=== PATIENT | female | born 1965 | race Caucasian/White ===

== ENCOUNTER → 2017-08-19 | Outpatient (CLI) | payer OTHER ==
[~2017-08-19] MED LIST: BUPR150T2; CITA20; CYCL10 PO; DOCU100 PO; HYDACE10B PO; HYDR1TAB94 PO; MAGN84; MULTI VITAMIN1 EACH PO; Norco 5-325 Ta1 EACH PO; OXYACE5T PO; Omeprazole20 M1; PANT20 PO; Percocet 5-3251 EACH PO; RABE20; RXCYCL10 PO; RXOXYACE PO; THIA100 PO; TOPI25 PO
[2017-08-19 16:56] LABS: BASOPHILS ABSOLUTE AUTO 0.07 K/mm3 (0.00-0.23); BASOPHILS PERCENT AUTO 1 % (0-2); EOSINOPHILS ABSOLUTE AUTO 0.17 K/mm3 (0.00-0.68); EOSINOPHILS PERCENT AUTO 3 % (0-6); Hematocrit 37.9 % (33.0-51.0); Hemoglobin 12.1 g/dL (11.5-16.0); IMMATURE GRAN ABSOLUTE AUTO 0.02 K/mm3 (0.00-0.10); IMMATURE GRAN PERCENT AUTO 0 % (0-1); LYMPHOCYTES ABSOLUTE AUTO 1.49 K/mm3 (0.84-5.20); LYMPHOCYTES PERCENT AUTO 28 % (21-46); MONOCYTES ABSOLUTE AUTO 0.34 K/mm3 (0.16-1.47); MONOCYTES PERCENT AUTO 6 % (4-13); Mean Corpuscular HGB 26.7 pg (26.0-34.0); Mean Corpuscular HGB Conc 31.9 g/dL (31.5-36.5); Mean Corpuscular Volume 84 fL (80-100); Mean Platelet Volume 10.8 fL (9.1-12.4); NEUTROPHILS ABSOLUTE AUTO 3.23 K/mm3 (1.96-9.15); NEUTROPHILS PERCENT AUTO 61 % (41-73); Platelet Count 264 K/mm3 (150-400); RDW Coefficient Variation 17.1 % (11.7-14.2); RDW Standard Deviation 51.3 fL (35.1-46.3); Red Blood Cell Count 4.53 M/mm3 (3.80-5.20); White Blood Cell Count 5.32 K/mm3 (4.00-11.30)
[2017-08-19 17:10] LABS: Alanine Aminotransfer (ALT/SGP 32 U/L (12-78); Alk Phos 136 U/L (40-126); Anion Gap 8 mmol/L (6-16); Aspartate Aminotrans (AST/SGOT 45 U/L (12-37); Bilirubin, Total 0.4 mg/dL (0.1-1.0); Blood Urea Nitrogen 8 mg/dL (8-24); CO2, Blood 30 mmol/L (21-32); Calcium, Blood 9.8 mg/dL (8.5-10.1); Chloride, Blood 100 mmol/L (98-108); Creatinine, Blood 0.73 mg/dL (0.40-1.00); Globulin, Blood 3.9 g/dL (2.2-4.0); Glomerular Filtration Rate >60 (60-); Glucose, Blood 111 mg/dL (70-99); Potassium, Blood 4.1 mmol/L (3.5-5.5); Sodium, Blood 138 mmol/L (136-145); Total Protein, Blood 7.9 g/dL (6.4-8.2)
[2017-08-19 17:12] LABS: Troponin I <0.017 ng/mL (0.000-0.040)
== END ==
LOC: LAB SHORT 16:49 → LAB EV 16:49
PROVIDERS: Family Medicine
DX: R06.02 Shortness of breath (principal)
CPT/HCPCS: 80048; 80053; 84484; 85025

== ENCOUNTER 2019-08-02 11:17 | Inpatient (IN) | payer OTHER ==
[~2019-08-02] VITALS: Ht 157.5 cm; Wt 97.5 kg
[2019-08-02 12:49] LABS: BASOPHILS ABSOLUTE AUTO 0.02 K/mm3 (0.00-0.23); BASOPHILS PERCENT AUTO 0 % (0-2); EOSINOPHILS ABSOLUTE AUTO 0.03 K/mm3 (0.00-0.68); EOSINOPHILS PERCENT AUTO 1 % (0-6); Hemoglobin 13.4 g/dL (11.5-16.0); IMMATURE GRAN ABSOLUTE AUTO 0.04 K/mm3 (0.00-0.10); IMMATURE GRAN PERCENT AUTO 1 % (0-1); LYMPHOCYTES ABSOLUTE AUTO 0.93 K/mm3 (0.84-5.20); LYMPHOCYTES PERCENT AUTO 15 % (21-46); MONOCYTES PERCENT AUTO 10 % (4-13); Mean Corpuscular HGB 30.5 pg (26.0-34.0); Mean Corpuscular HGB Conc 31.9 g/dL (31.5-36.5); Mean Corpuscular Volume 96 fL (80-100); Mean Platelet Volume 12.5 fL (9.1-12.4); NEUTROPHILS ABSOLUTE AUTO 4.54 K/mm3 (1.96-9.15); NEUTROPHILS PERCENT AUTO 74 % (41-73); NRBC ABSOLUTE 0.02 K/mm3 (0.00-0.02); NRBC Auto 0.3 /100 WBC (0.0-0.2); Platelet Count 180 K/mm3 (150-400); RDW Coefficient Variation 21.4 % (11.7-14.2); RDW Standard Deviation 74.3 fL (35.1-46.3); White Blood Cell Count 6.16 K/mm3 (4.00-11.30)
[2019-08-02 13:09] LABS: Alanine Aminotransfer (ALT/SGP 122 U/L (12-78); Albumin, Blood 3.1 g/dL (3.4-5.0); Albumin/Globulin Ratio 0.7 (0.8-1.8); Alk Phos 331 U/L (50-136); Anion Gap 7 mmol/L (6-16); Aspartate Aminotrans (AST/SGOT 249 U/L (12-37); Bilirubin, Total 8.1 mg/dL (0.1-1.0); Blood Urea Nitrogen 3 mg/dL (8-24); Bun/Creatinine Ratio 6.3 (12.0-20.0); CO2, Blood 28 mmol/L (21-32); Calcium, Blood 9.2 mg/dL (8.5-10.1); Chloride, Blood 96 mmol/L (98-108); Creatinine, Blood 0.48 mg/dL (0.40-1.00); Globulin, Blood 4.6 g/dL (2.2-4.0); Glomerular Filtration Rate >60 (60-); Glucose, Blood 94 mg/dL (70-99); Potassium, Blood 5.2 mmol/L (3.5-5.5); Sodium, Blood 131 mmol/L (136-145); Total Protein, Blood 7.7 g/dL (6.4-8.2)
--- NOTE | 2019-08-02 20:28 | NUR ---
54 YR OLD FEMALE ADMITTED TO FLOOR FROM THE ED WITH PANCREATITIS - ETOH. CALL LIGHT IN REACH.
[2019-08-03 05:09] LABS: BASOPHILS ABSOLUTE AUTO 0.06 K/mm3 (0.00-0.23); BASOPHILS PERCENT AUTO 1 % (0-2); EOSINOPHILS PERCENT AUTO 1 % (0-6); Hematocrit 39.5 % (33.0-51.0); Hemoglobin 12.3 g/dL (11.5-16.0); IMMATURE GRAN ABSOLUTE AUTO 0.04 K/mm3 (0.00-0.10); IMMATURE GRAN PERCENT AUTO 1 % (0-1); LYMPHOCYTES ABSOLUTE AUTO 1.13 K/mm3 (0.84-5.20); LYMPHOCYTES PERCENT AUTO 15 % (21-46); MONOCYTES ABSOLUTE AUTO 1.08 K/mm3 (0.16-1.47); MONOCYTES PERCENT AUTO 15 % (4-13); Mean Corpuscular HGB 30.8 pg (26.0-34.0); Mean Corpuscular HGB Conc 31.1 g/dL (31.5-36.5); Mean Platelet Volume 11.6 fL (9.1-12.4); NEUTROPHILS ABSOLUTE AUTO 4.91 K/mm3 (1.96-9.15); NEUTROPHILS PERCENT AUTO 67 % (41-73); NRBC ABSOLUTE 0.04 K/mm3 (0.00-0.02); NRBC Auto 0.5 /100 WBC (0.0-0.2); Platelet Count 156 K/mm3 (150-400); RDW Coefficient Variation 21.1 % (11.7-14.2); RDW Standard Deviation 76.1 fL (35.1-46.3); Red Blood Cell Count 3.99 M/mm3 (3.80-5.20); White Blood Cell Count 7.32 K/mm3 (4.00-11.30)
[2019-08-03 05:15] LABS: Mean Corpuscular Volume 99 fL (80-100)
[2019-08-03 06:02] LABS: Alanine Aminotransfer (ALT/SGP 100 U/L (12-78); Albumin, Blood 2.9 g/dL (3.4-5.0); Albumin/Globulin Ratio 0.8 (0.8-1.8); Alk Phos 287 U/L (50-136); Anion Gap 9 mmol/L (6-16); Aspartate Aminotrans (AST/SGOT 190 U/L (12-37); Bilirubin, Total 8.7 mg/dL (0.1-1.0); Blood Urea Nitrogen 4 mg/dL (8-24); Bun/Creatinine Ratio 3.7 (12.0-20.0); CO2, Blood 27 mmol/L (21-32); Calcium, Blood 8.6 mg/dL (8.5-10.1); Chloride, Blood 97 mmol/L (98-108); Creatinine, Blood 1.07 mg/dL (0.40-1.00); Globulin, Blood 3.7 g/dL (2.2-4.0); Glomerular Filtration Rate 57 (60-); Glucose, Blood 84 mg/dL (70-99); Sodium, Blood 133 mmol/L (136-145); Total Protein, Blood 6.6 g/dL (6.4-8.2); Triglycerides 258 mg/dL (30-160)
[2019-08-03 06:07] LABS: Potassium, Blood 3.1 mmol/L (3.5-5.5)
--- NOTE | 2019-08-03 16:25 | NUR ---
Initial spiritual care note: Marina was welcoming of conversation and prayer. She admits to being alcoholic and spoke at length about her relapse back into drinking. She is familiar with the AA 12-step program and plans to become active in the program post-discharge. She has a list of all AA meetings in [facility] as well as a list of contacts. Marina was appreciaitve of gentle disability counselor and prayer. She is hopeful for the future. I will remain available.
--- NOTE | 2019-08-03 20:25 | NUR ---
SHIFT SUMMARY: PT CALM AND COOPERATIVE THIS SHIFT. PAIN BETTER CONTROLLED AFTER INCREASE IN DILAUDID DOSE. PLACED ON "UNOFFICIAL" CLEARS PRE DR. DAMON AND IS TOLERATING APPLE JUICE WITHOUT N/V AND NO REPORTED INCREASE IN PAIN. GETTING UP TO BR WITH SBA, CALLS APPROPRIATELY. SLIGHT JAUNDICE NOTED. WAS SEEN BY SERENITY BEE KEEPER, PLAN MAY BE OUTPT TREATMENT.
--- NOTE | 2019-08-04 03:12 | NUR ---
SHIFT SUMMARY HAS BEEN RESTING QUIETLY WITH FEW INTERRUPTIONS. IVF OF NS CONTINUES AT 125 ML PER HR. ANALGESIC ADMINISTERED FOR ABD PAIN. TOLERATING CLEAR LIQUIDS. CALL LIGHT IN REACH
[2019-08-04 05:11] LABS: BASOPHILS ABSOLUTE AUTO 0.06 K/mm3 (0.00-0.23); BASOPHILS PERCENT AUTO 1 % (0-2); EOSINOPHILS ABSOLUTE AUTO 0.09 K/mm3 (0.00-0.68); EOSINOPHILS PERCENT AUTO 1 % (0-6); Hematocrit 39.3 % (33.0-51.0); Hemoglobin 11.8 g/dL (11.5-16.0); IMMATURE GRAN ABSOLUTE AUTO 0.07 K/mm3 (0.00-0.10); IMMATURE GRAN PERCENT AUTO 1 % (0-1); LYMPHOCYTES ABSOLUTE AUTO 1.16 K/mm3 (0.84-5.20); LYMPHOCYTES PERCENT AUTO 13 % (21-46); MONOCYTES ABSOLUTE AUTO 1.39 K/mm3 (0.16-1.47); MONOCYTES PERCENT AUTO 16 % (4-13); Mean Corpuscular HGB 30.8 pg (26.0-34.0); Mean Platelet Volume 11.8 fL (9.1-12.4); NEUTROPHILS ABSOLUTE AUTO 5.93 K/mm3 (1.96-9.15); NEUTROPHILS PERCENT AUTO 68 % (41-73); NRBC ABSOLUTE 0.05 K/mm3 (0.00-0.02); NRBC Auto 0.6 /100 WBC (0.0-0.2); Platelet Count 161 K/mm3 (150-400); RDW Coefficient Variation 21.6 % (11.7-14.2); RDW Standard Deviation 82.4 fL (35.1-46.3); Red Blood Cell Count 3.83 M/mm3 (3.80-5.20)
[2019-08-04 05:26] LABS: Mean Corpuscular Volume 103 fL (80-100)
[2019-08-04 05:36] LABS: Albumin, Blood 2.8 g/dL (3.4-5.0); Albumin/Globulin Ratio 0.8 (0.8-1.8); Bilirubin, Total 11.5 mg/dL (0.1-1.0); Bun/Creatinine Ratio 3.5 (12.0-20.0); Calcium, Blood 8.9 mg/dL (8.5-10.1); Creatinine, Blood 2.3 mg/dL (0.40-1.00); Globulin, Blood 3.7 g/dL (2.2-4.0); Potassium, Blood 4.5 mmol/L (3.5-5.5); Total Protein, Blood 6.5 g/dL (6.4-8.2)
[2019-08-04 11:03] LABS: Source, Urine Clean Catch
[2019-08-04 11:05] LABS: International Normalized Ratio 1.14; Prothrombin Time Results 12.1 Sec (9.7-11.5)
[2019-08-04 11:07] LABS: Uric Acid, Blood 5.9 mg/dL (2.6-6.0)
[2019-08-04 11:17] LABS: Albumin, Blood 2.8 g/dL (3.4-5.0); Albumin/Globulin Ratio 0.8 (0.8-1.8); Bilirubin, Total 11.7 mg/dL (0.1-1.0); Calcium, Blood 8.7 mg/dL (8.5-10.1); Creatinine, Blood 1.99 mg/dL (0.40-1.00); Globulin, Blood 3.6 g/dL (2.2-4.0); Potassium, Blood 4.1 mmol/L (3.5-5.5); Thyroid Stimulating Hormone 3.26 uIU/mL (0.360-4.800); Total Protein, Blood 6.4 g/dL (6.4-8.2)
[2019-08-04 12:26] LABS: Appearance, Urine Turbid (Clear); Blood, Urine 5+ (Neg); Color, Urine Brown (P-Yellow); Glucose Qualitative, Urine Neg (Neg); Ketones, Urine 1+ (Neg); Leukocyte Esterase, Urine 1+ (Neg); Nitrite, Urine Neg (Neg); Protein, Urine 3+ (Neg); Urobilinogen, Urine 3+ (Normal)
[2019-08-04 12:41] LABS: Bilirubin, Urine 3+ (Neg)
[2019-08-04 12:44] LABS: Amorphous Mod (0-Heavy); Bacteria Mod /hpf; Mucus Light (0-Heavy); Squamous Epithelial Cells Mod /hpf (Few)
[2019-08-04 12:45] LABS: Granular Casts 50-100 /lpf (0)
--- NOTE | 2019-08-04 19:33 | NUR ---
SHIFT SUMMARY: NO ACUTE EVENTS THIS SHIFT. C/O ABDOMEN, BILAT HIP, AND BACK PAIN; MEDICATED PER EMAR WITH ADEQUATE RELIEF. GETTING UP TO BR WITH 1 PERSON ASSIST, TREMULOUS, STATED SHE FEELS WEAK; MAY BENEFIT FROM PT EVAL PRIOR TO D/C. TOLERATING FULL LIQ DIET, NO N/V OR REPORTED INCREASE IN PAIN. URINE IS VERY DARK YELLOW, SPECIMEN SENT FOR CULTURE. PLAN IS OUTPT ALCOHOL TREATMENT.
--- NOTE | 2019-08-05 05:26 | NUR ---
SHIFT SUMMARY: VSS. PULSE 101. AFEB. 02 99% ON RA. RESPS REG, NON-LABORED. CIWA SCORE 7. MED FOR LOWER ABD, HIP, BACK PAIN X2. PT REQUESTING PAIN MED Q 3 HRS. TREMULOUS EXT. DID NOT OBSERVE T/F TONIGHT. IV FLUIDS CONTINUOUSLY ORDERED. ABD SOFT, TENDER IN RUQ AND RLQ W/PALPATION. NO N/V. KIRILL CLEAR LIQUIDS WELL. NO ACUTE CHANGES OVERNIGHT. WILL CONT TO MONITOR.
[2019-08-05 07:01] LABS: Alanine Aminotransfer (ALT/SGP 80 U/L (12-78); Albumin, Blood 2.4 g/dL (3.4-5.0); Albumin/Globulin Ratio 0.7 (0.8-1.8); Alk Phos 264 U/L (50-136); Anion Gap 8 mmol/L (6-16); Aspartate Aminotrans (AST/SGOT 160 U/L (12-37); Bilirubin, Total 10.9 mg/dL (0.1-1.0); Blood Urea Nitrogen 8 mg/dL (8-24); CO2, Blood 22 mmol/L (21-32); Calcium, Blood 8.6 mg/dL (8.5-10.1); Chloride, Blood 101 mmol/L (98-108); Creatinine, Blood 0.89 mg/dL (0.40-1.00); Globulin, Blood 3.4 g/dL (2.2-4.0); Glomerular Filtration Rate >60 (60-); Glucose, Blood 74 mg/dL (70-99); Potassium, Blood 3.7 mmol/L (3.5-5.5); Sodium, Blood 131 mmol/L (136-145); Total Protein, Blood 5.8 g/dL (6.4-8.2)
--- NOTE | 2019-08-05 17:46 | NUR ---
SHIFT SUMMARY PATIENT MEDICATED SEVERAL TIMES FOR PAIN. DENIES NAUSEA AND SHORTNESS OF BREATH. PATIENT WORKED WITH PT TODAY, UP SBA, WALKED IN HALLWAY BRIEFLY. PATIENT NAPPING OFF AND ON DURING SHIFT. CALL LIGHT IN REACH.
--- NOTE | 2019-08-06 04:54 | NUR ---
FALL. PT CALLED STAFF TO HER ROOM AT 0405 AND REPORTS SHE GOT UP HURRIEDLY TO GO TO THE BATHROOM BECAUSE SHE HAD TO GO "BAD" AND DIDN'T WANT TO WAIT FOR ASSIST. SHE LOST HER BALANCE UPON STANDING AND FELL BACKWARDS LANDING ON HER BUTT AND HITTING HER HEAD AGAINST THE WALL. IV CAME OUT IN THE PROCESS. PT THEN GOT UP AND WENT TO THE BATHROOM AND RETURNED TO BED WHERE SHE THEN SIMS TO REPORT THE INCIDENT. NEURO CHECKS NEGATIVE. NO S/S OF INJURY. PT STATES SHE FEELS SHOOK UP BUT OTHERWISE OK. WILL CONT TO MONITOR. REMINDED PT TO CALL FOR ASSIST AND TURNED BED ALARM ON.
--- NOTE | 2019-08-06 05:33 | NUR ---
SHIFT SUMMARY: VSS. AFEB. AAOX4. ABLE TO COMMUNICATE NEEDS. PT HAS NO RESIDUAL EVIDENT AT THIS TIME FROM EARLIER FALL. DENIES SHANE. NEURO CHECKS WNL. MEDICATED FOR PAIN CONSISTENT W/PREVIOUS REPORTS OF PAIN. PT ALTERNATING IV DILAUDID W/PO NORCO. HAS SLEPT INTERMITTENTLY. NO ACUTE CHANGES. WILL CONT TO MONITOR.
[2019-08-06 06:35] LABS: Alanine Aminotransfer (ALT/SGP 71 U/L (12-78); Albumin, Blood 2.2 g/dL (3.4-5.0); Albumin/Globulin Ratio 0.7 (0.8-1.8); Alk Phos 249 U/L (50-136); Anion Gap 8 mmol/L (6-16); Aspartate Aminotrans (AST/SGOT 133 U/L (12-37); Bilirubin, Total 10.4 mg/dL (0.1-1.0); Blood Urea Nitrogen 5 mg/dL (8-24); Bun/Creatinine Ratio 9.4 (12.0-20.0); CO2, Blood 23 mmol/L (21-32); Calcium, Blood 8.2 mg/dL (8.5-10.1); Chloride, Blood 105 mmol/L (98-108); Creatinine, Blood 0.53 mg/dL (0.40-1.00); Globulin, Blood 3.1 g/dL (2.2-4.0); Glomerular Filtration Rate >60 (60-); Glucose, Blood 77 mg/dL (70-99); Potassium, Blood 3.4 mmol/L (3.5-5.5); Sodium, Blood 136 mmol/L (136-145); Total Protein, Blood 5.3 g/dL (6.4-8.2)
[2019-08-06] MEDS ORDERED: ACET325 PO (11:16)
[2019-08-06] MEDS ORDERED: DOCU100 PO (11:17)
[2019-08-06] MEDS ORDERED: SENOKOT PO (11:17)
[2019-08-06] MEDS ORDERED: HYDR1TAB94 (11:18)
--- NOTE | 2019-08-06 11:36 | NUR ---
DISCHARGE DISCHARGE MEDICATIONS AND INSTRUCTIONS EXPLAINED TO PATIENT. PATIENT STATED UNDERSTANDING. IMPORTANCE OF ALCOHOL ABSTINENCE DISCUSSED WITH PATIENT. FOLLOW UP WITH NEW PCP SCHEDULED. IV REMOVED WITHOUT DIFFICULTY. BELONGINGS WITH PATIENT. PATIENT TRANSFERED TO PRIVATE VEHICLE VIA WHEELCHAIR.
--- NOTE | 2019-08-09 05:29 | NUR ---
I looked into pt chart as a charge nurse to fill out post fall hudle information for Arlyn Cutler.
[2019-08-10] MEDS ORDERED: OMEP20ER PO (14:45)
[2019-08-13] MEDS ORDERED: PROBIOTIC1 EA13 PO (16:57)
[2019-08-13] MEDS ORDERED: ABAT250V (16:58)
[2019-08-13] MEDS ORDERED: CEPH500 PO (16:58)
== END 2019-08-06 11:32 | disposition home or self-care (01) | DRG 432 ==
LOC: ER 11:17 → MEDS 17:16
PROVIDERS: Emergency Medicine; ADMIT Internal Medicine
DX: K70.10 Alcoholic hepatitis without ascites (principal); K85.20 Alcohol induced acute pancreatitis without necrosis or infection; N17.9 Acute kidney failure, unspecified; E87.1 Hypo-osmolality and hyponatremia; F10.20 Alcohol dependence, uncomplicated; G89.29 Other chronic pain; M54.9 Dorsalgia, unspecified; K59.00 Constipation, unspecified; Z98.84 Bariatric surgery status; F32.9 Major depressive disorder, single episode, unspecified; K21.9 Gastro-esophageal reflux disease without esophagitis; E78.89 Other lipoprotein metabolism disorders
CPT/HCPCS: 36415; 74177; 80053; 81001; 83690; 84443; 84478; 84550; 85025; 85610; 87086; 96361-59; 96374-59; 96375-59; 97116; 97161; 99285-25; A9270; A9270-GY; C9113; J1170; J1650; J2405; J3411; J3475; J3480; J7030; J7042; J7120; Q0163; Q9967

== ENCOUNTER 2019-08-20 17:01 | Emergency (ER) | payer OTHER ==
[~2019-08-20] VITALS: Ht 157.5 cm; Wt 99.8 kg
[~2019-08-20 17:01] MED LIST changes: +ABAT250V; +ACET325 PO; +CEPH500 PO; +HYDR1TAB94; +OMEP20ER PO; +PROBIOTIC1 EA13 PO; +SENOKOT PO
[2019-08-20 17:50] LABS: BASOPHILS ABSOLUTE AUTO 0.08 K/mm3 (0.00-0.23); BASOPHILS PERCENT AUTO 1 % (0-2); EOSINOPHILS PERCENT AUTO 1 % (0-6); Hematocrit 34.9 % (33.0-51.0); Hemoglobin 11.1 g/dL (11.5-16.0); IMMATURE GRAN ABSOLUTE AUTO 0.06 K/mm3 (0.00-0.10); IMMATURE GRAN PERCENT AUTO 1 % (0-1); LYMPHOCYTES ABSOLUTE AUTO 1.32 K/mm3 (0.84-5.20); LYMPHOCYTES PERCENT AUTO 11 % (21-46); MONOCYTES ABSOLUTE AUTO 1.11 K/mm3 (0.16-1.47); MONOCYTES PERCENT AUTO 10 % (4-13); Mean Corpuscular HGB 31.4 pg (26.0-34.0); Mean Corpuscular HGB Conc 31.8 g/dL (31.5-36.5); Mean Corpuscular Volume 99 fL (80-100); Mean Platelet Volume 11.8 fL (9.1-12.4); NEUTROPHILS ABSOLUTE AUTO 8.92 K/mm3 (1.96-9.15); NEUTROPHILS PERCENT AUTO 77 % (41-73); Platelet Count 234 K/mm3 (150-400); RDW Coefficient Variation 21.2 % (11.7-14.2); RDW Standard Deviation 76.9 fL (35.1-46.3); Red Blood Cell Count 3.53 M/mm3 (3.80-5.20); White Blood Cell Count 11.59 K/mm3 (4.00-11.30)
[2019-08-20 18:12] LABS: Alanine Aminotransfer (ALT/SGP 64 U/L (12-78); Albumin, Blood 1.4 g/dL (3.4-5.0); Albumin/Globulin Ratio 0.4 (0.8-1.8); Alk Phos 254 U/L (50-136); Anion Gap 7 mmol/L (6-16); Aspartate Aminotrans (AST/SGOT 191 U/L (12-37); Bilirubin, Direct 12.4 mg/dL (0.0-0.3); Bilirubin, Indirect 2.8 mg/dL (0.1-0.7); Bilirubin, Total 15.2 mg/dL (0.1-1.0); Blood Urea Nitrogen 4 mg/dL (8-24); Bun/Creatinine Ratio 7.8 (12.0-20.0); CO2, Blood 22 mmol/L (21-32); Calcium, Blood 8.1 mg/dL (8.5-10.1); Chloride, Blood 101 mmol/L (98-108); Creatinine, Blood 0.51 mg/dL (0.40-1.00); Globulin, Blood 3.9 g/dL (2.2-4.0); Glomerular Filtration Rate >60 (60-); Glucose, Blood 89 mg/dL (70-99); Potassium, Blood 4.2 mmol/L (3.5-5.5); Sodium, Blood 130 mmol/L (136-145); Total Protein, Blood 5.3 g/dL (6.4-8.2); Troponin I <0.015 ng/mL (0.000-0.040)
[2019-08-20] MEDS ORDERED: B-1100 M1 PO (19:43)
[2019-08-20] MEDS ORDERED: ONDA4ODT MM (19:43)
[2019-08-20] MEDS ORDERED: Klonopin0.5 MG PO (19:44)
[2019-08-20 19:45] LABS: Source, Urine Clean Catch
[2019-08-20 19:53] LABS: Blood, Urine 2+ (Neg); Glucose Qualitative, Urine Neg (Neg); Ketones, Urine Neg (Neg); Leukocyte Esterase, Urine Neg (Neg); Nitrite, Urine Neg (Neg); Protein, Urine Neg (Neg); Urobilinogen, Urine 2+ (Normal); pH, Urine 6.5 (5.0-8.0)
[2019-08-20 20:08] LABS: Appearance, Urine Hazy (Clear); Bilirubin, Urine 3+ (Neg); Color, Urine Orange (P-Yellow); Red Blood Cells, Urine Not Seen /hpf (0-2); White Blood Cells, Urine Not Seen /hpf (0-5)
[2019-08-20 20:09] LABS: Bacteria Rare /hpf; Squamous Epithelial Cells Mod /hpf (Few); Transitional Epithelial Cells Mod /hpf (0-Rare)
== END 2019-08-20 20:20 | disposition home or self-care (01) ==
LOC: ER 17:01
PROVIDERS: Physician Assistant
DX: K70.9 Alcoholic liver disease, unspecified (principal); F32.9 Major depressive disorder, single episode, unspecified; K21.9 Gastro-esophageal reflux disease without esophagitis; Z79.899 Other long term (current) drug therapy; Z79.2 Long term (current) use of antibiotics
CPT/HCPCS: 36415; 71046; 80048; 80076; 81001; 83690; 83880; 84484; 85025; 93005; 93010; 99284-25

== ENCOUNTER 2019-09-09 17:33 | Inpatient (IN) | payer OTHER ==
[~2019-09-09] VITALS: Ht 157.5 cm; Wt 115.6 kg
[~2019-09-09 17:33] MED LIST changes: +B-1100 M1 PO; +Klonopin0.5 MG PO; +ONDA4ODT MM
[2019-09-09] MEDS ORDERED: FURO40 PO (17:54)
[2019-09-09 18:17] LABS: BASOPHILS ABSOLUTE AUTO 0.06 K/mm3 (0.00-0.23); BASOPHILS PERCENT AUTO 0 % (0-2); EOSINOPHILS ABSOLUTE AUTO 0.07 K/mm3 (0.00-0.68); EOSINOPHILS PERCENT AUTO 0 % (0-6); Hematocrit 39.8 % (33.0-51.0); Hemoglobin 13.4 g/dL (11.5-16.0); IMMATURE GRAN ABSOLUTE AUTO 0.24 K/mm3 (0.00-0.10); IMMATURE GRAN PERCENT AUTO 1 % (0-1); LYMPHOCYTES ABSOLUTE AUTO 2.07 K/mm3 (0.84-5.20); LYMPHOCYTES PERCENT AUTO 9 % (21-46); MONOCYTES PERCENT AUTO 8 % (4-13); Mean Corpuscular HGB 31.2 pg (26.0-34.0); Mean Corpuscular HGB Conc 33.7 g/dL (31.5-36.5); Mean Corpuscular Volume 93 fL (80-100); Mean Platelet Volume 11.7 fL (9.1-12.4); NEUTROPHILS ABSOLUTE AUTO 19.22 K/mm3 (1.96-9.15); NEUTROPHILS PERCENT AUTO 82 % (41-73); NRBC ABSOLUTE 0.02 K/mm3 (0.00-0.02); NRBC Auto 0.1 /100 WBC (0.0-0.2); Platelet Count 320 K/mm3 (150-400); RDW Coefficient Variation 19.6 % (11.7-14.2); RDW Standard Deviation 66.4 fL (35.1-46.3); Red Blood Cell Count 4.29 M/mm3 (3.80-5.20); White Blood Cell Count 23.46 K/mm3 (4.00-11.30)
[2019-09-09 18:39] LABS: Alanine Aminotransfer (ALT/SGP 98 U/L (12-78); Albumin, Blood 1.2 g/dL (3.4-5.0); Albumin/Globulin Ratio 0.3 (0.8-1.8); Alk Phos 289 U/L (50-136); Aspartate Aminotrans (AST/SGOT 195 U/L (12-37); Bilirubin, Direct 11.1 mg/dL (0.0-0.3); Bilirubin, Indirect 2.5 mg/dL (0.1-0.7); Bilirubin, Total 13.6 mg/dL (0.1-1.0); Globulin, Blood 4.2 g/dL (2.2-4.0); Total Protein, Blood 5.4 g/dL (6.4-8.2)
[2019-09-09 22:01] LABS: Source, Urine Clean Catch
[2019-09-09 22:08] LABS: Appearance, Urine Hazy (Clear); Bilirubin, Urine 3+ (Neg); Blood, Urine 2+ (Neg); Color, Urine Amber (P-Yellow); Glucose Qualitative, Urine Neg (Neg); Ketones, Urine 1+ (Neg); Leukocyte Esterase, Urine 1+ (Neg); Nitrite, Urine Pos (Neg); Protein, Urine 2+ (Neg); Urobilinogen, Urine 4+ (Normal)
[2019-09-09 22:16] LABS: Amorphous Mod (0-Heavy); Bacteria Mod /hpf; Granular Casts 0-2 /lpf (0); Mucus Light (0-Heavy); Red Blood Cells, Urine 0-2 /hpf (0-2); Squamous Epithelial Cells Mod /hpf (Few)
[2019-09-09] MEDS ORDERED: Citalopram HBr40 MG PO (22:47)
[2019-09-09] MEDS ORDERED: ROXICODONE5 MG PO (22:57)
[2019-09-09] MEDS ORDERED: SUCR1 PO (22:58)
[2019-09-09] MEDS ORDERED: OMEP20ER PO (22:58)
[2019-09-10 00:18] LABS: Anion Gap 12 mmol/L (6-16); Blood Urea Nitrogen 12 mg/dL (8-24); Bun/Creatinine Ratio 20.1 (12.0-20.0); CO2, Blood 25 mmol/L (21-32); Calcium, Blood 7.8 mg/dL (8.5-10.1); Chloride, Blood 92 mmol/L (98-108); Glomerular Filtration Rate >60 (60-); Glucose, Blood 96 mg/dL (70-99); Sodium, Blood 129 mmol/L (136-145)
[2019-09-10 00:21] LABS: Potassium, Blood 2.4 mmol/L (3.5-5.5)
[2019-09-10 01:52] LABS: International Normalized Ratio 1.6; Prothrombin Time Results 16.7 Sec (9.7-11.5)
[2019-09-10 02:01] LABS: Magnesium, Blood 2.1 mg/dL (1.6-2.4); Phosphorus, Blood 2.6 mg/dL (2.5-4.9); Thyroid Stimulating Hormone 1.71 uIU/mL (0.360-4.800)
[2019-09-10 04:54] LABS: Source, Urine Catheter
[2019-09-10 04:57] LABS: Blood, Urine 2+ (Neg); Glucose Qualitative, Urine Neg (Neg); Ketones, Urine 1+ (Neg); Leukocyte Esterase, Urine 1+ (Neg); Nitrite, Urine Pos (Neg); Protein, Urine 2+ (Neg); Urobilinogen, Urine 3+ (Normal)
[2019-09-10 05:00] LABS: Appearance, Urine Hazy (Clear); Bilirubin, Urine 3+ (Neg); Color, Urine Amber (P-Yellow)
[2019-09-10 05:04] LABS: White Blood Cells, Urine 0-2 /hpf (0-5)
[2019-09-10 05:05] LABS: Amorphous Heavy (0-Heavy); Bacteria Mod /hpf; Granular Casts 25-50 /lpf (0); Red Blood Cells, Urine 0-2 /hpf (0-2); Squamous Epithelial Cells Rare /hpf (Few)
[2019-09-10 09:02] LABS: BASOPHILS ABSOLUTE AUTO 0.07 K/mm3 (0.00-0.23); BASOPHILS PERCENT AUTO 0 % (0-2); EOSINOPHILS ABSOLUTE AUTO 0.16 K/mm3 (0.00-0.68); EOSINOPHILS PERCENT AUTO 1 % (0-6); Hematocrit 35.6 % (33.0-51.0); IMMATURE GRAN ABSOLUTE AUTO 0.26 K/mm3 (0.00-0.10); IMMATURE GRAN PERCENT AUTO 1 % (0-1); LYMPHOCYTES ABSOLUTE AUTO 2.05 K/mm3 (0.84-5.20); LYMPHOCYTES PERCENT AUTO 8 % (21-46); MONOCYTES ABSOLUTE AUTO 2.24 K/mm3 (0.16-1.47); MONOCYTES PERCENT AUTO 9 % (4-13); Mean Corpuscular HGB 31.5 pg (26.0-34.0); Mean Corpuscular HGB Conc 33.7 g/dL (31.5-36.5); Mean Corpuscular Volume 93 fL (80-100); NEUTROPHILS ABSOLUTE AUTO 21.58 K/mm3 (1.96-9.15); NEUTROPHILS PERCENT AUTO 82 % (41-73); Platelet Count 322 K/mm3 (150-400); RDW Coefficient Variation 19.5 % (11.7-14.2); RDW Standard Deviation 66.8 fL (35.1-46.3); Red Blood Cell Count 3.81 M/mm3 (3.80-5.20); White Blood Cell Count 26.36 K/mm3 (4.00-11.30)
[2019-09-10 09:19] LABS: Alanine Aminotransfer (ALT/SGP 82 U/L (12-78); Albumin, Blood 1.6 g/dL (3.4-5.0); Albumin/Globulin Ratio 0.5 (0.8-1.8); Alk Phos 245 U/L (50-136); Anion Gap 6 mmol/L (6-16); Aspartate Aminotrans (AST/SGOT 171 U/L (12-37); Bilirubin, Total 13.3 mg/dL (0.1-1.0); Blood Urea Nitrogen 10 mg/dL (8-24); CO2, Blood 29 mmol/L (21-32); Calcium, Blood 7.7 mg/dL (8.5-10.1); Chloride, Blood 98 mmol/L (98-108); Globulin, Blood 3.4 g/dL (2.2-4.0); Glomerular Filtration Rate >60 (60-); Glucose, Blood 108 mg/dL (70-99); Potassium, Blood 3.1 mmol/L (3.5-5.5); Sodium, Blood 133 mmol/L (136-145)
[2019-09-10 16:47] LABS: Phosphorus, Blood 3.1 mg/dL (2.5-4.9); Potassium, Blood 3.9 mmol/L (3.5-5.5)
[2019-09-11 04:31] LABS: BASOPHILS ABSOLUTE AUTO 0.05 K/mm3 (0.00-0.23); BASOPHILS PERCENT AUTO 0 % (0-2); EOSINOPHILS PERCENT AUTO 0 % (0-6); Hematocrit 33.7 % (33.0-51.0); Hemoglobin 11.2 g/dL (11.5-16.0); IMMATURE GRAN ABSOLUTE AUTO 0.25 K/mm3 (0.00-0.10); IMMATURE GRAN PERCENT AUTO 1 % (0-1); LYMPHOCYTES ABSOLUTE AUTO 2.23 K/mm3 (0.84-5.20); LYMPHOCYTES PERCENT AUTO 9 % (21-46); MONOCYTES ABSOLUTE AUTO 1.16 K/mm3 (0.16-1.47); MONOCYTES PERCENT AUTO 5 % (4-13); Mean Corpuscular HGB 31.5 pg (26.0-34.0); Mean Corpuscular HGB Conc 33.2 g/dL (31.5-36.5); Mean Corpuscular Volume 95 fL (80-100); Mean Platelet Volume 11.2 fL (9.1-12.4); NEUTROPHILS ABSOLUTE AUTO 20.94 K/mm3 (1.96-9.15); NEUTROPHILS PERCENT AUTO 85 % (41-73); Platelet Count 312 K/mm3 (150-400); RDW Standard Deviation 65.9 fL (35.1-46.3); Red Blood Cell Count 3.55 M/mm3 (3.80-5.20); White Blood Cell Count 24.63 K/mm3 (4.00-11.30)
[2019-09-11 04:55] LABS: Alanine Aminotransfer (ALT/SGP 84 U/L (12-78); Albumin, Blood 1.3 g/dL (3.4-5.0); Albumin/Globulin Ratio 0.4 (0.8-1.8); Alk Phos 233 U/L (50-136); Anion Gap 5 mmol/L (6-16); Aspartate Aminotrans (AST/SGOT 157 U/L (12-37); Bilirubin, Total 11.1 mg/dL (0.1-1.0); Blood Urea Nitrogen 8 mg/dL (8-24); Bun/Creatinine Ratio 23.9 (12.0-20.0); CO2, Blood 28 mmol/L (21-32); Calcium, Blood 7.8 mg/dL (8.5-10.1); Chloride, Blood 99 mmol/L (98-108); Creatinine, Blood 0.34 mg/dL (0.40-1.00); Globulin, Blood 3.5 g/dL (2.2-4.0); Glomerular Filtration Rate >60 (60-); Glucose, Blood 137 mg/dL (70-99); International Normalized Ratio 1.79; Magnesium, Blood 2.3 mg/dL (1.6-2.4); Phosphorus, Blood 1.9 mg/dL (2.5-4.9); Potassium, Blood 3.6 mmol/L (3.5-5.5); Prothrombin Time Results 18.5 Sec (9.7-11.5); Sodium, Blood 132 mmol/L (136-145); Total Protein, Blood 4.8 g/dL (6.4-8.2)
[2019-09-11 11:28] LABS: Source, Urine Catheter
[2019-09-11 11:58] LABS: Appearance, Urine Clear (Clear); Blood, Urine 1+ (Neg); Color, Urine Amber (P-Yellow); Glucose Qualitative, Urine Neg (Neg); Ketones, Urine Neg (Neg); Leukocyte Esterase, Urine 1+ (Neg); Nitrite, Urine Neg (Neg); Protein, Urine 1+ (Neg); Urobilinogen, Urine 2+ (Normal)
[2019-09-11 12:30] LABS: Bilirubin, Urine 3+ (Neg)
[2019-09-11 12:33] LABS: Red Blood Cells, Urine 0-2 /hpf (0-2); Squamous Epithelial Cells Few /hpf (Few)
[2019-09-11 12:34] LABS: Bacteria Rare /hpf; Mucus Light (0-Heavy)
[2019-09-11 12:40] LABS: Free Thyroxine 1.02 ng/dL (0.70-1.60)
[2019-09-11 12:42] LABS: Thyroid Stimulating Hormone 2.46 uIU/mL (0.360-4.800)
[2019-09-11 15:23] LABS: Phosphorus, Blood 2.5 mg/dL (2.5-4.9)
[2019-09-12 04:12] LABS: BASOPHILS ABSOLUTE AUTO 0.04 K/mm3 (0.00-0.23); BASOPHILS PERCENT AUTO 0 % (0-2); EOSINOPHILS ABSOLUTE AUTO 0.03 K/mm3 (0.00-0.68); EOSINOPHILS PERCENT AUTO 0 % (0-6); Hematocrit 34.4 % (33.0-51.0); Hemoglobin 11.4 g/dL (11.5-16.0); IMMATURE GRAN ABSOLUTE AUTO 0.32 K/mm3 (0.00-0.10); IMMATURE GRAN PERCENT AUTO 1 % (0-1); LYMPHOCYTES ABSOLUTE AUTO 2.18 K/mm3 (0.84-5.20); LYMPHOCYTES PERCENT AUTO 8 % (21-46); MONOCYTES ABSOLUTE AUTO 1.44 K/mm3 (0.16-1.47); MONOCYTES PERCENT AUTO 6 % (4-13); Mean Corpuscular HGB 31.5 pg (26.0-34.0); Mean Corpuscular HGB Conc 33.1 g/dL (31.5-36.5); Mean Corpuscular Volume 95 fL (80-100); Mean Platelet Volume 11.2 fL (9.1-12.4); NEUTROPHILS PERCENT AUTO 85 % (41-73); Platelet Count 302 K/mm3 (150-400); RDW Coefficient Variation 19.2 % (11.7-14.2); RDW Standard Deviation 66.5 fL (35.1-46.3); Red Blood Cell Count 3.62 M/mm3 (3.80-5.20); White Blood Cell Count 26.41 K/mm3 (4.00-11.30)
[2019-09-12 04:26] LABS: International Normalized Ratio 1.56; Prothrombin Time Results 16.3 Sec (9.7-11.5)
[2019-09-12 04:40] LABS: Alanine Aminotransfer (ALT/SGP 89 U/L (12-78); Albumin, Blood 1.3 g/dL (3.4-5.0); Anion Gap 5 mmol/L (6-16); Aspartate Aminotrans (AST/SGOT 152 U/L (12-37); Blood Urea Nitrogen 7 mg/dL (8-24); Bun/Creatinine Ratio 19.4 (12.0-20.0); CO2, Blood 28 mmol/L (21-32); Calcium, Blood 8.1 mg/dL (8.5-10.1); Chloride, Blood 100 mmol/L (98-108); Creatinine, Blood 0.36 mg/dL (0.40-1.00); Glomerular Filtration Rate >60 (60-); Glucose, Blood 106 mg/dL (70-99); Magnesium, Blood 2.1 mg/dL (1.6-2.4); Phosphorus, Blood 2.2 mg/dL (2.5-4.9); Potassium, Blood 3.8 mmol/L (3.5-5.5); Sodium, Blood 133 mmol/L (136-145)
[2019-09-12 04:43] LABS: Albumin/Globulin Ratio 0.4 (0.8-1.8); Alk Phos 232 U/L (50-136); Bilirubin, Total 8.9 mg/dL (0.1-1.0); Globulin, Blood 3.4 g/dL (2.2-4.0); Total Protein, Blood 4.7 g/dL (6.4-8.2)
[2019-09-12 07:11] LABS: COMPLEMENT C3, SERUM 89 mg/dL (82-167); COMPLEMENT C4, SERUM 18 mg/dL (14-44)
[2019-09-12 08:10] LABS: HBSAG SCREEN Negative (Negative); HEP A AB, IGM Negative (Negative); HEP B CORE AB, IGM Negative (Negative); HEP B CORE AB, TOT Negative (Negative); HEP C VIRUS AB <0.1 (0.0-0.9)
[2019-09-13 03:55] LABS: BASOPHILS ABSOLUTE AUTO 0.01 K/mm3 (0.00-0.23); BASOPHILS PERCENT AUTO 0 % (0-2); EOSINOPHILS ABSOLUTE AUTO 0.02 K/mm3 (0.00-0.68); EOSINOPHILS PERCENT AUTO 0 % (0-6); Hematocrit 32.6 % (33.0-51.0); Hemoglobin 10.9 g/dL (11.5-16.0); IMMATURE GRAN ABSOLUTE AUTO 0.14 K/mm3 (0.00-0.10); IMMATURE GRAN PERCENT AUTO 1 % (0-1); LYMPHOCYTES ABSOLUTE AUTO 1.32 K/mm3 (0.84-5.20); LYMPHOCYTES PERCENT AUTO 8 % (21-46); MONOCYTES ABSOLUTE AUTO 0.88 K/mm3 (0.16-1.47); MONOCYTES PERCENT AUTO 5 % (4-13); Mean Corpuscular HGB 32.1 pg (26.0-34.0); Mean Corpuscular HGB Conc 33.4 g/dL (31.5-36.5); Mean Corpuscular Volume 96 fL (80-100); Mean Platelet Volume 11.1 fL (9.1-12.4); NEUTROPHILS ABSOLUTE AUTO 14.34 K/mm3 (1.96-9.15); NEUTROPHILS PERCENT AUTO 86 % (41-73); Platelet Count 205 K/mm3 (150-400); RDW Coefficient Variation 19.3 % (11.7-14.2); White Blood Cell Count 16.71 K/mm3 (4.00-11.30)
[2019-09-13 04:18] LABS: Alanine Aminotransfer (ALT/SGP 93 U/L (12-78); Albumin, Blood 1.2 g/dL (3.4-5.0); Albumin/Globulin Ratio 0.4 (0.8-1.8); Alk Phos 219 U/L (50-136); Anion Gap 2 mmol/L (6-16); Aspartate Aminotrans (AST/SGOT 149 U/L (12-37); Bilirubin, Total 7.8 mg/dL (0.1-1.0); Blood Urea Nitrogen 8 mg/dL (8-24); CO2, Blood 30 mmol/L (21-32); Calcium, Blood 7.9 mg/dL (8.5-10.1); Chloride, Blood 100 mmol/L (98-108); Creatinine, Blood 0.38 mg/dL (0.40-1.00); Globulin, Blood 3.3 g/dL (2.2-4.0); Glomerular Filtration Rate >60 (60-); Glucose, Blood 87 mg/dL (70-99); Magnesium, Blood 2.3 mg/dL (1.6-2.4); Phosphorus, Blood 2.8 mg/dL (2.5-4.9); Sodium, Blood 132 mmol/L (136-145); Total Protein, Blood 4.5 g/dL (6.4-8.2)
[2019-09-13 09:51] LABS: ANA Pattern Homogenous; Antinuclear Antibody Screen Positive (Negative)
[2019-09-13 15:08] LABS: ANTI-DSDNA ANTIBODIES <1 IU/mL (0-9); RNP ANTIBODIES 0.9 AI (0.0-0.9); SJOGREN'S ANTI-SS-A <0.2 AI (0.0-0.9); SJOGREN'S ANTI-SS-B <0.2 AI (0.0-0.9); SMITH ANTIBODIES <0.2 AI (0.0-0.9)
[2019-09-14 12:54] LABS: Hematocrit 38.9 % (33.0-51.0); Hemoglobin 12.8 g/dL (11.5-16.0)
[2019-09-15 04:47] LABS: BASOPHILS ABSOLUTE AUTO 0.04 K/mm3 (0.00-0.23); BASOPHILS PERCENT AUTO 0 % (0-2); EOSINOPHILS ABSOLUTE AUTO 0.06 K/mm3 (0.00-0.68); EOSINOPHILS PERCENT AUTO 0 % (0-6); Hematocrit 37.4 % (33.0-51.0); Hemoglobin 12.2 g/dL (11.5-16.0); IMMATURE GRAN ABSOLUTE AUTO 0.33 K/mm3 (0.00-0.10); IMMATURE GRAN PERCENT AUTO 1 % (0-1); LYMPHOCYTES ABSOLUTE AUTO 2.07 K/mm3 (0.84-5.20); LYMPHOCYTES PERCENT AUTO 9 % (21-46); MONOCYTES ABSOLUTE AUTO 1.07 K/mm3 (0.16-1.47); MONOCYTES PERCENT AUTO 5 % (4-13); Mean Corpuscular HGB 31.5 pg (26.0-34.0); Mean Corpuscular HGB Conc 32.6 g/dL (31.5-36.5); Mean Corpuscular Volume 97 fL (80-100); Mean Platelet Volume 11.4 fL (9.1-12.4); NEUTROPHILS ABSOLUTE AUTO 19.34 K/mm3 (1.96-9.15); NEUTROPHILS PERCENT AUTO 84 % (41-73); Platelet Count 222 K/mm3 (150-400); RDW Coefficient Variation 19.9 % (11.7-14.2); RDW Standard Deviation 70.4 fL (35.1-46.3); Red Blood Cell Count 3.87 M/mm3 (3.80-5.20); White Blood Cell Count 22.91 K/mm3 (4.00-11.30)
[2019-09-15 05:14] LABS: Alanine Aminotransfer (ALT/SGP 111 U/L (12-78); Albumin, Blood 1.4 g/dL (3.4-5.0); Albumin/Globulin Ratio 0.4 (0.8-1.8); Alk Phos 231 U/L (50-136); Anion Gap 4 mmol/L (6-16); Aspartate Aminotrans (AST/SGOT 165 U/L (12-37); Bilirubin, Total 8.1 mg/dL (0.1-1.0); Blood Urea Nitrogen 12 mg/dL (8-24); Bun/Creatinine Ratio 21.8 (12.0-20.0); CO2, Blood 30 mmol/L (21-32); Calcium, Blood 8.2 mg/dL (8.5-10.1); Chloride, Blood 103 mmol/L (98-108); Creatinine, Blood 0.55 mg/dL (0.40-1.00); Globulin, Blood 3.4 g/dL (2.2-4.0); Glomerular Filtration Rate >60 (60-); Glucose, Blood 91 mg/dL (70-99); Potassium, Blood 4.4 mmol/L (3.5-5.5); Sodium, Blood 137 mmol/L (136-145); Total Protein, Blood 4.8 g/dL (6.4-8.2)
[2019-09-16 03:53] LABS: BASOPHILS ABSOLUTE AUTO 0.04 K/mm3 (0.00-0.23); BASOPHILS PERCENT AUTO 0 % (0-2); EOSINOPHILS ABSOLUTE AUTO 0.03 K/mm3 (0.00-0.68); EOSINOPHILS PERCENT AUTO 0 % (0-6); Hematocrit 32.1 % (33.0-51.0); Hemoglobin 10.5 g/dL (11.5-16.0); IMMATURE GRAN PERCENT AUTO 1 % (0-1); LYMPHOCYTES PERCENT AUTO 9 % (21-46); MONOCYTES ABSOLUTE AUTO 0.96 K/mm3 (0.16-1.47); MONOCYTES PERCENT AUTO 5 % (4-13); Mean Corpuscular HGB 31.3 pg (26.0-34.0); Mean Corpuscular HGB Conc 32.7 g/dL (31.5-36.5); Mean Corpuscular Volume 96 fL (80-100); Mean Platelet Volume 11.6 fL (9.1-12.4); NEUTROPHILS PERCENT AUTO 85 % (41-73); Platelet Count 183 K/mm3 (150-400); RDW Coefficient Variation 19.8 % (11.7-14.2); RDW Standard Deviation 69.4 fL (35.1-46.3); Red Blood Cell Count 3.35 M/mm3 (3.80-5.20); White Blood Cell Count 19.33 K/mm3 (4.00-11.30)
[2019-09-16 04:18] LABS: Alanine Aminotransfer (ALT/SGP 89 U/L (12-78); Albumin, Blood 1.6 g/dL (3.4-5.0); Albumin/Globulin Ratio 0.6 (0.8-1.8); Alk Phos 194 U/L (50-136); Anion Gap 4 mmol/L (6-16); Aspartate Aminotrans (AST/SGOT 124 U/L (12-37); Bilirubin, Total 6.7 mg/dL (0.1-1.0); Blood Urea Nitrogen 10 mg/dL (8-24); Bun/Creatinine Ratio 19.1 (12.0-20.0); CO2, Blood 30 mmol/L (21-32); Calcium, Blood 7.6 mg/dL (8.5-10.1); Chloride, Blood 104 mmol/L (98-108); Creatinine, Blood 0.52 mg/dL (0.40-1.00); Globulin, Blood 2.9 g/dL (2.2-4.0); Glomerular Filtration Rate >60 (60-); Glucose, Blood 101 mg/dL (70-99); Potassium, Blood 3.8 mmol/L (3.5-5.5); Sodium, Blood 138 mmol/L (136-145); Total Protein, Blood 4.5 g/dL (6.4-8.2)
[2019-09-16] MEDS ORDERED: SPIR25 PO (14:25)
[2019-09-16] MEDS ORDERED: AMOCLA875 PO (14:25)
== END 2019-09-16 17:42 | DRG 871 ==
LOC: ER 17:33 → PCU 23:39 → ICUE 23:39 → ICUW 23:39 → EDBEDREQ 23:52 → EDBEDREQTM 23:52 → EDBEDREQSVC 23:52 → ICUE 23:55 → PCU 09-13 11:56 → MEDS 09-16 10:20 → ENPENDDIS 09-16 13:24 → MEDS 09-16 17:42
PROVIDERS: Emergency Medicine; Internal Medicine; Internal Medicine Critical Care Medicine; Internal Medicine Gastroenterology; Internal Medicine Pulmonary Disease; Nurse Practitioner Acute Care; Physician Assistant; ADMIT Family Medicine
PROC: 05HM33Z Insertion of Infusion Device into Right Internal Jugular Vein, Percutaneous Approach (ICD-10-PCS; principal; 2019-09-10)
PROC: 3E053XZ Introduction of Vasopressor into Peripheral Artery, Percutaneous Approach (ICD-10-PCS; 2019-09-10)
DX: A41.9 Sepsis, unspecified organism (principal); K85.90 Acute pancreatitis without necrosis or infection, unspecified; R65.21 Severe sepsis with septic shock; J69.0 Pneumonitis due to inhalation of food and vomit; N39.0 Urinary tract infection, site not specified; Z20.828 Contact with and (suspected) exposure to other viral communicable diseases; E83.39 Other disorders of phosphorus metabolism; E83.51 Hypocalcemia; K21.9 Gastro-esophageal reflux disease without esophagitis; E87.6 Hypokalemia; N95.0 Postmenopausal bleeding; G89.29 Other chronic pain; F32.9 Major depressive disorder, single episode, unspecified; K52.9 Noninfective gastroenteritis and colitis, unspecified; E80.6 Other disorders of bilirubin metabolism; K70.30 Alcoholic cirrhosis of liver without ascites; Z98.84 Bariatric surgery status; E56.1 Deficiency of vitamin K; K70.11 Alcoholic hepatitis with ascites; K70.40 Alcoholic hepatic failure without coma
CPT/HCPCS: 36415; 71045; 74176; 76830; 76856; 80048; 80053; 80074; 80076; 81001; 82140; 82330; 82390; 83605; 83690; 83735; 83880; 84100; 84132; 84300; 84439; 84443; 85014; 85018; 85025; 85610; 85730; 86038; 86039; 86160; 86225; 86235; 86317; 86704; 86708; 86803; 87040; 87077; 87086; 87186; 87340; 87496; 87798; 93005; 93010; 93306; 93976; 96361; 96374; 97110; 97112; 97116; 97163; 97530; 99285-25; A9270; C1751; C9113; J0610; J0696; J1170; J1650; J1940; J2405; J2543; J2920; J3010; J3430; J3480; J7030; J7050; J7060; J7120; P9045; P9046; P9612; U0002

== ENCOUNTER 2019-10-10 08:59 | Inpatient (IN) | payer OTHER ==
[~2019-10-10] VITALS: Ht 157.5 cm; Wt 128.2 kg
[~2019-10-10 08:59] MED LIST changes: +AMOCLA875 PO; +Citalopram HBr40 MG PO; +FURO40 PO; +ONDA4 PO; -ONDA4ODT MM; +ROXICODONE5 MG PO; +SPIR25 PO
[2019-10-10 10:22] LABS: Alanine Aminotransfer (ALT/SGP 67 U/L (12-78); Albumin, Blood 1.2 g/dL (3.4-5.0); Albumin/Globulin Ratio 0.3 (0.8-1.8); Alk Phos 308 U/L (50-136); Anion Gap 8 mmol/L (6-16); Aspartate Aminotrans (AST/SGOT 139 U/L (12-37); Blood Urea Nitrogen 15 mg/dL (8-24); Bun/Creatinine Ratio 22.2 (12.0-20.0); CO2, Blood 23 mmol/L (21-32); Calcium, Blood 7.6 mg/dL (8.5-10.1); Chloride, Blood 95 mmol/L (98-108); Creatinine, Blood 0.68 mg/dL (0.40-1.00); Globulin, Blood 3.6 g/dL (2.2-4.0); Glomerular Filtration Rate >60 (60-); Glucose, Blood 79 mg/dL (70-99); Potassium, Blood 3.9 mmol/L (3.5-5.5); Sodium, Blood 126 mmol/L (136-145); Total Protein, Blood 4.8 g/dL (6.4-8.2); Troponin I <0.015 ng/mL (0.000-0.040)
[2019-10-10 10:53] LABS: International Normalized Ratio 1.52; Prothrombin Time Results 15.9 Sec (9.7-11.5)
[2019-10-10 12:56] LABS: BASOPHILS ABSOLUTE AUTO 0.09 K/mm3 (0.00-0.23); BASOPHILS PERCENT AUTO 1 % (0-2); EOSINOPHILS ABSOLUTE AUTO 0.19 K/mm3 (0.00-0.68); EOSINOPHILS PERCENT AUTO 1 % (0-6); Hemoglobin 11.1 g/dL (11.5-16.0); IMMATURE GRAN ABSOLUTE AUTO 0.11 K/mm3 (0.00-0.10); IMMATURE GRAN PERCENT AUTO 1 % (0-1); LYMPHOCYTES ABSOLUTE AUTO 3.32 K/mm3 (0.84-5.20); LYMPHOCYTES PERCENT AUTO 19 % (21-46); MONOCYTES ABSOLUTE AUTO 1.23 K/mm3 (0.16-1.47); MONOCYTES PERCENT AUTO 7 % (4-13); Mean Corpuscular HGB Conc 34.7 g/dL (31.5-36.5); Mean Corpuscular Volume 92 fL (80-100); Mean Platelet Volume 10.5 fL (9.1-12.4); NEUTROPHILS ABSOLUTE AUTO 12.88 K/mm3 (1.96-9.15); NEUTROPHILS PERCENT AUTO 72 % (41-73); NRBC ABSOLUTE 0.23 K/mm3 (0.00-0.02); NRBC Auto 1.3 /100 WBC (0.0-0.2); Platelet Count 210 K/mm3 (150-400); RDW Coefficient Variation 17.9 % (11.7-14.2); Red Blood Cell Count 3.47 M/mm3 (3.80-5.20); White Blood Cell Count 17.82 K/mm3 (4.00-11.30)
[2019-10-10] MEDS ORDERED: SUCR1 PO (13:29)
[2019-10-10] MEDS ORDERED: OXYC5 PO (16:33)
--- NOTE | 2019-10-10 18:47 | NUR ---
SHIFT SUMMARY ED ADMIT THIS AFTERNOON. PATIENT SETTLED INTO ROOM. PATIENT VERY EDEMATOUS AND JAUNDICED. PATIENT UP ONE ASSIST W/GAIT BELT AND FWW TO BSC. PATIENT PLEASANT AND ORIENTED BUT SLEEPY AND WEAK. CALL LIGHT IN REACH.
[2019-10-10 20:09] LABS: Source, Urine Voided
[2019-10-10 20:11] LABS: Bilirubin, Urine Neg (Neg); Blood, Urine 1+ (Neg); Glucose Qualitative, Urine Neg (Neg); Ketones, Urine Neg (Neg); Leukocyte Esterase, Urine 2+ (Neg); Nitrite, Urine Neg (Neg); Protein, Urine Neg (Neg); Urobilinogen, Urine NORM (Normal)
[2019-10-10 20:12] LABS: Appearance, Urine Clear (Clear); Color, Urine Yellow (P-Yellow)
[2019-10-10 20:24] LABS: Bacteria Mod /hpf; Red Blood Cells, Urine 0-2 /hpf (0-2); Squamous Epithelial Cells Few /hpf (Few)
[2019-10-10 20:44] LABS: Anion Gap 9 mmol/L (6-16); Blood Urea Nitrogen 14 mg/dL (8-24); CO2, Blood 23 mmol/L (21-32); Calcium, Blood 7.5 mg/dL (8.5-10.1); Chloride, Blood 96 mmol/L (98-108); Glomerular Filtration Rate >60 (60-); Glucose, Blood 75 mg/dL (70-99); Potassium, Blood 3.6 mmol/L (3.5-5.5); Sodium, Blood 128 mmol/L (136-145)
[2019-10-11 05:19] LABS: BASOPHILS ABSOLUTE AUTO 0.07 K/mm3 (0.00-0.23); BASOPHILS PERCENT AUTO 0 % (0-2); EOSINOPHILS ABSOLUTE AUTO 0.37 K/mm3 (0.00-0.68); EOSINOPHILS PERCENT AUTO 2 % (0-6); Hemoglobin 11.6 g/dL (11.5-16.0); IMMATURE GRAN ABSOLUTE AUTO 0.13 K/mm3 (0.00-0.10); IMMATURE GRAN PERCENT AUTO 1 % (0-1); LYMPHOCYTES ABSOLUTE AUTO 5.63 K/mm3 (0.84-5.20); LYMPHOCYTES PERCENT AUTO 31 % (21-46); MONOCYTES ABSOLUTE AUTO 1.11 K/mm3 (0.16-1.47); MONOCYTES PERCENT AUTO 6 % (4-13); Mean Corpuscular HGB 31.4 pg (26.0-34.0); Mean Corpuscular HGB Conc 33.1 g/dL (31.5-36.5); Mean Corpuscular Volume 95 fL (80-100); Mean Platelet Volume 10.7 fL (9.1-12.4); NEUTROPHILS ABSOLUTE AUTO 10.94 K/mm3 (1.96-9.15); NEUTROPHILS PERCENT AUTO 60 % (41-73); NRBC ABSOLUTE 0.02 K/mm3 (0.00-0.02); NRBC Auto 0.1 /100 WBC (0.0-0.2); Platelet Count 196 K/mm3 (150-400); RDW Coefficient Variation 17.7 % (11.7-14.2); RDW Standard Deviation 61.6 fL (35.1-46.3); Red Blood Cell Count 3.69 M/mm3 (3.80-5.20); White Blood Cell Count 18.25 K/mm3 (4.00-11.30)
[2019-10-11 05:46] LABS: Alanine Aminotransfer (ALT/SGP 67 U/L (12-78); Albumin, Blood 1.2 g/dL (3.4-5.0); Albumin/Globulin Ratio 0.3 (0.8-1.8); Alk Phos 305 U/L (50-136); Anion Gap 9 mmol/L (6-16); Aspartate Aminotrans (AST/SGOT 143 U/L (12-37); Bilirubin, Total 5.3 mg/dL (0.1-1.0); Blood Urea Nitrogen 14 mg/dL (8-24); Bun/Creatinine Ratio 19.6 (12.0-20.0); CO2, Blood 23 mmol/L (21-32); Calcium, Blood 7.6 mg/dL (8.5-10.1); Chloride, Blood 96 mmol/L (98-108); Creatinine, Blood 0.71 mg/dL (0.40-1.00); Globulin, Blood 3.9 g/dL (2.2-4.0); Glomerular Filtration Rate >60 (60-); Glucose, Blood 69 mg/dL (70-99); Potassium, Blood 3.4 mmol/L (3.5-5.5); Sodium, Blood 128 mmol/L (136-145); Total Protein, Blood 5.1 g/dL (6.4-8.2)
--- NOTE | 2019-10-11 07:26 | NUR ---
ASSUMED CARE OF PT- REPORT COMPLETED OUTSIDE THE ROOM AT THE REQUEST OF THE PT FAMILY. PER REPORT THE PT IS ON COMFORT CARE, HER SON IS AT THE BEDSIDE AND WILL CALL IF THE PT NEEDS ANYTHING. PT IS AWAKE INTERMITENTLY AND IS ABLE TO TELL STAFF SHE IS READY TO "GO." PER REPORT THE PT SON IS GOOD AT LETTING THE STAFF KNOW IF SHE NEEDS ANYTHING TO KEEP HER COMFORTABLE. PT LAST MEDICATED FOR PAIN AT 0600 AND LAST REPOSITIONED AT 0630 (PER REPORT FROM NIGHT MARIELLA CORDOBA).
--- NOTE | 2019-10-11 07:31 | NUR ---
ASSUMED CARE OF PT- BEDSIDE REPORT COMPLETED WITH NIGHT RN BERYL. PER REPORT PT ADMITTED FOR LIVER FAILURE. PT IS VERY EDEMATOUS AND IS SUPRISED AT HOW WEEK SHE FEELS. SHERRIE ELEVATED 5.0 ON ADMIT THIS AM LABS 5.3. PT HAS AN ELEVATED WBC COUNT THAT ALSO WENT UP WITH HER MORNING LABS. UA SENT TO THE LAB REVEALS A MODERATE AMOUNT OF BACTERIA AWAITING CULTURE RESULTS. UNSURE OF THE ACCURACY OF THE PT BP READINGS D/T EDEMA. PT SLEEPING AT THE TIME OF BEDSIDE REPORT CALL LIGHT IN REACH PT CALLS APPROPRIATELY.
--- NOTE | 2019-10-11 09:51 | NUR ---
CALLED DR VERDE- PT SBP 96 ON MORNING VITALS RECHECK REVEALS SBP 103, OK PER DR TO GIVE BOTHE MEDS
[2019-10-11 12:49] LABS: Anion Gap 11 mmol/L (6-16); Blood Urea Nitrogen 14 mg/dL (8-24); Bun/Creatinine Ratio 20.1 (12.0-20.0); CO2, Blood 23 mmol/L (21-32); Calcium, Blood 7.9 mg/dL (8.5-10.1); Chloride, Blood 95 mmol/L (98-108); Glomerular Filtration Rate >60 (60-); Glucose, Blood 81 mg/dL (70-99); Potassium, Blood 3.3 mmol/L (3.5-5.5); Sodium, Blood 129 mmol/L (136-145)
[2019-10-11 17:43] LABS: Anion Gap 9 mmol/L (6-16); Blood Urea Nitrogen 14 mg/dL (8-24); Bun/Creatinine Ratio 17.6 (12.0-20.0); CO2, Blood 23 mmol/L (21-32); Calcium, Blood 7.8 mg/dL (8.5-10.1); Chloride, Blood 97 mmol/L (98-108); Glomerular Filtration Rate >60 (60-); Glucose, Blood 87 mg/dL (70-99); Potassium, Blood 3.6 mmol/L (3.5-5.5); Sodium, Blood 129 mmol/L (136-145)
--- NOTE | 2019-10-11 18:00 | NUR ---
PT IS ASYMPTOMATIC BUT HYPOTENSIVE ATTEMPTS TO TAKE BP WITH THE BP MACHINE REVEAL SBP IN THE 60'S AND 70'S MANUAL SBP IS 84. PT DENIES FEELING DIZZY LONG SHE IS LAYING FLAT. CALLED DR LAGUNA- REQUESTED PARAMETERS FOR SPIRONOLACTONE AND IV LASIX. PER DR LAGUNA PT SHOULD RECIEVE IV LASIX FOR SBP ABOVE 90. ORDER RECIEVED TO HOLD SPIRONOLACTONE TONIGHT. ENQUIRED ABOUT ALBUMIN FOR THE PT HER LEVEL IS 1.2 WHICH IS LOW, HOWEVER LONG THE PT IS ASYMPTOMATIC, DR WOULD LIKE TO REFRAIN FROM USING IT AT THIS TIME. IF THE PT BECOMES SYMPTOMATIC THEN WE CAN REVISIT THE USE OF ALBUMIN. PT IS ALERT AND ORIENTED, SHE DENIES BEING "LOOPY OR DIZZY" WHILE LAYING FLAT.
--- NOTE | 2019-10-11 18:38 | NUR ---
SHIFT SUMMARY- PT ALERT AND ORIENTED. PT DID AMBULATE TO THE BATHROOM WITH STAFF ONCE TODAY BUT SHE BECAME VERY DIZZY AND PALE. ONCE SHE WAS BACK IN BED HER COLOR RETURNED AND SHE STATED SHE FELT BETTER. PT HAS HAD NO C/O PAIN T/O THE DAY. ONLY MANUAL BP'S SHOULD BE DONE FOR ACCURACY D/T PT EDEMA, WILL PASS ON TO NIGHT RN IN REPORT. SPOKE TO DR TO GET PARAMETERS FOR LASIX THIS EVENING SEE PREVIOUS NOTES FOR DETAILS. PT LAYING IN BED CALL LIGHT IN REACH NO S&S OF DISTRESS NOTED. PT HAS A LIMIT ON FREE WATER SHE HAS HAD VERY MINIMAL INPUT OF PO FLUID.
[2019-10-11 23:22] LABS: Anion Gap 6 mmol/L (6-16); Blood Urea Nitrogen 14 mg/dL (8-24); Bun/Creatinine Ratio 17.1 (12.0-20.0); CO2, Blood 27 mmol/L (21-32); Calcium, Blood 7.7 mg/dL (8.5-10.1); Chloride, Blood 96 mmol/L (98-108); Creatinine, Blood 0.82 mg/dL (0.40-1.00); Glomerular Filtration Rate >60 (60-); Glucose, Blood 101 mg/dL (70-99); Potassium, Blood 3.6 mmol/L (3.5-5.5); Sodium, Blood 129 mmol/L (136-145)
[2019-10-12 05:48] LABS: Anion Gap 7 mmol/L (6-16); Blood Urea Nitrogen 14 mg/dL (8-24); Bun/Creatinine Ratio 15.7 (12.0-20.0); CO2, Blood 27 mmol/L (21-32); Calcium, Blood 7.7 mg/dL (8.5-10.1); Chloride, Blood 97 mmol/L (98-108); Creatinine, Blood 0.89 mg/dL (0.40-1.00); Glomerular Filtration Rate >60 (60-); Glucose, Blood 86 mg/dL (70-99); Potassium, Blood 3.5 mmol/L (3.5-5.5); Sodium, Blood 131 mmol/L (136-145)
--- NOTE | 2019-10-12 06:26 | NUR ---
SHIFT SUMMARY PT HAS HAD NO ACUTE CHANGES THIS SHIFT, BP'S REMAIN LOW, ASYMPTOMATIC, 500ML FLUID BOLUS ADMIN THIS SHIFT, REPEAT BP REPORTED TO MD, PT HAS BEEN COMPLIANT W/FREE WATER RESTRICTION, SLEPT T/O THE NIGHT, SLEEPING AT THIS TIME, CALL LIGHT IN REACH, BED ALARM ACTIVE, WILL CONT TO MONITOR UNTIL REPORT GIVEN TO DAY RN.
--- NOTE | 2019-10-12 14:45 | NUR ---
INITIAL [facility] VISIT - Case conferenced with special duty nurse, nurse, PT prior to visit and Dom, MONSERRAT after my visit. EMR reviewed. I introduced myself to pt and her sister at the bedside. They are waiting to speak with drs further about dc planning to home concerns and have already spoken with CM. They thought I might me a state worker to help them apply for medicaid as recommended to fund caregivers. I restated my purpose here and had her sister pull out the papers CM had given her with the APD number highlighted. I reinforced that they should call APD today and request a screener & start of services application today. I gently explored the possibilty of completing an AD and pt confirms that she is not always able to think clearly, feels "fuzzy" and overwhelmed frequently. Her drs were waiting to come back in as requested so I excused myself and will return as planned with pt and sister at 3:30 today to finish conversation on advanced care planning, code status and surrogacy. Report to outside room, RN and CM after my visit.
--- NOTE | 2019-10-12 16:25 | NUR ---
Second [facility] Care visit with pt and sister, Lilly, after they had had the opportunity to meet with Marina's Drs again. We discussed in depth, advanced care planning, advocacy, medical decision making, code status options, identifying a proxy/surrogate decision maker, completing an advanced directive, POLST and a power of patent attorney so her sister can advocate and complete applications for her with APD, social security, disability benefits, etc. Pt and Lilly appreciative of all the info staff have provided today. They feel like they need to review, process and discuss further. They have copies of AD/POLST, Durable POA and booklet "Hard Choices for [place] People". They are revisiting pt's wishes in regard to code status. Pt is clear that she does not want CPR/intubation if she no longer has current brain function or she is bed bound. She believes she started an AD but none found on file in EMR/chart. When I arrived Staff Research Scientist was finishing visit. Staff Research Scientist to revisit tomorrow and assist with completion of documents if pt/sister ready and if they are not I will check in with them on . Pt had reported pain, RUQ and R to mid abd pain, 8/10. RN called Dr for analgesic RX and obtained VO for pain medication. Pt reports she will experience nausea with eating. Educated on preventative reporting of start of pain and nausea before she experiences 8/10 symptoms. Pt is scheduled for an abdominal ultrasound this evening. Plan for Palliative care to follow with CM and oil distributor tender for support and assist with advanced care planning and s/s management.
--- NOTE | 2019-10-12 17:46 | NUR ---
Initial spiritual care note: Marina was open to companionship and conversation. Her sister was present at bedside, having just arrived from [facility]. Sister left room to allow Marina and I to speak. Marina expressed frustration with lack of progress. She is convinced if she "could just stand up on my own, I would be ok." She does not appear to understand her disease process/prognosis. She tells me she is "tired all the time" and can no manage on her own at home. She lives with her BF "but that might be changing." It appeared to do her good to be heard and understood. She did not speak to me about her drinking. This visit was about building rapport, and I will continue to see Marina as case-load permits. Family appears to be a good support.
--- NOTE | 2019-10-12 18:22 | NUR ---
SHIFT SUMMARY. A&OX4, ONE ASSIT TO BATHROOM. PT IS PLEASANT AND COOPERATIVE WITH CARE. PT RECIEVED SHOWER TODAY WITH ASSITANCE OF DISABILITY AIDE. PT PARTICIPATED WITH PT/OT. PT DENIED SOB. PT REPORTED MID ABD PAIN THIS AFTERNOON, OBTAINED ORDER FOR OXYCODONE, PT REPORTED GOOD RELIEF. PT REPORTED THAT PAIN MEDICATIONS OFTEN CAUSES NUASEA, PRN PO ZOFRAN GIVEN WITH OXYCODONE. NO NAUSEA REPORTED. PALLIATIVE, SPIRITUAL, CM, AND MD'S IN TO VISIT PT AND DAUGHTER THROUGHOUT THE SHIFT FOR ADVANCED CARE PLANNING AND SUPPORT. PT TO HAVE ABD US THIS EVENING PRIOR TO EATING DINNER. NO OTHER CHANGES OR CONCERNS.
--- NOTE | 2019-10-12 21:48 | NUR ---
ASSUMED CARE. AOX3. VERY JAUDICE ALL OVER. REPORTS PAIN IN LEFT SIDE OF ABDOMIN. STATES PAIN IS 2/10. NO NAUSEA AT THIS TIME. BLE +3-4 EDEMA UP TO THIGHS. ENCOURAGED HER TO GET UP AND MOVE AROUND MORE EVEN IN BED. SHE STATES SHE NEEDS HELP, EVEN ASKED TO HELP MOVE HER LEGS. ENCOURAGED HER TO TRY TO DO MORE FOR HERSELF. DISCUSSED WEAKNESS AND BEING IN BED. LUNG SOUNDS DIMINISHED. SINUS HR. REDNESS IN GROIN AND BUTTOCKS. MEDS GIVEN. NO NEEDS NOTED AT THIS TIME. WILL CONTINUE TO MONITOR. CALL LIGHT IN REACH.
[2019-10-13 05:37] LABS: Alanine Aminotransfer (ALT/SGP 65 U/L (12-78); Albumin, Blood 1.3 g/dL (3.4-5.0); Albumin/Globulin Ratio 0.4 (0.8-1.8); Alk Phos 302 U/L (50-136); Anion Gap 7 mmol/L (6-16); Aspartate Aminotrans (AST/SGOT 131 U/L (12-37); Bilirubin, Total 5.1 mg/dL (0.1-1.0); Blood Urea Nitrogen 14 mg/dL (8-24); Bun/Creatinine Ratio 16.2 (12.0-20.0); CO2, Blood 26 mmol/L (21-32); Calcium, Blood 7.6 mg/dL (8.5-10.1); Chloride, Blood 97 mmol/L (98-108); Creatinine, Blood 0.86 mg/dL (0.40-1.00); Globulin, Blood 3.4 g/dL (2.2-4.0); Glomerular Filtration Rate >60 (60-); Glucose, Blood 86 mg/dL (70-99); Potassium, Blood 3.3 mmol/L (3.5-5.5); Sodium, Blood 130 mmol/L (136-145); Total Protein, Blood 4.7 g/dL (6.4-8.2)
--- NOTE | 2019-10-13 06:19 | NUR ---
SHIFT SUMMARY: JERALD BP IS HYPOTENSIVE RUNNING IN THE 90'S. REST WNL. PAIN AVERAGED 2/10 THIS SHIFT, UPPER LEFT ABDOMIN. NO NAUSEA. ABDOMIN TENDER AT TIMES. JAUDICE. +3 PITTING EDEMA BLE. YEAST RASH AND DISCHARGE NOTED. NEEDS ORDER FOR DIFLUCAN AND NYSTATIN POWDER. WILL ASK DAY SHIFT. VERY WEAK WITH DECREASED MOBILITY. ENCOURAGED TO PROVIDE SELF CARE. FLAT EFFECT WITH SLIGHT FAILURE TO THRIVE. LABS THIS AM: NA 130; K+ 3.3; [id number] 5.1; AST 131, ALBUMIN 1.3. INTAKE 620 WITH ONLY 200 OUTPUT. SLEPT WELL MOST OF SHIFT, CALL LIGHT REMAINED IN REACH AND USED APPROPRIATLY.
[2019-10-13] MEDS ORDERED: TORSE20 PO (12:25)
[2019-10-13] MEDS ORDERED: MIDO5 PO (12:25)
[2019-10-13] MEDS ORDERED: NYSTOP15 GM TOP (12:26)
--- NOTE | 2019-10-13 15:13 | NUR ---
PT TRANSFER REPORT CALLED TO [facility], DR. LAGUNA REPORTED THAT THE PTS BP WAS NOTED AND THAT DUE TO HER LIVER CIRROSIS IT MAY REMAIN LOW, THE PT WAS STARTED ON MIDODRINE TO HELP ELEVATE HER BP. PTS FAMILY IS AT THE BEDSIDE AT THIS TIME, THE PT WILL TRANSFER VIA WHEELCHAIR AT 1600,
--- NOTE | 2019-10-13 17:35 | NUR ---
PT TRANSFERED VIA WHEELCHAIR TO [facility] AT 1610, PT WAS A/OX3 APPEARED TO BE BREATHING EASILY AT THE TIME OF DC, PT WAS WEEK ON HER FEET DURING TRANSFER TO WHEELCHAIR, PTS PRESCRIPTION HELD BY THE PHARMACY WERE GIVEN TO THE TRANSPORT ESCORT TO GIVE TO THE RN
== END 2019-10-13 16:10 | DRG 433 ==
LOC: ER 08:59 → MEDS 09:00
PROVIDERS: Emergency Medicine; Family Medicine; ADMIT Hospitalist
DX: K70.10 Alcoholic hepatitis without ascites (principal); E87.1 Hypo-osmolality and hyponatremia; K21.9 Gastro-esophageal reflux disease without esophagitis; F41.8 Other specified anxiety disorders; G89.29 Other chronic pain; E88.09 Other disorders of plasma-protein metabolism, not elsewhere classified; I95.2 Hypotension due to drugs; T50.1X5A Adverse effect of loop [high-ceiling] diuretics, initial encounter; Y92.230 Patient room in hospital as the place of occurrence of the external cause; K76.0 Fatty (change of) liver, not elsewhere classified; K72.90 Hepatic failure, unspecified without coma
CPT/HCPCS: 36415; 71045; 76700; 80048; 80053; 81001; 82140; 83605; 83690; 83880; 84484; 85025; 85610; 85730; 86850; 86900; 86901; 87086; 93005; 93010; 94762; 96360; 96361; 97110; 97116; 97162; 97166; 97535; 99285-25; J1650; J1940; J7030; U0002

== ENCOUNTER 2019-11-01 15:51 | Inpatient (IN) | payer OTHER ==
[~2019-11-01] VITALS: Ht 170.2 cm; Wt 97.5 kg
[~2019-11-01 15:51] MED LIST changes: +MIDO5 PO; +NYSTOP15 GM TOP; +OXYC5 PO; +SUCR1 PO; +TORSE20 PO
[2019-11-01 17:08] LABS: BASOPHILS ABSOLUTE AUTO 0.08 K/mm3 (0.00-0.23); BASOPHILS PERCENT AUTO 0 % (0-2); EOSINOPHILS ABSOLUTE AUTO 0.13 K/mm3 (0.00-0.68); EOSINOPHILS PERCENT AUTO 0 % (0-6); Hematocrit 30.5 % (33.0-51.0); Hemoglobin 10.7 g/dL (11.5-16.0); IMMATURE GRAN ABSOLUTE AUTO 0.48 K/mm3 (0.00-0.10); IMMATURE GRAN PERCENT AUTO 2 % (0-1); LYMPHOCYTES ABSOLUTE AUTO 4.81 K/mm3 (0.84-5.20); LYMPHOCYTES PERCENT AUTO 16 % (21-46); MONOCYTES ABSOLUTE AUTO 1.74 K/mm3 (0.16-1.47); MONOCYTES PERCENT AUTO 6 % (4-13); Mean Corpuscular HGB 31.4 pg (26.0-34.0); Mean Corpuscular HGB Conc 35.1 g/dL (31.5-36.5); Mean Corpuscular Volume 89 fL (80-100); Mean Platelet Volume 11.1 fL (9.1-12.4); NEUTROPHILS ABSOLUTE AUTO 23.04 K/mm3 (1.96-9.15); NEUTROPHILS PERCENT AUTO 76 % (41-73); NRBC ABSOLUTE 0.13 K/mm3 (0.00-0.02); NRBC Auto 0.4 /100 WBC (0.0-0.2); Platelet Count 107 K/mm3 (150-400); RDW Coefficient Variation 17.8 % (11.7-14.2); RDW Standard Deviation 57.1 fL (35.1-46.3); Red Blood Cell Count 3.41 M/mm3 (3.80-5.20); White Blood Cell Count 30.28 K/mm3 (4.00-11.30)
[2019-11-01 18:18] LABS: Free Thyroxine 1.36 ng/dL (0.70-1.60); Magnesium, Blood 2.4 mg/dL (1.6-2.4)
[2019-11-01 18:24] LABS: Thyroid Stimulating Hormone 1.31 uIU/mL (0.360-4.800)
[2019-11-01] MEDS ORDERED: MIRALAX17 GM PO (18:27)
[2019-11-01] MEDS ORDERED: LACT10SY PO (18:28)
[2019-11-01 18:54] LABS: Alanine Aminotransfer (ALT/SGP 63 U/L (12-78); Albumin, Blood 1.3 g/dL (3.4-5.0); Albumin/Globulin Ratio 0.3 (0.8-1.8); Alk Phos 293 U/L (50-136); Anion Gap 12 mmol/L (6-16); Aspartate Aminotrans (AST/SGOT 127 U/L (12-37); Blood Urea Nitrogen 30 mg/dL (8-24); Bun/Creatinine Ratio 19.5 (12.0-20.0); CO2, Blood 22 mmol/L (21-32); Calcium, Blood 8.7 mg/dL (8.5-10.1); Chloride, Blood 98 mmol/L (98-108); Creatinine, Blood 1.54 mg/dL (0.40-1.00); Globulin, Blood 3.9 g/dL (2.2-4.0); Glomerular Filtration Rate 37 (60-); Glucose, Blood 97 mg/dL (70-99); Potassium, Blood 3.6 mmol/L (3.5-5.5); Sodium, Blood 132 mmol/L (136-145); Total Protein, Blood 5.2 g/dL (6.4-8.2); Troponin I <0.015 ng/mL (0.000-0.040)
[2019-11-01 19:49] LABS: Source, Urine Catheter
[2019-11-01 19:51] LABS: Blood, Urine 5+ (Neg); Glucose Qualitative, Urine Neg (Neg); Ketones, Urine 2+ (Neg); Leukocyte Esterase, Urine 3+ (Neg); Nitrite, Urine Neg (Neg); Protein, Urine 2+ (Neg); Specific Gravity, Urine 1.025 (1.003-1.022); Urobilinogen, Urine 3+ (Normal)
[2019-11-01 19:57] LABS: Bilirubin, Urine 3+ (Neg)
[2019-11-01 19:58] LABS: Appearance, Urine Cloudy (Clear); Color, Urine Yellow (P-Yellow); Red Blood Cells, Urine TNTC /hpf (0-2); White Blood Cells, Urine TNTC /hpf (0-5)
[2019-11-01 19:59] LABS: Bacteria Many /hpf; Squamous Epithelial Cells Few /hpf (Few)
[2019-11-01 20:00] LABS: Yeast/Fungi Urine Mod /hpf
[2019-11-01] MEDS ORDERED: B-1100 M1 PO (20:25)
[2019-11-01] MEDS ORDERED: FUROSEMIDE40 MG PO (20:25)
--- NOTE | 2019-11-01 22:35 | NUR ---
RECEIVED ED ADMIT VIA GUERNEY AT 2235. AWAKE / LETHARGIC . ORIENTED TO SELF AND SLOW TO ANSWER IN A WHISPER. VERY PALE JAUNDICE. TACHEPNEA AND PANTING GRUNTING BREATHS OF 24-28. ST AT 108 . VERY DIFFICULT TO RECEIVE A SAT READ W/ VERY LOW BP. EAR PROBE HELPS AND VERY COOL MOTTLED EXTREMITIES. UNABLE TO GET MAP > THAN 60 . RA AND SAT 93%. LUNGS VERY DISTANT/DIMINISHED BUT NO CRACKLES AUSCULTATED. SEVERE ANASARCA. PINK/WEAVER LIQUID RELEASED RECTALLY. LAZAR WINE COLORED URINE,.VERY SCANT AMT. PLACED CALL TO DR DAMON AT 2310 AND INSTRUCTED TO CALL DR GRIFFIN. BOLUS OF NS TO FINISH OUT LITER / 800ML. DR GRIFFIN TO ROOM AT 2320 AND VERBAL TO TX TO ICU . REPORT GIVEN TO ERIC WOLFF IN ICU 6. PLACED CALL TO CONTACT PERSONS FROM [facility]. SPOKE WITH DENNY/ MOM..HOA/S.O. AND NAMCY/SISTER. REVIEWED UPDATE AND DECLINING CONDITION. AND LISTED FULL CODE, AND MD W/ PT AT THIS TIME.
--- NOTE | 2019-11-01 23:30 | NUR ---
PT ARRIVED TO ICU 6 VIA BED, TX c SLIDER SHEET. PLACED ON ICU MONITORING. DR. GRIFFIN TO RM 6, CENTRAL LINE PLACEMENT DUE TO SEVERE HYPOTENSION. NS BOLUS INFUSING. PT ANSWERING SIMPLE QUESTIONS, CONTINUES c GRUNTING RESPIRATIONS. SEE ADMIT ASSESSMENT.
[2019-11-02 00:30] LABS: International Normalized Ratio 2.07; Prothrombin Time Results 21.3 Sec (9.7-11.5)
--- NOTE | 2019-11-02 03:13 | NUR ---
PT ALERT, ANSWERING SIMPLE QUESTIONS. ATTEMPTING TO ASSIST c REPOSITIONING IN BED. GENERALIZED 4+ EDEMA. INCONTINENT OF LIQUID BROWN STOOL. BUTTOCKS AND EMANI AREA RED AND BLEEDING, SEE PHOTO IN CHART. HYPOTENSION CONTINUES, LEVOPHED GTT VIA CENTRAL LINE @ 10MCG c GOAL OF MAP >60. 2LPM O2 VIA NC DUE TO GRUNTING RESPIRATIONS AND DIFFICULTY OBTAINING ACCURATE BIOX.
[2019-11-02 03:44] LABS: BASOPHILS ABSOLUTE AUTO 0.06 K/mm3 (0.00-0.23); BASOPHILS PERCENT AUTO 0 % (0-2); Hematocrit 25.4 % (33.0-51.0); Hemoglobin 8.9 g/dL (11.5-16.0); LYMPHOCYTES ABSOLUTE AUTO 2.73 K/mm3 (0.84-5.20); LYMPHOCYTES PERCENT AUTO 10 % (21-46); MONOCYTES PERCENT AUTO 7 % (4-13); Mean Corpuscular HGB 31.2 pg (26.0-34.0); Mean Corpuscular Volume 89 fL (80-100); Mean Platelet Volume 11.6 fL (9.1-12.4); NRBC ABSOLUTE 0.06 K/mm3 (0.00-0.02); NRBC Auto 0.2 /100 WBC (0.0-0.2); Platelet Count 156 K/mm3 (150-400); RDW Coefficient Variation 17.8 % (11.7-14.2); RDW Standard Deviation 57.1 fL (35.1-46.3); Red Blood Cell Count 2.85 M/mm3 (3.80-5.20); White Blood Cell Count 27.59 K/mm3 (4.00-11.30)
[2019-11-02 03:45] LABS: EOSINOPHILS ABSOLUTE AUTO 0.02 K/mm3 (0.00-0.68); EOSINOPHILS PERCENT AUTO 0 % (0-6); IMMATURE GRAN ABSOLUTE AUTO 0.49 K/mm3 (0.00-0.10); IMMATURE GRAN PERCENT AUTO 2 % (0-1); NEUTROPHILS ABSOLUTE AUTO 22.29 K/mm3 (1.96-9.15); NEUTROPHILS PERCENT AUTO 81 % (41-73)
[2019-11-02] MEDS ORDERED: ROXICODONE5 MG PO (03:46)
[2019-11-02] MEDS ORDERED: SIME80CH PO (03:48)
[2019-11-02] MEDS ORDERED: ONDA4 PO (03:49)
[2019-11-02 04:01] LABS: Albumin, Blood 1.9 g/dL (3.4-5.0); Albumin/Globulin Ratio 0.6 (0.8-1.8); Bilirubin, Total 4.9 mg/dL (0.1-1.0); Bun/Creatinine Ratio 18.9 (12.0-20.0); Calcium, Blood 8.4 mg/dL (8.5-10.1); Creatinine, Blood 1.59 mg/dL (0.40-1.00); Globulin, Blood 3.2 g/dL (2.2-4.0); Potassium, Blood 3.3 mmol/L (3.5-5.5); Total Protein, Blood 5.1 g/dL (6.4-8.2)
[2019-11-02 04:11] LABS: BASOPHILS PERCENT MAN 0 % (0-2); EOSINOPHILS PERCENT MAN 0 % (0-6); LYMPHOCYTES ABSOLUTE MAN 3.31 K/mm3 (0.84-5.20); LYMPHOCYTES PERCENT MAN 12 % (21-46); MONOCYTES ABSOLUTE MAN 0.27 K/mm3 (0.16-1.47); MONOCYTES PERCENT MAN 1 % (4-13); SEG NEUTROPHILS PERCENT MAN 87 % (41-73); TOTAL CELLS COUNTED 100
--- NOTE | 2019-11-02 07:33 | NUR ---
SHIFT SUMMARY PT REMAINS ALERT BUT INTERMITTENTLY CONFUSED. HAD MULTIPLE LOOSE STOOLS THROUGHOUT THE MORNING, ASSISTED DAY RN'S c RECTAL TUBE PLACEMENT. LEVOPHED TITRATED UP TO 25MCG WITH MINIMAL EFFECT ON THE HYPOTENSION. DR. GRIFFIN NOTIFIED: VASOPRESSIN, FLUID BOLUS, AND NS INFUSION ORDERED. PT RESPONDED WELL TO THE NEW ORDERS. REPORT GIVEN TO FREDO.
[2019-11-02 10:29] LABS: International Normalized Ratio 2.32; Prothrombin Time Results 23.7 Sec (9.7-11.5)
--- NOTE | 2019-11-02 10:54 | NUR ---
CARE ASSUMED 0700 PT ALERT AND ABLE TO RESPOND TO SIMPLE QUESTIONS. PALE AND EDEAMTOUS ALL OVER , WITH PITTING 4+ EDEMA IN LOWER EXTREMS. LEVOPHED AT 25 MCG/MIN, VASOPRESSIN 0.04 UNITS/MIN, AND MAINTAINS FLUID 125 ML/HR ALL INFUSING IN CENTRAL LINE. MAP >60, 2 L NC WITH SPO2 92-94%, SINUS TACH 110'S, AND RR 30-50'S. LEFT AC [address] MARTIN IN TO SEE PT AND WOULD LIKE TO HAVE PARACENTESIS DONE TODAY. DR. VALADEZ ALSO IN TO SEE PT AND WOULD LIKE MAINTAINENCE FLUIDS STOPPED AND WOULD LIKE TO HAVE PARACENTESIS SOON POSSIBLE. SPOKE TO ULTRASOUND TEAM AND THEY REQUIRE INR < 2 BEFORE STARTING PARACENTESIS AT 1400. RECTAL TUBE PLACED AT 0745. BUTTOCK AND EMANI AREA RED AND BLEEDING NOTED IN RECTAL AREA DURING TUBE PLACEMENT. INCONTINENT OF LIQUID BROWN STOOL. PT TOLERATED WELL. LULU AND I SPOKE TO PTS MOTHER AND TO GIVE AN UPDATE ON PT STATUS. ALL QUESTIONS ANSWERED.
--- NOTE | 2019-11-02 12:15 | NUR ---
DR VALADEZ AT BEDSIDE. AWARE OF INR 2.3. BILATERAL GREAT TOES AND DISTAL FOOT PURPLISH COLOR, CAP REFILL LESS THAN 3 SECONDS. LEVOPHED DECREASED TO 23 MCG/MIN
--- NOTE | 2019-11-02 13:45 | NUR ---
UPDATE PTS BILATERAL LOWER DIGITS HAVE BLUISH/PURPLE DISCOLORATION. LEVOPHED DECREASED TO 19, MAP >60. PT COMPLAINS OF ABD PAIN (10/10) AND UNABLE TO STATE IF IT IS CHRONIC OR ACUTE. DR. VALADEZ CONTACTED AND NEW ORDER FOR FENTANYL RECEIVED. WAITING FOR PARACENTESIS UNTIL INR < 2, PROVIDER AWARE. PTS MOTHER IN ROOM, ALL QUESTIONS ANSWERED.
--- NOTE | 2019-11-02 14:30 | NUR ---
DR. VALADEZ HERE-UPDATED. DECREASING LEVOPHED . PT C/O ABDOMINAL PAIN-RX WITH FENTANYL. PLANS FOR K REPLACEMENT.
--- NOTE | 2019-11-02 14:47 | NUR ---
Marina was slow to respond, and had difficulty saying more than two or three words without losing track of what she was saying. I provided asurance of care and attention. We prayed together for healing. She appeared to be sleeping when I left. I will remain available.
--- NOTE | 2019-11-02 18:57 | NUR ---
PT CURRENTLY ON LEVOPHED @ 19 MCG'S AND VASOPRESSIN 0.04 UNITS/MIN, MAPS > 60 THROUGHOUT SHIFT. LAZAR CATH AND RECTAL TUBE IN PLACE. DR. VALADEZ IN TO SEE PT AND REVIEWED LASIX DOSE ALONG WITH CONTINUING HEPARIN DOSE TONIGHT. UPDATED WITH URINE OUT, NO MAINTAIN FLUID. PT IS MORE AWAKE AND ABLE TO ANSWER FEW QUESTIONS WITH 1-2 WORD ANSWERS.
--- NOTE | 2019-11-02 21:13 | NUR ---
PATIENT AWAKE SLOWLY ANSWERING QUESTIONS APPROPRIATELY YET CONTINUES TO HAVE OCCASIONAL CONFUSED CONVERSATION. VERY WEAK ATTEMPTING TO ASSIST WITH REPOSITIONING. JAUNDICE SKIN AND SCLERA, GENERALIZED 4+ PITTING EDEMA CONTINUES. HYPOTENSION WITH VASOPRESSIN AND LEVOPHED INFUSING VIA RIGHT IJ CENTRAL LINE. RECTAL TUBE IN PLACE DUE TO BEING INCONT OF LIQUID BROWN STOOL, RECEIVING LACTULOSE DUE TO LIVER FAILURE. LAZAR DRAINING RAJNI/ORANGE URINE. PRIAREA RED WITH SOME BLEEDING WITH EMANI CARE, APPEARS LESS RED THAN EARLIER THIS MORNING. HOA PATIENTS S/O GIVEN UP DATE, FAMILY FROM OUT OF TOWN WILL BE COMING IN TO [place] ON FRIDAY.
[2019-11-03 04:08] LABS: Hematocrit 26.1 % (33.0-51.0); Hemoglobin 9.1 g/dL (11.5-16.0); Mean Corpuscular HGB 31.3 pg (26.0-34.0); Mean Corpuscular HGB Conc 34.9 g/dL (31.5-36.5); Mean Corpuscular Volume 90 fL (80-100); Mean Platelet Volume 11.3 fL (9.1-12.4); NRBC ABSOLUTE 0.14 K/mm3 (0.00-0.02); NRBC Auto 0.4 /100 WBC (0.0-0.2); Platelet Count 151 K/mm3 (150-400); RDW Coefficient Variation 17.9 % (11.7-14.2); RDW Standard Deviation 57.6 fL (35.1-46.3); Red Blood Cell Count 2.91 M/mm3 (3.80-5.20); White Blood Cell Count 39.02 K/mm3 (4.00-11.30)
[2019-11-03 04:23] LABS: International Normalized Ratio 2.47; Prothrombin Time Results 25.1 Sec (9.7-11.5)
[2019-11-03 04:28] LABS: Albumin, Blood 1.7 g/dL (3.4-5.0); Albumin/Globulin Ratio 0.5 (0.8-1.8); Bilirubin, Total 5.3 mg/dL (0.1-1.0); Calcium, Blood 8.2 mg/dL (8.5-10.1); Creatinine, Blood 1.4 mg/dL (0.40-1.00); Globulin, Blood 3.5 g/dL (2.2-4.0); Potassium, Blood 3.1 mmol/L (3.5-5.5); Total Protein, Blood 5.2 g/dL (6.4-8.2)
[2019-11-03 05:14] LABS: Magnesium, Blood 2.2 mg/dL (1.6-2.4); Phosphorus, Blood 3.4 mg/dL (2.5-4.9)
--- NOTE | 2019-11-03 06:30 | NUR ---
SUMMARY PATIENT AWAKE TO SLIGHT STIMULI, SLOW TO ANSWER QUESTIONS, ANSWERING APPROPRIATELY, YET NEEDING FREQUENT REMINDERS T/O NIGHT TO NOT PULL AT LINES AND TO KEEP NC IN PLACE. ATTEMPTS TO ASSIST WITH REPOSITION GENERALIZED WEAKNESS WITH GENERALIZED 4+ EDEMA MAKING IT DIFFICULT FOR HER. MEDICATED ONCE FOR C/O BACK PAIN. FLEXI-SEAL RECTAL TUBE IN PLACE DRAINING LIQUID BROWN STOOL. LEVOPHED AND VASOPRESSIN INFUSING FOR HYPOTENSION. PERIAREA CONTINUES TO BE RED AND RAW.
--- NOTE | 2019-11-03 07:45 | NUR ---
PT AWAKE, ANSWERING QUESTIONS APPROPRIATELY, SLOW TO SPEECH BUT NOT SLURRED. O2 N/C @ 4 LPM, PT SOB ON EXERTION, LUNGS CLEAR DIMINISHED TO BASES. PT. ABLE TO TAKE SMALL SIPS OF WATER, NO SWALOWING DIFFICULTY, CENTRAL LINE INTACT INFUSING LEVOPHED, VASOPRESSIN, POTASSIUM. PT STATES PAIN TO ABD, STATES SHE FEELS BETTER UPON REPOSITIONING. 4+ ANASARCA NOTED. ALL EXTREMETIES ELEVATED ON PILLOWS.
--- NOTE | 2019-11-03 09:35 | NUR ---
SPOKE WITH PT'S MOTHER ABOUT STATUS. PT. SPOKE WITH HER ON THE PHONE.
--- NOTE | 2019-11-03 10:30 | NUR ---
SPOKE WITH PT'S ANITA CAMARA. UPDATED ON STATUS. PT. SPOKE WITH HIM ON THE PHONE.
--- NOTE | 2019-11-03 12:20 | NUR ---
PT REFUSING TURNING AND HAVING PILLOW FOR REPOSITION. EXPLAINED TO PT IMPORTANCE OF REPOSITIONING TO PREVENT FURTHER INJURY. PT. STATES UNDERSTANDING REQUIRING FREQUENT REMOINDERS.
--- NOTE | 2019-11-03 17:42 | NUR ---
PT ALERT TODAY, SPEAKING LESS SLOWED, HAS SOME VISUAL AND AUDITORY HALLUCINATIONS, SAYS SHE SEE HER FAMIILY IN THE ROOM. LUNG SOUNDS REMAIN CLEAR AND DIMINISHED IN BASES. PT TAKING SMALL SIPS OF WATER, NO SWALLOWING DIFFICULTY NOTED. CENTRAL LINE INFUSING WELL, NO S/S OF INFECTION. U/S GUIDED PARACENTESIS CANCELLED TODAY. LAZAR DRAINING CLEAR YELLOW URINE. PT. EDEMETOUS WITH ANASARCA. FLEXISEAL DRAINING BROWN LIQUID STOOL. AT REPOSITIONING, PT FREQUENTLY REQUESTS TO LAY ON HER BACK. EDUCATION AND MULTIPLE REMINDERS TO PT FOR NEED FOR REPOSITIONING SIDE TO SIDE.
--- NOTE | 2019-11-03 21:26 | NUR ---
CARE ASSUMED CARE AND REPORT ASSUMED FROM TAYLOR WOLFF. PT CONFUSED AND HALLUCINATING, ASKING FOR THINGS THAT ARE NOT IN THE ROOM. PT IS SLOW TO RESPOND VERBALLY. VERY WEAK IN ALL EXTREMITIES AND LIMITED ROM DUE TO WEAKNESS. BILAT LEGS ARE LARGELY EDEMATOUS WITH 4+ PITTING EDEMA. PEDAL PULSES DOPPLERED. NSR, HR 90S. LEVOPHED GTT INFUSING AT 15 MCG, VASOPRESSIN INFUSING AT 0.04. LUNG SOUNDS CLEAR TO DIMINISHED, SPO2 96% ON 4L NC. TOLERATING FEW SIPS OF WATER. CALL LIGHT WITHIN REACH. SKIN AND SCLERA IS JAUNDICED. RECTAL TUBE AND LAZAR CATHETER SECURED AND PATENT. WILL CONTINUE TO MONITOR.
--- NOTE | 2019-11-03 23:37 | NUR ---
REASSESSMENT PT ATTEMPTING TO SLEEP. REQUESTING TO LAY FLAT, BUT ENCOURAGING PT TO TRY AND TOLERATE THE SIDE TURNS WITH PILLOWS. REMAINS IN NSR, HR 80S. LEVOPHED GTT INFUSING AT 12 MCG, VASO PRESSIN CONTINUES TO INFUSE. ANBX INFUSING. PT TOLERATED TAKING PO LACTULOSE. FOLLOWING COMMANDS APPROPRIATELY. REMAINS ON 4L NC. WILL CONTINUE TO MONITOR.
[2019-11-04 03:26] LABS: Hematocrit 26.3 % (33.0-51.0); Hemoglobin 9.2 g/dL (11.5-16.0); Mean Corpuscular HGB 31.1 pg (26.0-34.0); Mean Corpuscular Volume 89 fL (80-100); Mean Platelet Volume 11.4 fL (9.1-12.4); NRBC Auto 0.3 /100 WBC (0.0-0.2); Platelet Count 114 K/mm3 (150-400); RDW Standard Deviation 57.5 fL (35.1-46.3); Red Blood Cell Count 2.96 M/mm3 (3.80-5.20); White Blood Cell Count 33.86 K/mm3 (4.00-11.30)
--- NOTE | 2019-11-04 03:35 | NUR ---
REASSESSMENT PT AWAKE AND ALERT IN BED. HAVING VISUAL HALLUCINATIONS AT THIS TIME. ENCOURAGING PT TO TURN IN BED. PT REFUSES TO PARTICIPATE IN CARE AND TURNS. REMAINS IN NSR, HR 80S. SP02 95% ON 4L NC. LEVOPHED GTT INFUSING AT 10 MCG AND VASOPRESSIN INFUSING AT 0.04. FLEXISEAL AND LAZAR CATH REMAIN INTACT AND PATENT. WILL CONTINUE TO MONITOR.
[2019-11-04 03:38] LABS: International Normalized Ratio 2.3; Prothrombin Time Results 23.5 Sec (9.7-11.5)
[2019-11-04 03:43] LABS: Albumin, Blood 1.6 g/dL (3.4-5.0); Albumin/Globulin Ratio 0.5 (0.8-1.8); Bilirubin, Total 5.1 mg/dL (0.1-1.0); Bun/Creatinine Ratio 21.1 (12.0-20.0); Calcium, Blood 8.2 mg/dL (8.5-10.1); Creatinine, Blood 1.28 mg/dL (0.40-1.00); Globulin, Blood 3.1 g/dL (2.2-4.0); Potassium, Blood 2.6 mmol/L (3.5-5.5); Total Protein, Blood 4.7 g/dL (6.4-8.2)
--- NOTE | 2019-11-04 05:46 | NUR ---
SHIFT SUMMARY PT REMAINED IN BED ENTIRE SHIFT. ENCOURAGED PT TO TURN AND ASSIST WITH TURNING AND MOVEMENT OF EXTREMITIES. PT REFUSED TO TURN FROM SIDE TO SIDE AT TIMES AND DID NOT PARTICIPATE WITH EFFORTS TO USE EXTREMITIES. TOELRATED FEW SIPS OF WATER THROUGHOUT NIGHT. LEVOPHED GTT DOWN TO 10 MCG AND VASOPRESSIN REMAINS INFUSING. SPO2 REMAINS 96% ON 4L NC. K+ 2.6 THIS AM; REPLACING WITH 40 MEQ; CURRENTLY INFUSING. RECTAL TUBE OUTPUT WAS 1000 ML. LAZAR OUTPUT WAS 1500 ML. PT SLEEPING AT THIS TIME. WILL GIVE BEDSIDE, HANDOFF REPORT TO DAY RN.
--- NOTE | 2019-11-04 07:45 | NUR ---
PT AWAKE, REMAINS CONFUSED, ALERT TO PLACE BUT HALLUCINATING AND REMOVING N/C AND BLOOD PRESSURE CUFF WELL ATTEMPTING TO REMOVE HEART MONITOR. EDUCATED PT ON NEED FOR MONITORING. PT ALSO RESISTANT TO REPOSITIONING AND PILLOW.
--- NOTE | 2019-11-04 08:15 | NUR ---
PT REFUSING CT ABD, STATES SHE "DOESN'T WANT A CAT" ON HER. EXPLAINED TO PT TEST IS FOR A RADIOLOGY SCAN OF HER ABDOMEN. CALLED PT SO KYLE WRIGHT SPOKE WITH PT, SHE NOW CONSENTS TO HAVE SCAN.
[2019-11-04 08:38] LABS: Vancomycin, Trough 35.2 ug/mL (5.0-10.0)
--- NOTE | 2019-11-04 09:24 | NUR ---
PT TO RADIAOLOGY FOR CT ABD
--- NOTE | 2019-11-04 09:55 | NUR ---
PT. BACK FROM CT.
[2019-11-04 10:12] LABS: Vancomycin, Trough 32.8 ug/mL (5.0-10.0)
--- NOTE | 2019-11-04 13:26 | NUR ---
PT UP TO RECLINER, TOLERATING WELL, DENIES PAIN AT THIS TIME. WILL CONTINUE TO MONITOR.
--- NOTE | 2019-11-04 14:40 | NUR ---
PT K+ @ 3.0, NOTIFIED DR. VALADEZ, RECEIVED ORDER FOR POTASSIUM 80MEQ LIQUID PO NOW AND 40MEQ LIQUID PO@ 2000
--- NOTE | 2019-11-04 15:15 | NUR ---
PT BACK TO BED FROM CHAIR, POSITIONERD TO LEFT SIDE, MAINTAINING POSITION. PT STATES SHE FEELS TIRED. WILL CONTINUE TO MONITOR.
--- NOTE | 2019-11-04 16:39 | NUR ---
PT CT ABD COMPLETED TODAY, SAT UP IN RECLINER TODAY AND TOLERATED WELL. C/O SOME BACK PAIN AND WAS MEDICATED WITH FENTANYL WITH GOOS RESULT. POTASSIUM 3.0 AT 1400 DRAW, ORAL LIQUID POTASSIUM REPLACMENT WITH 80 MEQ. PT TO GET MORE ORAL POTASSIUM AT 1999. VASOPRESSIN OFF. LEPHOPHED AT 9 MCG. MAITAINING MAP. PT. OUTPUT GOOD. LIQUID STOOL FROM FLEXI SEAL. NO DISTRESS AT THIS TIME.
--- NOTE | 2019-11-04 19:00 | NUR ---
ASSUMED CARE NOTE: ASSUMED CARE OF PT AT 1900, RECEVIED REPORT FROM AMANDA WOLFF. PT IS ALERT AND ORIENTEDX2, ABLE TO FOLLOW COMMANDS. UNABLE TO STATE TIME OR RECALL RECENT EVENTS. PT IS HALLUCINATING STATING " THERE IS A WOMEN IN MY ROOM, SHE IS TRYING TO TAKE ME HOME" PT IS ON 4L OF 02 VIA NC, WITH SPO2 ABOVE 95% PT IS IN NSR WITH HR IN THE 90'S. SOFT BP NOTED PT ON 12MCG/MIN OF LEVOPHED. LAZAR IS PATENT DRAINING RAJNI COLORED URINE. RECTAL TUBE IN PLACE, DRAINING BROWN LIQUID. PT IS EDEMATOUS T/O. WILL CONTINUE TO MONITOR PT T/O SHIFT.
[2019-11-05 03:50] LABS: Hematocrit 27.9 % (33.0-51.0); Hemoglobin 9.7 g/dL (11.5-16.0); Mean Corpuscular HGB 31.1 pg (26.0-34.0); Mean Corpuscular HGB Conc 34.8 g/dL (31.5-36.5); Mean Corpuscular Volume 89 fL (80-100); Mean Platelet Volume 12.2 fL (9.1-12.4); NRBC ABSOLUTE 0.11 K/mm3 (0.00-0.02); NRBC Auto 0.3 /100 WBC (0.0-0.2); Platelet Count 112 K/mm3 (150-400); RDW Coefficient Variation 18.5 % (11.7-14.2); RDW Standard Deviation 58.7 fL (35.1-46.3); Red Blood Cell Count 3.12 M/mm3 (3.80-5.20); White Blood Cell Count 35.53 K/mm3 (4.00-11.30)
[2019-11-05 04:02] LABS: International Normalized Ratio 2.22; Prothrombin Time Results 22.7 Sec (9.7-11.5)
[2019-11-05 04:05] LABS: Anion Gap 9 mmol/L (6-16); Blood Urea Nitrogen 27 mg/dL (8-24); CO2, Blood 22 mmol/L (21-32); Calcium, Blood 8.1 mg/dL (8.5-10.1); Chloride, Blood 104 mmol/L (98-108); Creatinine, Blood 1.23 mg/dL (0.40-1.00); Glomerular Filtration Rate 48 (60-); Glucose, Blood 122 mg/dL (70-99); Magnesium, Blood 2.1 mg/dL (1.6-2.4); Potassium, Blood 3.2 mmol/L (3.5-5.5); Sodium, Blood 135 mmol/L (136-145); Vancomycin, Random 26.6 ug/mL
--- NOTE | 2019-11-05 06:12 | NUR ---
SHIFT SUMMARY: SEE PREVIOUS NOTES. NO SIGNIFICANT CHANGES T/O SHIFT. PT CONTINUES TO BE ALERT AND ORIENTED TO SELF AND ABLE TO FOLLOW DIRECTIONS. PT CONTINUES TO HAVE AUDITORY AND VISUAL HALLUCINATIONS. PT ON 4L OF 02 VIA NC, WITH SPO2 AT 92% PT TAKES OFF NC FREQUENTLY, CAUSING SPO2 TO DROP INTO THE MID 80'S. PT IN NSR WITH HR IN THE 70'S. LEVOPHED RUNNING AT 14MCG/MIN, AND VASOPRESSIN AT 0.04UNITS/MIN. PT HAS DENIED ANY PAIN T/O SHIFT. RECTAL TUBE IS DRAINING TO GRAVITY 1000ML BROWN LIQUID OUTPUT. LAZAR IS PATENT DRAINING RAJNI COLORED URINE, 400ML OUTPUT FOR SHIFT. PT RECEVING K+ REPLACEMENT THIS AM. WILL CONTINUE TO MONITOR PT UNTIL REPORT IS GIVEN TO ONCOMING SHIFT.
--- NOTE | 2019-11-05 18:02 | NUR ---
SHIFT SUMMARY PT IS ALERT, ORIENTED TO SELF, FOLLOWS COMMANDS, PT CONTINUES TO HAVE BOTH AUDITORY AND VISUAL HALLUCINATIONS. VASOPRESSORS REMAIN RUNNING AND WAS ONLY ABLE TO DECREASE LEVOPHED TO 12, NO CHANGE TO VASOPRESSIN. SEE EMAR FOR FULL DOCUMENTATION. MAPS HAVE REMAINS >65 PER GOAL. MONITOR HAS SHOWN PT TO BE IN SINUS RYTHMN. RECTAL TUBE REMAINS IN PLACE FOR LIQUID BROWN STOOL FROM LACTULOSE. PER DR MARTIN, ORDERS RECEIVED FOR C-DIFF TESTING. PT PLACED IN ISOLATION PER PROTOCOL AND PT HAD A POSITIVE RESULT. DR MARTIN AND DHRUV WERE NOTIFIED OF RESULTS. PT'S SISTER CAME TODAY AND DR BARTLETT EXPLAINED TO HER HOW CRITICAL THE PT'S STATUS IS. ADDITIONAL FAMILY WERE ALLOWED TO VISIT TODAY TO VISUALIZE HOW SICK PT IS AND VISIT. MARIO IN PALLITIVE CARE WAS ALSO UPDATED ON DISCUSSIONS WITH FAMILY TODAY.
--- NOTE | 2019-11-05 19:15 | NUR ---
ASSUMED CARE NOTE: ASSUMED CARE OF PT AT 1900, RECEVIED REPORT FROM DAGO Dixon RN. PT IS ALERT AND ORIENTEDX2, CONFUSED AT TIMES. SLOW TO RESPOND, TALKS TO SELF. PT ON RA WITH SPO2 ABOVE 90% PT IN NSR WITH HR IN THE 90'S. PT ON LEVOPHED RUNNING AT 12MCG/MIN, VASOPRESSIN AT 0.04UNITS/MIN. ABDOMEN TENDER, RECTAL TUBE DRAINING TO GRAVITY, BROWN LIQUID STOOL. LAZAR PATNET DRAINING TO GRAVITY. WILL CONTINUE TO MONITOR PT T/O SHIFT.
[2019-11-06 03:49] LABS: BASOPHILS PERCENT AUTO 0 % (0-2); EOSINOPHILS ABSOLUTE AUTO 0.23 K/mm3 (0.00-0.68); EOSINOPHILS PERCENT AUTO 1 % (0-6); Hemoglobin 9.9 g/dL (11.5-16.0); IMMATURE GRAN ABSOLUTE AUTO 1.48 K/mm3 (0.00-0.10); IMMATURE GRAN PERCENT AUTO 5 % (0-1); LYMPHOCYTES ABSOLUTE AUTO 4.36 K/mm3 (0.84-5.20); LYMPHOCYTES PERCENT AUTO 14 % (21-46); MONOCYTES ABSOLUTE AUTO 1.98 K/mm3 (0.16-1.47); MONOCYTES PERCENT AUTO 7 % (4-13); Mean Corpuscular HGB 30.8 pg (26.0-34.0); Mean Corpuscular HGB Conc 34.1 g/dL (31.5-36.5); Mean Corpuscular Volume 90 fL (80-100); Mean Platelet Volume 12.2 fL (9.1-12.4); NEUTROPHILS ABSOLUTE AUTO 22.48 K/mm3 (1.96-9.15); NEUTROPHILS PERCENT AUTO 73 % (41-73); NRBC ABSOLUTE 0.12 K/mm3 (0.00-0.02); NRBC Auto 0.4 /100 WBC (0.0-0.2); Platelet Count 99 K/mm3 (150-400); RDW Coefficient Variation 18.5 % (11.7-14.2); RDW Standard Deviation 59.6 fL (35.1-46.3); Red Blood Cell Count 3.21 M/mm3 (3.80-5.20); White Blood Cell Count 30.63 K/mm3 (4.00-11.30)
[2019-11-06 04:02] LABS: International Normalized Ratio 2.27; Prothrombin Time Results 23.2 Sec (9.7-11.5)
[2019-11-06 04:07] LABS: Alanine Aminotransfer (ALT/SGP 66 U/L (12-78); Albumin, Blood 1.6 g/dL (3.4-5.0); Albumin/Globulin Ratio 0.5 (0.8-1.8); Alk Phos 300 U/L (50-136); Anion Gap 11 mmol/L (6-16); Aspartate Aminotrans (AST/SGOT 99 U/L (12-37); Bilirubin, Total 5.4 mg/dL (0.1-1.0); Blood Urea Nitrogen 28 mg/dL (8-24); Bun/Creatinine Ratio 19.6 (12.0-20.0); CO2, Blood 21 mmol/L (21-32); CPK Creatine Kinase 18 U/L (26-193); Calcium, Blood 8.2 mg/dL (8.5-10.1); Chloride, Blood 104 mmol/L (98-108); Creatinine, Blood 1.43 mg/dL (0.40-1.00); Globulin, Blood 3.4 g/dL (2.2-4.0); Glomerular Filtration Rate 41 (60-); Glucose, Blood 123 mg/dL (70-99); Magnesium, Blood 2.1 mg/dL (1.6-2.4); Phosphorus, Blood 2.6 mg/dL (2.5-4.9); Potassium, Blood 2.8 mmol/L (3.5-5.5); Sodium, Blood 136 mmol/L (136-145); Vancomycin, Random 22.8 ug/mL
[2019-11-06 04:13] LABS: BAND PERCENT MAN 1 % (0-8); BASOPHILS PERCENT MAN 0 % (0-2); EOSINOPHILS PERCENT MAN 1 % (0-6); LYMPHOCYTES ABSOLUTE MAN 1.53 K/mm3 (0.84-5.20); LYMPHOCYTES PERCENT MAN 5 % (21-46); MONOCYTES ABSOLUTE MAN 1.53 K/mm3 (0.16-1.47); MONOCYTES PERCENT MAN 5 % (4-13); NEUTROPHILS ABSOLUTE MAN 27.26 K/mm3 (1.96-9.15); SEG NEUTROPHILS PERCENT MAN 88 % (41-73); TOTAL CELLS COUNTED 100
--- NOTE | 2019-11-06 04:50 | NUR ---
CALLED FOR LOW K+ LEVEL, WAITING FOR CALL BACK.
--- NOTE | 2019-11-06 05:43 | NUR ---
SHIFT SUMMARY: NO SIGNIFICANT CHANGES THIS SHIFT. PT CONTINUES TO BE ALERT, ORIENTEDX2, CONFUSED. PT WAS ON 4L OF 02 VIA NC, IS NOW ON RA WITH SPO2 ABOVE 90% NO RESPRIATORY DISTRESS NOTED. PT HAS BEEN IN NSR WITH HR IN THE 90'S. RADHA STABLE WITH PRESSORS, LEVOPHED CURRENTLY AT 11MCG/MIN AND VASOPRESSIN AT 0.04UNITS/MIN. RECTAL TUBE HAD 700ML OF BROWN LIQUID STOOL. RECTAL TUBE WAS LEAKING, WAS REAJUSTED AND DRAINING WELL NOW. LAZAR PATNET DRAINING RAJNI COLORED URINE, 400ML OUTPUT THIS SHIFT. PT HAS BEEN REPOSITIONED Q2HR. WILL CONTINUE TO MONITOR PT UNTIL REPORT IS GIVEN TO ONCOMING SHIFT.
--- NOTE | 2019-11-06 11:40 | NUR ---
AM NOTE... ASSUMED CARE OF PT APROX 0700, PT IS A&Ox4 WITH MOMENTS OF FORGETFULNESS, PT IS ABLE TO TELL ME THE YEAR, SHE THOUGHT THE MONTH WAS NOVEMBER, SHE WAS ABLE TO STATE THE PRESIDENT, WHERE SHE WAS AT AND HER BIRTHDAY. PT'S VS STARTED OUT STABLE ON 8MCG/MIN AND VASOPRESSIN AT 0.04U/MIN. AT APROX 0830 THE PT'S BP STARTED TO DECREASE, LEVOPHED WAS TITRATED UP TO KEEP MAP >60. PROVIDER WAS MADE AWARE. PT WAS PLACED ON 2L NC FOR O2 SATS IN THE MID 80'S WITH A GOOD PLETH. L/S CLEAR T/O DIM IN THE BASES. BT PRESENT AND HYPERACTIVE, ABD HAD MOD DISTENTION, FIRM AND VERY TENDER TO PALP. PT HAS GENERALIZED 4+ PITTING EDEMA/ANASCARA. LAZAR IS PATENT AND DRAINING DARK YELLOW CLEAR URINE. RECTAL TUBE IN PLACE DRAINING DARK BROWN LIQUID STOOL. CALL LIGHT IN REACH WILL CONTINUE TO MONITOR.
[2019-11-06 12:18] LABS: Hematocrit 30.2 % (33.0-51.0); Hemoglobin 10.3 g/dL (11.5-16.0)
[2019-11-06 16:40] LABS: Magnesium, Blood 1.8 mg/dL (1.6-2.4); Potassium, Blood 3.4 mmol/L (3.5-5.5)
--- NOTE | 2019-11-06 19:15 | NUR ---
SHIFT SUMMARY... PT CONTINUES TO BE ON LEVOPHED AT 30MCG/MIN PT'S BP HAS BEEN VERY UNSTABLE WITH BP'S IN THE 40'S/20'S TO 110'S/80'S. MANUAL BP DONE AT 1830 WAS 110/70 RECHECK ON THE MACHINE WAS 108/80. PROVIDER AWARE. VASOPRESSIN CONTINUES AT 0.04U/MIN. PT'S LAZAR PATENT AND INTACT HOWEVER THE LAZAR BAG DEVELOPED A HOLE IN THE SEAM AND LEAKED MOST OF THE URINE ONTO THE BED. THE BAG WAS CHANGED AT APROX 1430. RECTAL TUBE IS PATENT AND DRAINING BROWNISH/RED LIQUID STOOLS, THE BAG WAS MARKED WITH TODAY'S OUTPUT AND CHARTED. PT HAS OPEN AREAS TO HER RIGHT INNER THIGHS, PICTURES IN THE CHART. PT HAS BEEN SOAKING CHUCKS PADS UNDERNEATH HER WITH A LIGHT YELLOW FLUID, THIS DOES NOT LOOK LIKE HER DARK YELLOW URINE AND DOES NOT SMELL LIKE URINE, IT LOOKS LIKE THE PT'S EDEMA HAS BEEN WHEEPING IN THIS AREA. DOBHOFF TUBE PLACED AND VERIFIED VIA XRAY PRIOR TO USE. CALL LIGHT IN REACH WILL CONTINUE TO MONITOR UNTIL REPORT IS GIVEN TO ONCOMING RN.
--- NOTE | 2019-11-06 19:30 | NUR ---
ASSUMED CARE REPORT AND BEDSIDE ROUNDING WITH LE RN AT 1855. ASSUMED PT CARE AT THIS TIME. PT RESPONSIVE TO VERBAL STIMULI. AXOX3 WHEN AWAKE. PT ABLE TO PROVIDE SMALL RESPONSES TO QUESTIONS. PT PALE AND JAUNICED APPEARING. SKIN TIGHT AND EDEMATOUS WITH WEEPING TO LEGS. PULSE STRONG TO BOTH RADIAL, DOPPLER TO BLE. HR SR TO ST ON MONITOR. BP STABLE AT THIS TIME. PT HYPOTENSIVE ALOT DURING DAY SHIFT PER RN. PT HAS QUAD LUMEN TO RIGHT IJ, SITE WNL, DRESSING C/D/I. PT HAS LEVOPHED INFUSING AT 30MCG/KG/MIN, VASOPRESSIN INFUSING AT 0.4UNITS/MIN, MULT ELECTROLYTES INFUSING, ZOSYN INFUSING AT 12.5ML/HR. PT HAS TEMP LAZAR DRAINING RAJNI URINE. PT HAS RECTAL TUBE WITH SOME MUCOUSY BROWN STOOL TO TUBING. PT ON 3L O2 PER NC, SATS >92%, LUNG SOUNDS CLEAR TO UPPER LUNG ARORA, DIMINSHED TO BASES. PT TACHYPNEAIC. DOBHOFF TO LEFT NARE, CLAMPED AT THIS TIME, CONFIRMED FOR USE DURING DAY SHIFT. CALL LIGHT IN REACH. SEE FULL SHIFT ASSESSMENT.
[2019-11-07 04:18] LABS: BASOPHILS ABSOLUTE AUTO 0.07 K/mm3 (0.00-0.23); BASOPHILS PERCENT AUTO 0 % (0-2); EOSINOPHILS ABSOLUTE AUTO 0.25 K/mm3 (0.00-0.68); EOSINOPHILS PERCENT AUTO 1 % (0-6); Hematocrit 28.6 % (33.0-51.0); Hemoglobin 9.8 g/dL (11.5-16.0); IMMATURE GRAN ABSOLUTE AUTO 1.47 K/mm3 (0.00-0.10); IMMATURE GRAN PERCENT AUTO 5 % (0-1); LYMPHOCYTES ABSOLUTE AUTO 6.12 K/mm3 (0.84-5.20); LYMPHOCYTES PERCENT AUTO 19 % (21-46); MONOCYTES ABSOLUTE AUTO 2.69 K/mm3 (0.16-1.47); MONOCYTES PERCENT AUTO 8 % (4-13); Mean Corpuscular HGB 30.9 pg (26.0-34.0); Mean Corpuscular HGB Conc 34.3 g/dL (31.5-36.5); Mean Corpuscular Volume 90 fL (80-100); Mean Platelet Volume 12.5 fL (9.1-12.4); NEUTROPHILS ABSOLUTE AUTO 21.37 K/mm3 (1.96-9.15); NEUTROPHILS PERCENT AUTO 67 % (41-73); NRBC Auto 0.6 /100 WBC (0.0-0.2); Platelet Count 92 K/mm3 (150-400); RDW Coefficient Variation 18.6 % (11.7-14.2); RDW Standard Deviation 59.9 fL (35.1-46.3); Red Blood Cell Count 3.17 M/mm3 (3.80-5.20); White Blood Cell Count 31.97 K/mm3 (4.00-11.30)
[2019-11-07 04:50] LABS: Alanine Aminotransfer (ALT/SGP 63 U/L (12-78); Albumin, Blood 1.5 g/dL (3.4-5.0); Albumin/Globulin Ratio 0.4 (0.8-1.8); Alk Phos 305 U/L (50-136); Anion Gap 8 mmol/L (6-16); Aspartate Aminotrans (AST/SGOT 104 U/L (12-37); Bilirubin, Total 5.6 mg/dL (0.1-1.0); Blood Urea Nitrogen 29 mg/dL (8-24); Bun/Creatinine Ratio 17.6 (12.0-20.0); CO2, Blood 22 mmol/L (21-32); Calcium, Blood 8.3 mg/dL (8.5-10.1); Chloride, Blood 106 mmol/L (98-108); Creatinine, Blood 1.65 mg/dL (0.40-1.00); Globulin, Blood 3.6 g/dL (2.2-4.0); Glomerular Filtration Rate 34 (60-); Glucose, Blood 129 mg/dL (70-99); Magnesium, Blood 2.2 mg/dL (1.6-2.4); Phosphorus, Blood 2.7 mg/dL (2.5-4.9); Potassium, Blood 3.3 mmol/L (3.5-5.5); Sodium, Blood 136 mmol/L (136-145); Total Protein, Blood 5.1 g/dL (6.4-8.2); Vancomycin, Random 20.7 ug/mL
--- NOTE | 2019-11-07 06:03 | NUR ---
SHIFT SUMMARY PT HAD GOOD SHIFT. LESS RESPONSIVE COMPARED TO BEGINING OF SHIFT. ABLE TO ASSIST WITH CARE AND ANSWER QUESTIONS. PT REMAINS ON 3L PER NC, SATS >92%, LUNG SOUNDS REMAIN CLEAR TO UPPER ARORA, DIMINISHED TO LOWER ARORA. RESP RATE LESS TACHYPNEAIC (18-24). PT SR ON THE MONITOR, RATE 88. BP STABLE, ABLE TO TITRATE LEVOPHED TO 22MCG/MIN. VASO CONTINUES AT 0.04UNITS/MIN, NS AT 10/ML. 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 PT HAS TEMP LAZAR IN PLACE, SMALL AMOUNT OF RAJNI URINE NOTED, PT AFEBRILE. SKIN CONTINUES TO BE SWOLLEN AND WEEPY. LINENS CHANGED A FEW TIMES DUE TO DRAINAGE. RECTAL TUBE IN PLACE, DRAINING LIQUID BROWN STOOL. PULSES TO LOWER EXT OBTAINED VIA DOPPLER, PULSES TO BILATERAL WRISTS STRONG. PT MAKES FEEBLE ATTEMPTS TO MOVE EXTREMITIES. PT DENIES PAIN. CALL LIGHT REMAINS IN REACH. WILL REPORT TO ONCOMING SHIFT.
--- NOTE | 2019-11-07 11:05 | NUR ---
AM NOTE... ASSUMED CARE OF PT APROX 0700, PT IS A&Ox4 ABLE TO STATE THE YEAR, THE PRESIDENT, HER NAME AND SHE IS IN [facility]. PT IS DROWSY, WAKES EASILY BUT FALLS BACK ASLEEP EASILY. PT'S BP IS CURRENTLY STABLE W/MAPS>60 ON LEVOPHED 22MCG/MIN AND VASOPRESSIN AT 0.04 U/MIN. PT IS IN NSR IN THE 70'S-90'S. PT HAS 4+ GENERALIZED EDEMA AND 2+ TO HER BUE, PT'S HIPS/THIGHS/BUTTOCKS HAVE BEEN WHEEPING CLEAR YELLOW FLUID. L/S CLEAR AND DIM T/O ON 3L NC WITH O2 SATS >90%. LAZAR IS PATENT AND DRAINING DARK YELLOW URINE TO GRAVITY. RECTAL TUBE IN PLACE AND PATENT DRAINING LIQUID BROWN STOOL TO GRAVITY. BT PRESENT AND HYPOACTIVE, ABD IS SEVERELY DISTENDED, MORE SO THAN YESTERDAY, FRIM AND TENDER TO PALP. PT'S BOYFRIEND AT THE BEDSIDE, UPDATED ON CONDITION AND PLAN OF CARE. CALL LIGHT IN REACH WILL CONTINUE TO MONITOR.
[2019-11-07 14:24] LABS: Automated BF RBC Count 0.006 M/mm3 (0-0); Automated BF WBC Count 0.274 K/mm3 (0-999); Body Fluid WBC Count 274 /mm3 (0-999); RBC Count, Body Fluid 6000 /mm3 (0-0)
[2019-11-07 14:44] LABS: Albumin, Body Fluid 0.2 g/dL; Glucose, Body Fluid 131 mg/dL; Lactate Dehydrogenase, Body Fl 133 U/L; Protein, Body Fluid 0.8 g/dL
--- NOTE | 2019-11-07 15:01 | NUR ---
PT UPDATE... PT HAD PARACENTESIS WITH 3L REMOVED, PT'S VS HAVE BEEN STABLE ON THE LEVOPHED AT 22MCG/MIN AND VASOPRESSIN AT 0.04U/MIN WITH MAPS >60. PT'S RECTAL TUBE HAD LEAKED, SOME BLOOD WITH SMALL BLOOD CLOTS WAS NOTED ON THE CHUCKS. IT WAS ALSO NOTED THAT NOW THE PT'S ARMS AND LOWER LEGS ARE NOW WHEEPING CLEAR YELLOW FLUID. PROVIDER AWARE. WILL MONITOR THE PT'S H&H. WILL CONTINUE TO MONITOR.
[2019-11-07 15:14] LABS: Color, Body Fluid Amber (None-Yellow); Total Cell Count, Body Fluid 100
[2019-11-07 15:15] LABS: Appearance, Body Fluid Hazy (Clear)
--- NOTE | 2019-11-07 18:08 | NUR ---
SHIFT SUMMARY... T/O THE SHIFT THE PT'S LEVOPHED HAS BEEN TITRATED FROM 22MCG/MIN TO 14MCG/MIN WITH MAPS>60. PT'S LAZAR CONTINUES TO BE PATENT AND DRAINING DARK YELLOW URINE TO GRAVITY. PT'S RECTAL TUBE IS ALSO PATENT AND DRAINING BROWNISH RED LIQUID STOOL, THE TUBE WAS IRRIGATED WITH 50MLS OF WATER THIS SHFIT D/T LEAKING. PT CONTINUES TO WHEEP CLEAR YELLOW FLUID FROM ALL OVER. THE PARACENTHESIS SITE IS LEAKING WELL, A PINK CLOVER MEPILEX WAS PLACED OVER THE SITE AND WITHIN 2 HOURS WAS SATURATED. PT WAS STARTED ON TUBE FEED WITH GOAL RATE OF 60MLS/HR PT IS CURRENTLY AT 35MLS/HR AND IS TOLERATING THIS WELL. CALL LIGHT IN REACH WILL CONTINUE TO MONITOR UNTIL REPORT IS GIVEN TO ONCOMING RN.
--- NOTE | 2019-11-07 19:30 | NUR ---
ASSUMED PT CARE REPORT AND BEDSIDE ROUNDING WITH LE WOLFF AT 1900, ASSUMED PT CARE. PT DROWSY, RESPONDS TO VERBAL STIMULI AND ABLE TO ANSWER BASIC QUESTIONS. PT HAS CL TO RIGHT IJ, SITE WITH SCANT BLOOD NOTED, DRESSING C/D/I. PT HAS VASOPRESSIN INFUSING AT 0.04UNITS/MIN, LEVOPHED INFUSING AT 12MCG/MIN, NS INFUSING AT 10ML/HR. PT SKIN JAUNDICED/PALE/MOIST, REQUIRES MULT DRESSING CHANGES AND LINEN CHANGES DUE TO MOISTURE. TEMP PROBE LAZAR DRAINING YELLOW URINE, PT AFEBRILE. PT SR ON THE MONITOR, RATE 60S-70S. BPS STABLE TODAY. PT SATS >92% ON ROOM AIR. ABD DISTENDED BUT MORE SOFT. BS PRESENT. RECTAL TUBE DRAINING BROWNISH RED TINGED STOOL. DOBHOFF TO LEFT NARE WITH VITAL HIGH PROTEIN INSTILLING AT 35ML/HR (GOAL 60ML/HR). CALL LIGHT IN REACH, PT INTERMITTENTLY WATCHING TV. SEE FULL SHIFT ASSESSMENT.
[2019-11-07 20:30] LABS: Hematocrit 25.1 % (33.0-51.0); Hemoglobin 8.6 g/dL (11.5-16.0)
--- NOTE | 2019-11-07 21:20 | NUR ---
PROVIDER UPDATE SPOKE WITH DR BARTLETT RE CHANGE IN STOOL (NOW MAROON AND JELLY LIKE) AND INCREASE IN BRUISING. INSTRUCTIONS TO DC ENULOSE AND HEPARIN, START PROTONIX DRIP AFTER BOLUS.
[2019-11-08 04:51] LABS: BASOPHILS ABSOLUTE AUTO 0.03 K/mm3 (0.00-0.23); BASOPHILS PERCENT AUTO 0 % (0-2); EOSINOPHILS ABSOLUTE AUTO 0.02 K/mm3 (0.00-0.68); EOSINOPHILS PERCENT AUTO 0 % (0-6); Hematocrit 23.8 % (33.0-51.0); Hemoglobin 8.2 g/dL (11.5-16.0); IMMATURE GRAN ABSOLUTE AUTO 0.91 K/mm3 (0.00-0.10); IMMATURE GRAN PERCENT AUTO 4 % (0-1); LYMPHOCYTES ABSOLUTE AUTO 3.61 K/mm3 (0.84-5.20); LYMPHOCYTES PERCENT AUTO 15 % (21-46); MONOCYTES ABSOLUTE AUTO 1.39 K/mm3 (0.16-1.47); MONOCYTES PERCENT AUTO 6 % (4-13); Mean Corpuscular HGB 31.3 pg (26.0-34.0); Mean Corpuscular HGB Conc 34.5 g/dL (31.5-36.5); Mean Corpuscular Volume 91 fL (80-100); NEUTROPHILS ABSOLUTE AUTO 17.61 K/mm3 (1.96-9.15); NEUTROPHILS PERCENT AUTO 75 % (41-73); NRBC ABSOLUTE 0.13 K/mm3 (0.00-0.02); NRBC Auto 0.6 /100 WBC (0.0-0.2); Platelet Count 68 K/mm3 (150-400); RDW Coefficient Variation 18.5 % (11.7-14.2); RDW Standard Deviation 59.8 fL (35.1-46.3); Red Blood Cell Count 2.62 M/mm3 (3.80-5.20); White Blood Cell Count 23.57 K/mm3 (4.00-11.30)
[2019-11-08 05:10] LABS: International Normalized Ratio 2.3; Prothrombin Time Results 23.5 Sec (9.7-11.5)
[2019-11-08 05:12] LABS: Alanine Aminotransfer (ALT/SGP 48 U/L (12-78); Albumin, Blood 1.8 g/dL (3.4-5.0); Albumin/Globulin Ratio 0.6 (0.8-1.8); Alk Phos 252 U/L (50-136); Anion Gap 9 mmol/L (6-16); Aspartate Aminotrans (AST/SGOT 81 U/L (12-37); Blood Urea Nitrogen 31 mg/dL (8-24); Bun/Creatinine Ratio 19.1 (12.0-20.0); CO2, Blood 23 mmol/L (21-32); Calcium, Blood 8.1 mg/dL (8.5-10.1); Chloride, Blood 105 mmol/L (98-108); Creatinine, Blood 1.62 mg/dL (0.40-1.00); Globulin, Blood 3.1 g/dL (2.2-4.0); Glomerular Filtration Rate 35 (60-); Glucose, Blood 147 mg/dL (70-99); Magnesium, Blood 2.2 mg/dL (1.6-2.4); Phosphorus, Blood 2.8 mg/dL (2.5-4.9); Potassium, Blood 2.9 mmol/L (3.5-5.5); Sodium, Blood 137 mmol/L (136-145); Total Protein, Blood 4.9 g/dL (6.4-8.2); Vancomycin, Random 15.9 ug/mL
--- NOTE | 2019-11-08 06:15 | NUR ---
SHIFT SUMMARY PT DID WELL. LESS INTERACTIVE UNLESS REPOSITIONING AND TURNING. PT CONTINUES ON 3L O2 PER NC, SATS >95%, RESP NON LABORED. PT HAS CL TO RIGHT IJ, SITE WNL, DRESSING C/D/I. INFUSING MEDS: LEVOPHED @ 14MCG/MIN, VASO @ 0.04UNITS/MIN, NS @ 10ML/HR, POTASSIUM CHLORIDE @ 50ML/HR, PROTONIX @ 10ML/HR, VANCO @ 110ML/HR. PT IN SR IN 70'S, BPS STABLE. SKIN CONTINUES TO BE PALE/JAUNDICED AND MOIST. PTS RECTAL TUBE NOW DRAINING RED LIQUID. PT HAD MULT EPISODES OF INCONTINENT LIQUID/MUCOUSY/MAROON/RED STOOL DURING SHIFT. ENULOSE DC BY DR BARTLETT. BRUISING NOTED TO CHEST/ABD ABD ARMS. SC HEPARIN DC BY DR BARTLETT. PT HAS TEMP LAZAR DRAINING YELLOW URINE, OUTPUT MUCH IMPROVED. SKIN IS STILL VERY EDEMATOUS AND WEEPS CONSTANTLY. PT WOULD BENEFIT FROM CONTINUED PALLIATIVE CARE AND SEAFOOD PROCESSOR REGARDING STATUS. WILL REPORT TO ON COMING SHIFT.
--- NOTE | 2019-11-08 09:51 | NUR ---
AM NOTE... ASSUMED CARE OF PT APROX 0700, PT IS A&O3 ABLE TO ANSWER SIMPLE QUESTIONS, PT IS SLOW TO RESPOND. PT STARTED THE SHIFT ON LEVOPHED AT 14MCG/MIN AND VASO AT 0.04U/MIN WITH STABLE BP'S WITH MAPS >60. L/S CLEAR T/O ON 2L NC, BT PRESENT AND HYPOACTIVE, ABD IS SEVERELY DISTENDED, FIRM AND VERY TENDER TO PALP. PT HAS GENERALIZED 4+ PITTING EDEMA. LAZAR PATENT AND DRAINING CLEAR YELLOW URINE TO GRAVITY. RECTAL TUBE IN PLACE, DURING PT'S TURNING IT WAS NOTED THAT THE PT WAS PASSING MARBLE TO QUARTER SIZED BLOOD CLOTS AROUND THE RECTAL TUBE. THE STOOL WAS DARK BROWN/BLACK. THE TUBE WAS FLUSHED BUT THIS DID NOT HELP. THE TUBE WAS REMOVED AND A LARGE GOLF BALL SIZED CLOT WAS PLUGGING THE RECTAL TUBE. PT'S SKIN CONTINUES TO WHEEP CLEAR YELLOW FLUIDS. CALL LIGHT IN REACH WILL CONTINUE TO MONITOR
[2019-11-08 10:32] LABS: Hematocrit 23.8 % (33.0-51.0)
[2019-11-08 16:11] LABS: Hematocrit 18.3 % (33.0-51.0); Hemoglobin 6.3 g/dL (11.5-16.0)
[2019-11-08 16:31] LABS: Albumin, Blood 2.9 g/dL (3.4-5.0); Albumin/Globulin Ratio 1.3 (0.8-1.8); Bilirubin, Total 4.9 mg/dL (0.1-1.0); Bun/Creatinine Ratio 21.3 (12.0-20.0); Calcium, Blood 8.3 mg/dL (8.5-10.1); Creatinine, Blood 1.5 mg/dL (0.40-1.00); Globulin, Blood 2.2 g/dL (2.2-4.0); Total Protein, Blood 5.1 g/dL (6.4-8.2)
--- NOTE | 2019-11-08 17:50 | NUR ---
SHIFT SUMMARY... T/O THE SHIFT THE PT'S BP HAS IMPOVED ENOUGH TO STOP THE VASOPRESSIN AT 1330 AND TITRATE THE LEVOPHED TO 8MCG/MIN KEEPING THE PT'S MAP >60. PT CONTINUES TO HAVE BLOODY LOOSE STOOLS WITH MED CLOTS. PT'S H&H HAS CONTINUED TO DROP AND IS CURRENTLY 6.3 AND 18.3. PT'S LAZAR IS PATENT AND DRAINING YELLOW URINE WITH SOME SEDIMENT TO GRAVITY. THE RECTAL TUBE WAS REMOVED D/T CLOGGING FROM THE CLOTS AND PT'S STOOL. GI PROVIDER WAS CONSULTED AND AN EGD IS PLANNED FOR 729 TOMORROW. PT IS TO HAVE HER DOBHOFF STOPPED AT 2200, PT MAY STILL HAVE WATER PRN. THE PARACENTESIS SITE STARTED TO BLEED AT 1530 THE SMALL CLOVER MEPILEX WAS SATURATED, DR. PETERS AND DR. KELLY AWARE. PT'S FAMILY WAS CALLED AND VERBAL CONSENT WAS OBTAINED FOR BLOOD TRANSFUSIONS. PT'S POTASSIUM WAS 3.0, PROVIDER CALLED AND ORDERS OBTAINED TO REPLACE WITH IV KCL. CALL LIGHT IN REACH, WILL CONTINUE TO MONITOR UNTIL REPORT IS GIVEN TO ONCOMING RN.
--- NOTE | 2019-11-08 20:23 | NUR ---
ASSUMED CARE NOTE: ASSUMED CARE OF PT AT 1900, RECEVIED REPORT FROM REID WOLFF. PT IS ALERT AND ORIENTED TO SELF. PT IS ABLE TO ANSWER YES/NO QUESTIONS. PT IS SLOW TO RESPOND AND UNABLE TO CARRY A CONVERSATION. PT IS ON RA WITH SPO2 ABOVE 95% NO RESPRIATORY DISTRESS NOTED. PT IN NSR WITH HR IN THE 90'S. BLOOD PRESSURE STABLE WITH PRESSORS. LEVOPHED RUNNING AT 8MCG/MIN. PT CURRENTLTY RECEVING 1 UNIT OF BLOOD. TUBE FEEDINGS RUNNING AT GOAL 45ML/HR THROUGH DOBHOFF. BLOOD LIKE CLOTS SEEN WITH BOWEL MOVEMENTS. LAZAR PATNET DRAINING YELLOW CLOUDY URINE. WILL CONTINUE TO MONITOR PT T/O SHIFT
[2019-11-08 22:32] LABS: Hematocrit 21.9 % (33.0-51.0); Hemoglobin 7.4 g/dL (11.5-16.0)
--- NOTE | 2019-11-09 00:52 | NUR ---
UPDATE: PT IS WEEPING T/O, NEEDS CONSTANT CHANGING OF EXU-DRY PADS TO KEEP BUTTOCKS DRY AND PREVENT FURTHER BREAKDOWN. PT IS HAVING BM WITH MAYUR COLORED CLOTS. WILL CONTINUE TO MONITOR PT.
[2019-11-09 03:41] LABS: BASOPHILS ABSOLUTE AUTO 0.03 K/mm3 (0.00-0.23); BASOPHILS PERCENT AUTO 0 % (0-2); EOSINOPHILS ABSOLUTE AUTO 0.01 K/mm3 (0.00-0.68); EOSINOPHILS PERCENT AUTO 0 % (0-6); Hematocrit 21.1 % (33.0-51.0); Hemoglobin 7.1 g/dL (11.5-16.0); IMMATURE GRAN ABSOLUTE AUTO 0.99 K/mm3 (0.00-0.10); IMMATURE GRAN PERCENT AUTO 4 % (0-1); LYMPHOCYTES PERCENT AUTO 14 % (21-46); MONOCYTES ABSOLUTE AUTO 1.31 K/mm3 (0.16-1.47); MONOCYTES PERCENT AUTO 6 % (4-13); Mean Corpuscular HGB 30.1 pg (26.0-34.0); Mean Corpuscular HGB Conc 33.6 g/dL (31.5-36.5); Mean Corpuscular Volume 89 fL (80-100); NEUTROPHILS ABSOLUTE AUTO 16.97 K/mm3 (1.96-9.15); NEUTROPHILS PERCENT AUTO 76 % (41-73); NRBC ABSOLUTE 0.18 K/mm3 (0.00-0.02); NRBC Auto 0.8 /100 WBC (0.0-0.2); Platelet Count 56 K/mm3 (150-400); RDW Coefficient Variation 18.7 % (11.7-14.2); Red Blood Cell Count 2.36 M/mm3 (3.80-5.20); White Blood Cell Count 22.51 K/mm3 (4.00-11.30)
[2019-11-09 03:54] LABS: International Normalized Ratio 2.16; Prothrombin Time Results 22.1 Sec (9.7-11.5)
[2019-11-09 03:57] LABS: Alanine Aminotransfer (ALT/SGP 36 U/L (12-78); Albumin, Blood 2.6 g/dL (3.4-5.0); Albumin/Globulin Ratio 1.1 (0.8-1.8); Alk Phos 197 U/L (50-136); Anion Gap 10 mmol/L (6-16); Aspartate Aminotrans (AST/SGOT 59 U/L (12-37); Bilirubin, Indirect 2.1 mg/dL (0.1-0.7); Bilirubin, Total 5.1 mg/dL (0.1-1.0); Blood Urea Nitrogen 34 mg/dL (8-24); Bun/Creatinine Ratio 23.1 (12.0-20.0); CO2, Blood 23 mmol/L (21-32); Calcium, Blood 8.1 mg/dL (8.5-10.1); Chloride, Blood 106 mmol/L (98-108); Creatinine, Blood 1.47 mg/dL (0.40-1.00); Globulin, Blood 2.3 g/dL (2.2-4.0); Glomerular Filtration Rate 39 (60-); Glucose, Blood 134 mg/dL (70-99); Magnesium, Blood 2.2 mg/dL (1.6-2.4); Phosphorus, Blood 2.7 mg/dL (2.5-4.9); Potassium, Blood 3.1 mmol/L (3.5-5.5); Sodium, Blood 139 mmol/L (136-145); Total Protein, Blood 4.9 g/dL (6.4-8.2); Vancomycin, Random 20.9 ug/mL
--- NOTE | 2019-11-09 06:15 | NUR ---
SHIFT SUMMARY: PT CONTINUES TO BE ALERT AND ORIENTED TO SELF, FOLLOWING COMMANDS. PT HAS BEEN ON RA WITH SPO2 AT 95% PT IN NSR WITH HR IN THE 80-90'S. LEVOPHED HAS BEEN TITRATED DOWN TO 4MCG/MIN, MAP ABOVE 60. TUBE FEEDS WERE STOPPED AT 2200. PARACENTISIS PUNCTURE SITE WAS LEAKING, DAVIS DRESSING AND MEPILEX WAS APPLIED. PT HAS BEEN HAVING LOOSE BM'S WITH MAYUR CLOTS. LAZAR IS PATENT AND DRAINING CLOUDY YELLOW URINE. WILL CONTINUE TO MONITOR PT UNTIL REPORT IS GIVEN TO ONCOMING SHIFT.
--- NOTE | 2019-11-09 07:29 | NUR ---
11/09/19 0729 Marisela Panda MAC CASE WITH DR. MARIE IN ICU 6. SEE ANESETHIA RECORD FOR CARE
--- NOTE | 2019-11-09 12:13 | NUR ---
REASSESSMENT PT HAD HER EGD THIS AM AND TOLERATED IT WELL. SHE HAS BEEN RESTING ON AND OFF SINCE, BUT IS AWAKE WHEN SPOKEN TO AND FOLLOWS COMMANDS. DOBHOFF WAS REMOVED DURING SCOPE, THEN ORDERS RECEIVED TO REPLACE IT AFTERWARDS. VERIFIED VIA XRAY AND THEN TUBE FEED RESTARTED PER DR. PETERS AFTER HE TALKED WITH DR. KELLY. LUNGS ARE CLEAR, RA. STILL REQUIRING LEVOPHED, TITRATING NEEDED. OCTREOTIDE AND PROTONIX STOPPED PER ORDERS. BOWEL TONES HYPERACTIVE. 1 MAROON COLORED LOOSE STOOL THIS AM. BOTTOM IS VERY EXCORIATED AND WEEPING. BARRIER CREAM APPLIED AND DRI TEZ UNDER PT TO TRY AND HELP KEEP SKIN DRY. PT'S MOM WAS UPDATED BY DR. KELLY AFTER SCOPE AND BY NURSING STAFF. CONTINUING TO MONITOR.
[2019-11-09 14:22] LABS: Hematocrit 18.6 % (33.0-51.0); Hemoglobin 6.3 g/dL (11.5-16.0)
--- NOTE | 2019-11-09 16:37 | NUR ---
SHIFT SUMMARY PT HAS BEEN RESTING IN BED THROUGHOUT THE DAY. SHE HAS HER EYES OPEN BUT DOESN'T INTERACT UNLESS DIRECTLY ASKED A QUESTION. HER LUNGS ARE CLEAR, RA. SR, STILL REQUIRING LEVOPHED, BUT TITRATED DOWN THROUGHOUT THE SHIFT. HYPERACTIVE BOWEL TONES, TOLERATING TF. BLOOD COUNTS DROPPED, 1 UNIT OF PRBC ORDERED BY DR. KAT. DR. PETERS NOTIFIED OF DROP WELL AND SAID HE WOULD PLACE ORDER FOR REPEAT LABS. PT IS STILL HAVING SOME BLOODY STOOLS, BUT JUST A SMEAR AT LAST CHANGE. LARGE AMT OF WEEPING FROM THE SKIN IN THE EMANI AREA AND SKIN IS VERY EXCORIATED. PT'S FAMILY HAS CALLED AND BEEN UPDATED THROUGHOUT THE DAY. CONTINUING TO MONITOR.
--- NOTE | 2019-11-09 17:46 | NUR ---
Pt mother at bedside visiting. Brief supportive visit and introduction of advance care planning for patient. Pt mother is 81 years old. she state that her and the patients sister darrion are decision maker. She states darrion is getting poa and will papers. opened conversation about plan of care and future needs and recussitaion. pt mother states Darrion help her with that. Gave her contact info for support advised we will be asking for decison if condition changes. Darrion returning in the next day or two will contact for assiting mother with plan of care.
--- NOTE | 2019-11-09 20:00 | NUR ---
ASSUMED CARE: PT AWAKE IN BED. NOT ANSWERING QUESTIONS, HOWEVER ATTEMPTS TO. SHE IS DROWSY. BP HAVE BEEN SOFT. SHE IS ON LEVOPHED AT 2MCG. SBP 100-110S. LUNG SOUNDS ARE CLEAR ON RA, SATTING >90%. DOBHOFF IN PLACE WITH VHP RUNNING AT 45MLS/HR. GOAL IS 60MLS/HR. PT IS HAVING ACTIVE SLOW STREAM OF BLOOD FROM RECTUM. SHE IS ALSO HAVING SMALL BLACK TARRY STOOLS. COCCYX IS RED. AREA BETWEEN THIGHS IS RED AND WEEPY. PT HAD A PARACENTESIS A COUPLE DAYS AGO. AREA IS STILL OOZING BLOOD. AREA CLEANED AND NEW MEPILEX PLACED. LAZAR IN PLACE. RIJ INFUSING WITH LEVOPHED, 1UPRBCS, NS TKO. WILL CONTINUE TO MONITOR
[2019-11-10 04:50] LABS: BASOPHILS ABSOLUTE AUTO 0.03 K/mm3 (0.00-0.23); BASOPHILS PERCENT AUTO 0 % (0-2); EOSINOPHILS PERCENT AUTO 0 % (0-6); Hematocrit 21.2 % (33.0-51.0); Hemoglobin 7.3 g/dL (11.5-16.0); IMMATURE GRAN ABSOLUTE AUTO 0.85 K/mm3 (0.00-0.10); IMMATURE GRAN PERCENT AUTO 4 % (0-1); LYMPHOCYTES ABSOLUTE AUTO 2.56 K/mm3 (0.84-5.20); LYMPHOCYTES PERCENT AUTO 13 % (21-46); MONOCYTES ABSOLUTE AUTO 1.23 K/mm3 (0.16-1.47); MONOCYTES PERCENT AUTO 6 % (4-13); Mean Corpuscular HGB 30.8 pg (26.0-34.0); Mean Corpuscular HGB Conc 34.4 g/dL (31.5-36.5); Mean Corpuscular Volume 90 fL (80-100); Mean Platelet Volume 11.8 fL (9.1-12.4); NEUTROPHILS ABSOLUTE AUTO 15.79 K/mm3 (1.96-9.15); NEUTROPHILS PERCENT AUTO 77 % (41-73); NRBC ABSOLUTE 0.35 K/mm3 (0.00-0.02); NRBC Auto 1.7 /100 WBC (0.0-0.2); Platelet Count 55 K/mm3 (150-400); RDW Coefficient Variation 17.5 % (11.7-14.2); RDW Standard Deviation 54.1 fL (35.1-46.3); Red Blood Cell Count 2.37 M/mm3 (3.80-5.20); White Blood Cell Count 20.46 K/mm3 (4.00-11.30)
[2019-11-10 05:02] LABS: International Normalized Ratio 2.18; Prothrombin Time Results 22.3 Sec (9.7-11.5)
[2019-11-10 05:04] LABS: Alanine Aminotransfer (ALT/SGP 39 U/L (12-78); Albumin, Blood 2.9 g/dL (3.4-5.0); Albumin/Globulin Ratio 1.4 (0.8-1.8); Alk Phos 168 U/L (50-136); Anion Gap 10 mmol/L (6-16); Aspartate Aminotrans (AST/SGOT 70 U/L (12-37); Bilirubin, Direct 3.1 mg/dL (0.0-0.3); Bilirubin, Indirect 2.7 mg/dL (0.1-0.7); Bilirubin, Total 5.8 mg/dL (0.1-1.0); Blood Urea Nitrogen 38 mg/dL (8-24); Bun/Creatinine Ratio 28.8 (12.0-20.0); CO2, Blood 23 mmol/L (21-32); Calcium, Blood 8.2 mg/dL (8.5-10.1); Chloride, Blood 107 mmol/L (98-108); Creatinine, Blood 1.32 mg/dL (0.40-1.00); Glomerular Filtration Rate 44 (60-); Glucose, Blood 160 mg/dL (70-99); Magnesium, Blood 2.2 mg/dL (1.6-2.4); Phosphorus, Blood 2.5 mg/dL (2.5-4.9); Potassium, Blood 2.9 mmol/L (3.5-5.5); Sodium, Blood 140 mmol/L (136-145); Total Protein, Blood 4.9 g/dL (6.4-8.2)
--- NOTE | 2019-11-10 05:35 | NUR ---
SHIFT SUMMARY: NO ACUTE CHANGES T/O SHIFT. LEVOPHED IS AT 1MCG. SBP IN THE 90S. PT HAD A MOD BM. K+ LOW THIS AM. ORDER RECEIVED FROM CHARLY FOR KCL 40 MEQS IV X 1 . WILL PASS REPORT TO ONCOMING SHIFT.
--- NOTE | 2019-11-10 11:00 | NUR ---
PT PULLED DOBHOFF TUBE OUT TO RIGHT NARES. NO RESP DIFFICULTY, REMOVED REMAINING TUBE, REPLACED WITH NEW DOBHOFF TUBE. PLACEMENT VERIFIED BY XRAY.
[2019-11-10 14:07] LABS: Hematocrit 22.4 % (33.0-51.0); Hemoglobin 7.7 g/dL (11.5-16.0)
--- NOTE | 2019-11-10 14:52 | NUR ---
RESTARTED TUBE FEEDING WITH PIVOT FEEDING, 45CC/HR. FLUSH 30CC Q4.
--- NOTE | 2019-11-10 17:39 | NUR ---
AM NOTE ASSUMED PT CARE. PT AROUSES TO VOICE, SLOW TO SPEAK AND IS ABLE TO ANSWER YES AND NO QUESTIONS ONLY. PT CONFUSED TO PLACE AND TIME OR SITUATION. IJ CENTRAL LINE INTACT, DOBHOFF INTACT. SKIN JAUNDICED AND MOTTLED IN AREAS WEEPING SEROSANGUINOUS FLUID FROM ABD AREA AND LOWER EXTREMETIES. LEVOPHED GTT OFF FROM PREVIOUS SHIFT. PT. TOLERATING AT THIS TIME.
--- NOTE | 2019-11-10 17:44 | NUR ---
SHIFT NOTE PT REMAINS SLOW TO RESPOND WITH SLOWED SPEECH. RESPONDING TO YES AND NO QUESTIONS ONLY. R IJ CENTRAL INTACT, DOBHOFF INTACT. LEVOPHED GTT REMOAINS ON STANDBY TODAY. LASIX GTT STARTED AND IS AT 40MG/HR. URINE OUTPUT POOR. SKIN JAUNDICED, CONTINUES TO WEEP SEROSANGUINOUS FLUID. RECTAL TUBE IN PLACE WITH DARK STOOLS WITH SOME BLOOD CLOTS. ANASARCA REMAINS.
--- NOTE | 2019-11-10 18:03 | NUR ---
NOTIFIED DR. PETERS PT'S URINE OUTPUT AT 30CC/HR AT THIS TIME WITH LASIX@20ML/HR. RECEIVED ORDER TO TITRATE LASIX TO MAX 120MG/HR AND START LEVOPHED TO 12MCG/HR TO INCREASE RENAL PERFUSION
--- NOTE | 2019-11-10 20:00 | NUR ---
ASSUMED CARE: PT WILL ANSWER Y/N QUESTIONS. SHE IS BACK ON LEVOPHED AT 3MCG (GOAL IS TO MAINTAIN KIDNEY PERFUSION WHILE PT IS ON LASIX GTT). SATTING WELL ON RA. PT HAS RECTAL TUBE IN PLACE. PT HAS DANA RED BLOOD OOZING FROM RECTUM AROUND TUBE. DOBHOFF IN PLACE WITH PIVOT AT 45MLS/HR. RIJ IN PLACE INFUSING WITH LASIX GTT AT 30MG/HR, NS TKO. LEVOPHED. LAZAR IN PLACE WITH SMALL AMT OF URINE OUTPUT. WILL CONTINUE TO MONITOR
[2019-11-11 04:30] LABS: BASOPHILS ABSOLUTE AUTO 0.03 K/mm3 (0.00-0.23); BASOPHILS PERCENT AUTO 0 % (0-2); EOSINOPHILS PERCENT AUTO 0 % (0-6); Hematocrit 20.8 % (33.0-51.0); Hemoglobin 7.1 g/dL (11.5-16.0); IMMATURE GRAN ABSOLUTE AUTO 1.06 K/mm3 (0.00-0.10); IMMATURE GRAN PERCENT AUTO 5 % (0-1); LYMPHOCYTES ABSOLUTE AUTO 2.29 K/mm3 (0.84-5.20); LYMPHOCYTES PERCENT AUTO 10 % (21-46); MONOCYTES PERCENT AUTO 6 % (4-13); Mean Corpuscular HGB 31.1 pg (26.0-34.0); Mean Corpuscular HGB Conc 34.1 g/dL (31.5-36.5); Mean Corpuscular Volume 91 fL (80-100); Mean Platelet Volume 13.2 fL (9.1-12.4); NEUTROPHILS ABSOLUTE AUTO 18.84 K/mm3 (1.96-9.15); NEUTROPHILS PERCENT AUTO 79 % (41-73); NRBC Auto 3.8 /100 WBC (0.0-0.2); Platelet Count 59 K/mm3 (150-400); RDW Coefficient Variation 18.1 % (11.7-14.2); RDW Standard Deviation 56.2 fL (35.1-46.3); Red Blood Cell Count 2.28 M/mm3 (3.80-5.20); White Blood Cell Count 23.72 K/mm3 (4.00-11.30)
[2019-11-11 04:44] LABS: International Normalized Ratio 2.07; Prothrombin Time Results 21.3 Sec (9.7-11.5)
[2019-11-11 04:50] LABS: Albumin, Blood 3.5 g/dL (3.4-5.0); Albumin/Globulin Ratio 1.8 (0.8-1.8); Bilirubin, Direct 2.8 mg/dL (0.0-0.3); Bilirubin, Indirect 2.1 mg/dL (0.1-0.7); Bilirubin, Total 4.9 mg/dL (0.1-1.0); Calcium, Blood 8.6 mg/dL (8.5-10.1); Creatinine, Blood 1.37 mg/dL (0.40-1.00); Globulin, Blood 1.9 g/dL (2.2-4.0); Magnesium, Blood 2.3 mg/dL (1.6-2.4); Phosphorus, Blood 2.4 mg/dL (2.5-4.9); Potassium, Blood 2.7 mmol/L (3.5-5.5); Total Protein, Blood 5.4 g/dL (6.4-8.2)
--- NOTE | 2019-11-11 06:04 | NUR ---
SHIFT SUMMARY: NO ACUTE CHANGES T/O SHIFT. STILL BLEEDING FROM RECTUM. STILL WEEPING BETWEEN THIGHS. SBP STABLE. LEVOPHED AT 2MCG. LASIX GTT TITRATED UNTIL URINE OUTPUT WAS BETWEEN 100-200MLS/HR. LASIX GTT CURRENTLY AT 30MG/HR OR 15MLS/HR. K+ LOW THIS AM. CALL PLACED TO CHARLY. ORDERS RECEIVED FOR KCL 40MEQ IV X 1. WILL PASS REPORT TO ONCOMING SHIFT
--- NOTE | 2019-11-11 07:30 | NUR ---
ASSUMED PT CARE PT AWAKE BUT DROWSY, CONTINUES TO ANSWER YES AND NO QUESTIONS AND SLOW TO ANSWER. SCLERA APPEAR MORE JAUNDICED. IV'S INFUSING THROUGH CENTRAL IJ. ANASARCA CONTINUES. LAZAR CATH IN PLACE, RECTAL TUBE IN PLACE DRAINING DARK STTOL WITH SOME BLOOD CLOTS.
[2019-11-11 15:14] LABS: Hematocrit 20.3 % (33.0-51.0)
--- NOTE | 2019-11-11 18:00 | NUR ---
PT ON FULL CARE. REMAINS DROWSY BUT EASILY AROUSABLE. SLOW TO ANSWER YES AND NO QUESTIONS. RIGHT IJ CENTRAL LINE PULLED TODAY, NO BLEEDING TO SITE, NO HEMATOMA. PICC LINE TO LEFT UPPER EXTREMITY INTACT INFUSING WELL. RENAL PERFUSION BETTER TODAY WITH GOOD URINARY OUTPUT. RECTAL TUBE INTACT DRAINING DARK STOOLS WITH MODERATE AMOUNT OF BLOOD CLOTS. ANASARCA THROUGHOUT. WEEPING FROM EXTREMETIES LESS TODAY THAN PREVIOUS.
--- NOTE | 2019-11-11 19:31 | NUR ---
INITAL SHIFT ASSESSMENT PT IS ALERT AT THIS TIME IN BED APPEARS TO BE WATCHING TV. SHE WILL ANSWER YES OR NO TO A FEW QUESTIONS, BUT OTHERWISE VERY WITHDRAWN. SHE WILL TRACK THIS RN IN ROOM WITH HER EYES. HER EXTREMITIES HAVE SO MUCH EDEMA THAT SHE IS UNABLE TO MOVE HERSELF VERY WELL AT ALL. EDEMA TO LEGS ARE WEAPING WITH ABSORBANT PADS IN PLACE. DOPPLERS TO HER FEET. SHE APPEARS TO BE COMFORTABLE AT THIS TIME. PT IS ON RA WITH NO SOB NOTED AT REST. PT HAS LAZAR CATH IN PLACE WELL RECTAL TUBE. URINE CLEAR YELLOW AND RECTAL OUTPUT IS MINIMAL BUT BROWN AT THIS TIME. DOBHOFF IN PLACE WITH PIVOT RUNNING AT 45ML/HR WHICH IS GOAL WITH H2O FLUSHES. PICC LINE TO LEFT UPPER ARM. DRESSING CDI. LEVOPHED GTT RUNNING AT 2MCG TO ASSIST PERFUSION. LASIX GTT AT 25MG/HR FOR URINE OUTPUT. WILL TITRATE ORDERED. SEE ICU FLOWSHEETS AND EMAR FOR ALL ADMINISTERED MEDICATIONS. WILL CON'T TO MONITOR AND KEEP PT SAFE T/O REMAINDER OF SHIFT.
[2019-11-12 03:51] LABS: BASOPHILS ABSOLUTE AUTO 0.02 K/mm3 (0.00-0.23); BASOPHILS PERCENT AUTO 0 % (0-2); EOSINOPHILS ABSOLUTE AUTO 0.13 K/mm3 (0.00-0.68); EOSINOPHILS PERCENT AUTO 1 % (0-6); Hematocrit 19.1 % (33.0-51.0); Hemoglobin 6.5 g/dL (11.5-16.0); IMMATURE GRAN ABSOLUTE AUTO 0.59 K/mm3 (0.00-0.10); IMMATURE GRAN PERCENT AUTO 3 % (0-1); LYMPHOCYTES PERCENT AUTO 10 % (21-46); MONOCYTES ABSOLUTE AUTO 0.86 K/mm3 (0.16-1.47); MONOCYTES PERCENT AUTO 5 % (4-13); Mean Corpuscular HGB 31.3 pg (26.0-34.0); Mean Corpuscular Volume 92 fL (80-100); Mean Platelet Volume 12.9 fL (9.1-12.4); NEUTROPHILS ABSOLUTE AUTO 15.54 K/mm3 (1.96-9.15); NEUTROPHILS PERCENT AUTO 82 % (41-73); NRBC ABSOLUTE 0.63 K/mm3 (0.00-0.02); NRBC Auto 3.3 /100 WBC (0.0-0.2); Platelet Count 58 K/mm3 (150-400); RDW Coefficient Variation 17.8 % (11.7-14.2); RDW Standard Deviation 55.7 fL (35.1-46.3); Red Blood Cell Count 2.08 M/mm3 (3.80-5.20); White Blood Cell Count 19.04 K/mm3 (4.00-11.30)
[2019-11-12 04:04] LABS: International Normalized Ratio 2.08; Prothrombin Time Results 21.4 Sec (9.7-11.5)
[2019-11-12 04:08] LABS: Albumin, Blood 3.6 g/dL (3.4-5.0); Albumin/Globulin Ratio 2.1 (0.8-1.8); Bilirubin, Total 4.2 mg/dL (0.1-1.0); Bun/Creatinine Ratio 41.7 (12.0-20.0); Calcium, Blood 8.6 mg/dL (8.5-10.1); Creatinine, Blood 1.27 mg/dL (0.40-1.00); Globulin, Blood 1.7 g/dL (2.2-4.0); Magnesium, Blood 2.1 mg/dL (1.6-2.4); Phosphorus, Blood 2.9 mg/dL (2.5-4.9); Potassium, Blood 2.5 mmol/L (3.5-5.5); Total Protein, Blood 5.3 g/dL (6.4-8.2)
--- NOTE | 2019-11-12 05:38 | NUR ---
SHIFT SUMMARY PT HAS RESTED OFF AND ON T/O SHIFT. SHE DID C/O PAIN THIS AM AND WAS GIVEN PAIN MEDS PRIOR TO TURN. OVERALL PT'S SPEECH IS CLEARING AND SHE IS ABLE TO ANSWER MORE QUESTIONS. ALSO SHE IS COMMUNICATING HER NEEDS BETTER AND MORE CLEARLY. SHE DOES HELP WITH TURNS WITH HER ARMS. VITALS ARE STABLE AT THIS TIME. DR DAMON ORDERED A UNIT OF PRBC'S TO BE ADMINISTERED THIS AM. GOOD URINE OUTPUT. LASIX GTT CON'T TO RUN AT 15MG. WILL CON'T TO MONITOR AND KEEP PT SAFE TILL REPORT TO ONCOMING RN.
--- NOTE | 2019-11-12 08:00 | NUR ---
ASSUMED CARE OF PT AT 0700. REPORT FROM SWEETIE WOLFF. PT WAKES c VERBAL STIMULI. TRACKS STAFF IN ROOM. SLOW TO ANSWER QUESTIONS. ORIENTED TO SELF, PLACE AND YEAR. DOES NOT FOLLOW DIRECTIONS. LOSES FOCUS DURING ASSESSMENT. CRACKLES THROUGHOUT LUNGS, DIMINISHED IN BASES. SHALLOW RESP. PT ON 2L O2 VIA NC. O2 SATS >95%. LEVOPHED INFUSING AT 2 MCG/MIN, LASIX INFUSING AT 15 MG/HR FOR GOAL URINARY OUTPUT 125 ML/HR. LAZAR PATENT, DRAINING CLEAR YELLOW URINE TO GRAVITY. ANASCARCA THROUGHOUT. 4+ WEEPING. EDEMA TO LOWER EXTREMITIES. ABD FIRM, DISTENDED, TENDER. HYPOACTIVE BT. TUBE FEEDING AT GOAL 45 ML/HR c 30 ML FLUSH q4. DOBHOFF IN PLACE. WILL CONTINUE TO MONITOR.
--- NOTE | 2019-11-12 15:37 | NUR ---
NEW POLST completed and signed by ICU staff sent copy to medical records for scanning into her medical record. POLST with chosen options of DNR, limited interventions per family wishes after conference this am. They do not want pt to have CPR or be intubated and feel this is what pt would want in light of her current health and chronic illness status.
--- NOTE | 2019-11-12 17:47 | NUR ---
SHIFT SUMMARY NO ACUTE CHANGES THIS SHIFT. PT CONTINUES TO BE SLOW TO RESPOND TO QUESTIONS, WITHDRAWN. A&OX 2. LASIX GTT INCREASED TO 25 MG/HR THIS SHIFT, URINARY OUTPUT 1200ML. LEVOPHED INFUSING AT 2 MCG/MIN. PT CONTINUES TO HAVE SIGNIFICANT EDEMA AND ANASCARCA, WEEPING EDEMA TO UPPER LEGS BILATERALLY. PERIAREA RED, BLEEDING. DRESSINGS PLACED. RECTAL TUBE IN PLACE, 650 ML OF BROWN LIQUID STOOL OUT. PT TRANSFUSED 1 UNIT PRBC THIS SHIFT. PT UP TO CHAIR FOR APPROX 2 HOURS. TURNS q2. CODE STATUS CHANGED TO DNR THIS SHIFT AFTER PALLATIVE CARE MET c FAMILY. PICC TO ALFONSO, DRESSING CHANGED. JAUNDICE WORSE THIS EVENING, SCLERA EDEMA PRESENT. ABD CONTINUES TO BE FIRM, TENDER. TUBE FEEDINGS CONTINUED. VSS. WILL CONTINUE TO MONITOR UNTIL REPORT TO ONCOMING NURSE.
--- NOTE | 2019-11-12 19:54 | NUR ---
ASSUMING CARE PATIENT IS IN BED RESTING. CALLING OUT AT TIMES. ANSWERING SOME QUESTIONS WITH VERY DELAYED RESPONSES. MOVES ALL EXTREMITIES TO COMMANDS. BEDSIDE CRUSHING MILL OPERATOR SHOWS NSR WITH A RATE IN THE 90S. BP STABLE. AFEBRILE. EXTENSIVE PITTING EDEMA TO BLE. PULSES IN BLE AUDIBLE VIA DOPPLER. LASIX DRIP INFUSING AT 25 MG/HR. LEVOPHED INFUSING AT 2 MCG/MIN. OXYGEN SATURATION STABLE ON 1 L NC. RR TACHYPNEIC IN THE 30S. DOBHOFF IN PLACE, 60 CM AT THE NARE. PIVOT TF RUNNING AT 45 MLS/HR. LAZAR CATHETER IN PLACE AND PATENT. PICC LINE IN PLACE AND INFUSING. CURTAIN OPEN FOR VISIBILITY.
--- NOTE | 2019-11-12 23:14 | NUR ---
UPDATE TO PROVIDER NOTIFIED PROVIDER OF CONTINUED TITRATION OF LASIX DRIP WITH NO IMPROVED EFFECT ON URINE OUTPUT. URINE OUTPUT CONTINUES TO AVERAGE ABOUT 75 MLS/HR. LASIX DRIP IS CURRENTLY AT 45 MG/HR. ORDER FROM PROVIDER TO NOT TITRATE LASIX ABOVE THE 45 MG/HR DUE TO CONCERN FOR HYPOKALEMIA. POTASSIUM REPLACEMENT IS ALMOST FINISHED. RECHECK ORDER ALREADY IN PLACE ONCE IT IS FINISHED.
[2019-11-13 04:53] LABS: BASOPHILS ABSOLUTE AUTO 0.02 K/mm3 (0.00-0.23); BASOPHILS PERCENT AUTO 0 % (0-2); EOSINOPHILS ABSOLUTE AUTO 0.21 K/mm3 (0.00-0.68); EOSINOPHILS PERCENT AUTO 1 % (0-6); Hematocrit 23.1 % (33.0-51.0); Hemoglobin 8.1 g/dL (11.5-16.0); IMMATURE GRAN ABSOLUTE AUTO 0.34 K/mm3 (0.00-0.10); IMMATURE GRAN PERCENT AUTO 2 % (0-1); LYMPHOCYTES ABSOLUTE AUTO 1.83 K/mm3 (0.84-5.20); LYMPHOCYTES PERCENT AUTO 9 % (21-46); MONOCYTES ABSOLUTE AUTO 1.19 K/mm3 (0.16-1.47); MONOCYTES PERCENT AUTO 6 % (4-13); Mean Corpuscular HGB 32.1 pg (26.0-34.0); Mean Corpuscular HGB Conc 35.1 g/dL (31.5-36.5); Mean Corpuscular Volume 92 fL (80-100); Mean Platelet Volume 12.1 fL (9.1-12.4); NEUTROPHILS ABSOLUTE AUTO 17.56 K/mm3 (1.96-9.15); NEUTROPHILS PERCENT AUTO 83 % (41-73); NRBC ABSOLUTE 0.22 K/mm3 (0.00-0.02); Platelet Count 53 K/mm3 (150-400); RDW Standard Deviation 51.8 fL (35.1-46.3); Red Blood Cell Count 2.52 M/mm3 (3.80-5.20); White Blood Cell Count 21.15 K/mm3 (4.00-11.30)
[2019-11-13 05:06] LABS: International Normalized Ratio 1.83; Prothrombin Time Results 18.9 Sec (9.7-11.5)
[2019-11-13 05:09] LABS: Alanine Aminotransfer (ALT/SGP 43 U/L (12-78); Albumin/Globulin Ratio 1.5 (0.8-1.8); Alk Phos 296 U/L (50-136); Anion Gap 7 mmol/L (6-16); Aspartate Aminotrans (AST/SGOT 71 U/L (12-37); Bilirubin, Total 4.5 mg/dL (0.1-1.0); Blood Urea Nitrogen 62 mg/dL (8-24); Bun/Creatinine Ratio 51.7 (12.0-20.0); CO2, Blood 27 mmol/L (21-32); Calcium, Blood 8.7 mg/dL (8.5-10.1); Chloride, Blood 112 mmol/L (98-108); Glomerular Filtration Rate 50 (60-); Glucose, Blood 156 mg/dL (70-99); Magnesium, Blood 2.2 mg/dL (1.6-2.4); Phosphorus, Blood 3.7 mg/dL (2.5-4.9); Potassium, Blood 3.2 mmol/L (3.5-5.5); Sodium, Blood 146 mmol/L (136-145)
--- NOTE | 2019-11-13 06:00 | NUR ---
END OF SHIFT SUMMARY PATIENT REMAINS LETHARGIC. FOLLOWING COMMANDS. COMPLAINTS OF GENERALIZED PAIN. FENTANYL GIVEN PER EMAR. BP MARGINAL AT TIMES THIS SHIFT, BUT MAP MAINTAINED GREATER THAN 65 FOR MOST OF THE NIGHT. AFEBRILE. NSR. PITTING EDEMA TO BLE, WEEPY. FINE CRACKLES AUSCULTATED IN THE LUNGS. TOLERATING 1 L NC WELL. ABDOMEN REMAINS DISTENDED AND TENDER. HYPOACTIVE BOWEL TONES. LAZAR REMAINS IN PLACE. LASIX DRIP CONTINUES, TITRATED UP TO 40 MG/HR TO ATTEMPT TO MAINTAIN GOAL OF 125 ML OF URINE OUTPUT AN HOUR. POTASSIUM CONTINUES TO REMAIN LOW. WILL REPLACE PER ICU ELECTROLYTE PROTOCOL.
--- NOTE | 2019-11-13 08:00 | NUR ---
ASSUMED CARE OF PT AT 0700. REPORT FROM JOSÉ MIGUEL WOLFF. PT WAKES c VERBAL STIMULI. FOLLOWS SIMPLE DIRECTIONS. PT VERY SLOW TO RESPOND. ORIENTED TO SELF, PLACE AND YEAR. LUNGS DIMINISHED c CRACKLES THROUGHOUT. NONPRODUCTIVE WEAK COUGH. PT ON 2L O2 VIA NC. PT JAUNDICE, SCLERA YELLOW AND EDEMATOUS. SCATTERED BRUISING THROUGHOUT BODY. ABD FIRM, DISTENDED, TENDER. BT X 4. PIVOT TUBE FEED AT GOAL OF 45 ML/HR c 30ML FLUSHES q4 VIA DOBHOFF. LAZAR PATENT, DRAINING CLEAR YELLOW URINE TO GRAVITY. LASIX GTT AT 45 ML/HR FOR GOAL URINARY OUTPUT OF 125 ML/HR. LEVOPHED GTT AT 2 MCG/MIN FOR KIDNEY PERFUSION. K RIDER INFUSING. RECTAL TUBE PATENT, DRAINING LIQUID BROWN STOOL TO GRAVITY. WEEPING 4+ EDEMA TO BLE. PERIAREA RED, BLEEDING AND EXCORATED. DRESSINGS IN PLACE. WILL TURN q2. VSS. WILL CONTINUE TO MONITOR.
--- NOTE | 2019-11-13 18:17 | NUR ---
SHIFT SUMMARY NO ACUTE CHANGES THIS SHIFT. LASIX GTT AT 45 MG/HR (MAX RATE PER DR HARMON), LEVOPHED AT 2 MCG/MIN (TITRATE FOR MAP>65). PT REMAINS SLOW TO RESPOND, ANSWERS YES/NO QUESTIONS, FOLLOWS SIMPLE COMMANDS. LUNGS DIMINISHED. REMAINS ON 2L O2 VIA NC. LAZAR PATENT, DRAINING CLOUDY YELLOW URINE c SEDIMENT, 1200 ML OUT THIS SHIFT. RECTAL TUBE DRAINING LIQUID BROWN STOOL, 100 ML OUT THIS SHIFT. TUBE FEEDS CONTINUE AT GOAL. PERIAREA CONTINUES TO BE RED, EXCORATED. TURNS q2 c DRIFLOW CHANGES D/T WEEPING EDEMA. ABD PADS PLACED TO INCREASE ABSORPTION. WILL CONTINUE TO MONITOR UNTIL REPORT TO ONCOMING NURSE.
[2019-11-14 03:12] LABS: BASOPHILS ABSOLUTE AUTO 0.02 K/mm3 (0.00-0.23); BASOPHILS PERCENT AUTO 0 % (0-2); EOSINOPHILS ABSOLUTE AUTO 0.25 K/mm3 (0.00-0.68); EOSINOPHILS PERCENT AUTO 1 % (0-6); Hematocrit 24.2 % (33.0-51.0); Hemoglobin 8.1 g/dL (11.5-16.0); IMMATURE GRAN ABSOLUTE AUTO 0.18 K/mm3 (0.00-0.10); IMMATURE GRAN PERCENT AUTO 1 % (0-1); LYMPHOCYTES ABSOLUTE AUTO 2.03 K/mm3 (0.84-5.20); LYMPHOCYTES PERCENT AUTO 11 % (21-46); MONOCYTES ABSOLUTE AUTO 1.47 K/mm3 (0.16-1.47); MONOCYTES PERCENT AUTO 8 % (4-13); Mean Corpuscular HGB 31.2 pg (26.0-34.0); Mean Corpuscular HGB Conc 33.5 g/dL (31.5-36.5); Mean Corpuscular Volume 93 fL (80-100); NEUTROPHILS ABSOLUTE AUTO 14.49 K/mm3 (1.96-9.15); NEUTROPHILS PERCENT AUTO 79 % (41-73); NRBC ABSOLUTE 0.06 K/mm3 (0.00-0.02); NRBC Auto 0.3 /100 WBC (0.0-0.2); Platelet Count 56 K/mm3 (150-400); RDW Coefficient Variation 20.3 % (11.7-14.2); White Blood Cell Count 18.44 K/mm3 (4.00-11.30)
[2019-11-14 03:14] LABS: Mean Platelet Volume 12.8 fL (9.1-12.4)
[2019-11-14 03:24] LABS: International Normalized Ratio 1.66; Prothrombin Time Results 17.3 Sec (9.7-11.5)
[2019-11-14 03:29] LABS: Albumin, Blood 2.9 g/dL (3.4-5.0); Albumin/Globulin Ratio 1.3 (0.8-1.8); Bilirubin, Total 4.6 mg/dL (0.1-1.0); Bun/Creatinine Ratio 64.3 (12.0-20.0); Calcium, Blood 8.7 mg/dL (8.5-10.1); Creatinine, Blood 1.12 mg/dL (0.40-1.00); Globulin, Blood 2.2 g/dL (2.2-4.0); Phosphorus, Blood 3.9 mg/dL (2.5-4.9); Potassium, Blood 3.7 mmol/L (3.5-5.5); Total Protein, Blood 5.1 g/dL (6.4-8.2)
--- NOTE | 2019-11-14 09:23 | NUR ---
PT REMAINS SLOW TO VERBAL RESPONSES BUT RESPONSES COMPARED TO REPORT ARE NOT SLOW AND IS SPEAKING IN FULL BUT SHORT SENTENCES. PT IS VERY WEAK EVEN IN VOICE AND IS C/O PAIN IN BUTTOCKS WHICH IS OOZING AND QUITE RAW. IV GTTS NOTED, SEE FLOWSHEET. PT WILL FOLLOW COMMANDS TO WEDDING CONSULTANT AND RAISE HEAD, BUT VERY WEAK. URINE PER LAZAR IS MARGINALLY CLOSE TO REQUESTED PARAMETERS, WILL FOLLOW.
--- NOTE | 2019-11-14 10:43 | NUR ---
Case Conference Note Spoke with Dr Dawson and Bedside RN Raghu. Discussed case. Dr Dawson reports Pt is showing small improvements from liver standpoint. Reviewed plan of care and Palliative Care will remain available for supportive visits as needed.
--- NOTE | 2019-11-14 18:12 | NUR ---
PT HAS REMAINED GENERALLY ALERT AND WILLING TO COMMUNICATE BUT HAS BEEN QUITE FATIGUED AFTER P.T. VISIT AND UNWILLING/ UNABLE TO DO ANYTHING EXTRA IN REGARDS TO PHYSICAL ACTIVITY. PT HAS BEEN TURNED AND HAS ASSISTED WTIH TURNED BUT DECLINED TO GET OOB AFTER P.T. VS REMAINS UNCHANGED WITH LEVOPHED GTT YET AT 3 MCG AND LASIX ALSO UNCHANGED AT 45MG/HR AND I/O NOTED. PT IS ABLE TO TAKE PO WITH HOB ELEVATED IN REVERSE TREND. POSITION. BUTTOCKS WOUNDS HAVE CONT TO WEEP AND HAVE REQUIRED ABD CHANGED WITH EACH TURN THEY ARE SATURATED.
--- NOTE | 2019-11-14 20:35 | NUR ---
ASSUMPTION OF CARE PT AWAKE IN BED, ORIENTED TO SELF, LOCATION AND FOLLOWING DIRECTIONS, PT IS VERY SLOW TO RESPOND, FLAT/WITHDRAWN AFFECT. PT REQUESTS SIPS OF WATER, HOLDS CUP INDEPENDENTLY. O2 SATURATIONS>95% ON RA, MONITOR SHOWS SINUS RHYTHM WITH HR 90'S-105, BP SOFT WITH SBP 80'S-90'S, MAPS>60, LEVO GTT INF @ 3 AND LASIX GTT INF @ 45mg/hr, SEE FLOWSHEET FOR TITRATIONS. ABD PADS TO EMANI AREA CHANGED AT BEGINNING OF SHIFT. DOBHOFF IN PLACE, TF INF @ GOAL RATE OF 45ml/hr WITH 30ml Q4H WATER FLUSH. LAZAR IN PLACE, HOURLY OUTPUT MONITORING. RECTAL TUBE IN PLACE DRAINING LIQUID BROWN STOOL. PT MOVES ALL EXTREMETIES IN BED, ATTEMPTS TO ASSIST WITH TURNS BUT IS VERY WEAK.
[2019-11-15 03:42] LABS: BASOPHILS ABSOLUTE AUTO 0.02 K/mm3 (0.00-0.23); BASOPHILS PERCENT AUTO 0 % (0-2); EOSINOPHILS ABSOLUTE AUTO 0.24 K/mm3 (0.00-0.68); EOSINOPHILS PERCENT AUTO 2 % (0-6); Hematocrit 25.8 % (33.0-51.0); Hemoglobin 8.5 g/dL (11.5-16.0); IMMATURE GRAN ABSOLUTE AUTO 0.15 K/mm3 (0.00-0.10); IMMATURE GRAN PERCENT AUTO 1 % (0-1); LYMPHOCYTES ABSOLUTE AUTO 2.26 K/mm3 (0.84-5.20); LYMPHOCYTES PERCENT AUTO 14 % (21-46); MONOCYTES ABSOLUTE AUTO 1.53 K/mm3 (0.16-1.47); MONOCYTES PERCENT AUTO 9 % (4-13); Mean Corpuscular HGB Conc 32.9 g/dL (31.5-36.5); Mean Corpuscular Volume 94 fL (80-100); NEUTROPHILS ABSOLUTE AUTO 12.32 K/mm3 (1.96-9.15); NEUTROPHILS PERCENT AUTO 75 % (41-73); NRBC ABSOLUTE 0.03 K/mm3 (0.00-0.02); NRBC Auto 0.2 /100 WBC (0.0-0.2); Platelet Count 66 K/mm3 (150-400); RDW Coefficient Variation 21.3 % (11.7-14.2); RDW Standard Deviation 53.2 fL (35.1-46.3); Red Blood Cell Count 2.74 M/mm3 (3.80-5.20); White Blood Cell Count 16.52 K/mm3 (4.00-11.30)
[2019-11-15 03:44] LABS: Mean Platelet Volume 12.7 fL (9.1-12.4)
[2019-11-15 03:54] LABS: International Normalized Ratio 1.57; Prothrombin Time Results 16.4 Sec (9.7-11.5)
[2019-11-15 03:59] LABS: Albumin, Blood 2.7 g/dL (3.4-5.0); Bilirubin, Total 4.7 mg/dL (0.1-1.0); Bun/Creatinine Ratio 72.4 (12.0-20.0); Calcium, Blood 8.9 mg/dL (8.5-10.1); Creatinine, Blood 1.05 mg/dL (0.40-1.00); Globulin, Blood 2.7 g/dL (2.2-4.0); Potassium, Blood 3.6 mmol/L (3.5-5.5); Total Protein, Blood 5.4 g/dL (6.4-8.2)
[2019-11-15 04:13] LABS: BAND PERCENT MAN 3 % (0-8); BASOPHILS PERCENT MAN 0 % (0-2); EOSINOPHILS ABSOLUTE MAN 0.49 K/mm3 (0.00-0.68); EOSINOPHILS PERCENT MAN 3 % (0-6); LYMPHOCYTES ABSOLUTE MAN 1.81 K/mm3 (0.84-5.20); LYMPHOCYTES PERCENT MAN 11 % (21-46); METAMYELOCYTE ABSOLUTE MAN 0.99 K/mm3 (0.00-0.00); METAMYELOCYTE PERCENT MAN 6 % (0-0); MONOCYTES ABSOLUTE MAN 0.49 K/mm3 (0.16-1.47); MONOCYTES PERCENT MAN 3 % (4-13); NEUTROPHILS ABSOLUTE MAN 12.72 K/mm3 (1.96-9.15); SEG NEUTROPHILS PERCENT MAN 74 % (41-73); TOTAL CELLS COUNTED 35
--- NOTE | 2019-11-15 05:58 | NUR ---
SHIFT SUMMARY NO ACUTE CHANGES T/O NIGHT, LASIX GTT TITRATED TO 35mg/hr, LEVO TITRATED TO 2mcg/min. PT REMAINS ON RA WITH O2 SATURATIONS> 90%. PT UP TO CHAIR LAST NOC PER REQUEST, TOLERATED WELL. PT MAKES FREQUENT REQUESTS FOR WATER, TOLERATING WELL. PT CONTINUES TO HAVE SIGNIFICANT WEEPING FROM BUTTOCK WOUNDS, ABD PADS AND DRY FLOW CHANGED WITH TURNS.
--- NOTE | 2019-11-15 08:45 | NUR ---
ASSUMED CARE / DR PARKS: REPORT RECEIVED FROM CASH Darby RN. ASSUMED CARE OF THIS PT AT APPROX 0700. ON ASSESSMENT, THE PT IS RESTING QUIETLY. LASIX & LEVOPHED DRIPS INFUSING PER EMAR - TITRATION IN FLOWSHEET. VSS. LAZAR PATENT/ DRAINING CLEAR YELLOW URINE. RECTAL TUBE IN PLACE DRAINING BROWN LIQUID STLS. SKIN CONDITION ON BUTTOCKS DOCUMENTED W/ PHOTOS IN CHART. Q2H REPOSITIONING TO PREVENT FURTHER BREAKDOWN. PROVIDER AT BEDSIDE TO EVAL PT. SHE WOULD LIKE THIS RN TO CONSULT WATCH ADJUSTER TO DETERMINE IF SPEECH THERAPY EVAL IS YET APPROPRIATE FOR THIS PT. DISCUSSED PT's STABLE CBGs & REQUESTED TO D/C ORDER, SHE STS THIS IS OKAY. WILL CONTINUE TO MONITOR & UPDATE NEEDED.
--- NOTE | 2019-11-15 10:55 | NUR ---
Review of pt with nursing. continues on low dose pressors and lasix. will reamin available to family for support.
--- NOTE | 2019-11-15 16:50 | NUR ---
Spiritual care note: Marina is quite slow to respond. She thought her bf Ethan was in the room. When asked if she knew why she was hospitalized she said very slowly, "I have to stay away from Ethan." She told me her belly hurt. RN informed and attentive. She did agree to let me pray for her, but she appeared to fall asleep as I prayed. I will remain available to pt and family.
--- NOTE | 2019-11-15 19:06 | NUR ---
SHIFT SUMMARY: NO ACUTE CHANGES SINCE PRIOR UPDATES. MENTATION CONTINUES IMPROVING & PT IS ANSWERING MORE QUESTIONS APPROPRIATELY. ASSESSMENT OVERALL UNCHANGED. PT ON RA W/ O2 SATS >92%. BP STABLE W/ LEVOPHED DRIP PER EMAR. LAZAR PATENT/ DRAINING CLEAR YELLOW URINE, LASIX DRIP TITRATION IN FLOWSHEET. RECTAL TUBE PATENT/ DRAINING DARK BROWN LIQUID STLS. DRESSINGS TO BUTTOCKS CHANGED W/ Q2H REPOSITIONING. EDEMA IMPROVING T/O. WILL CONTINUE TO MONITOR & REPORT OFF TO ONCOMING RN.
--- NOTE | 2019-11-15 21:10 | NUR ---
ASSUMPTION OF CARE PT SITTING IN CHAIR, DENIES ANY PAIN/DISCOMFORT, ORIENTED TO SELF AND FOLLOWING DIRECTIONS, WHEN ASKED WHERE THE PATIENT IS AT PT ANSWERS WITH "IN A CHAIR" BUT IS UNABLE TO [place] OR FACILITY, PT REQUESTS TO GO BACK TO BED AND STS "I THINK I GET THERE" ASSURED PT THAT NURSING STAFF WOULD ASSIST PT BACK TO BED USING CEILING LIFT. O2 SATURATIONS>90% ON RA, MONITOR SHOWS SINUS RHYTHM, MAPS>60 WITH LEVO GTT @ 2, LASIX GTT INFUSING AND TITRATING FOR GOAL URINE OUTPUT OF 125ml/hr. RECTAL TUBE IN PLACE DRAINING BROWN LIQUID/LOOSE STOOL. SKIN AROUND BUTTOCKS EXTREMELY EXCORIATED, ABD PADS CHANGED WITH TURNS.
--- NOTE | 2019-11-15 23:16 | NUR ---
PT REPORTING ABDOMINAL PAIN, PRN PAIN MEDICATIONS PROVIDED, REPOSITIONED PT AND ENCOURAGED PT TO SLEEP. ASSISTED PT WITH TURNING ON CLASSICAL MUSIC ON TELEVISON, ADJUSTED VOLUME DESIRED BY PT. DISCUSSED SCD'S WITH PT, PT AGREES TO TRY WEARING THEM, PT QUICKLY REPORTED SCD'S WERE SQUEEZING TOO TIGHTLY, SCD'S REMOVED PER PT REQUEST AND TO ENCOURAGE SLEEP. DIMMED LIGHTS IN ROOM, CALL LIGHT WITHIN REACH.
[2019-11-16 06:04] LABS: BASOPHILS ABSOLUTE AUTO 0.03 K/mm3 (0.00-0.23); BASOPHILS PERCENT AUTO 0 % (0-2); EOSINOPHILS ABSOLUTE AUTO 0.28 K/mm3 (0.00-0.68); EOSINOPHILS PERCENT AUTO 2 % (0-6); Hematocrit 25.8 % (33.0-51.0); Hemoglobin 8.5 g/dL (11.5-16.0); IMMATURE GRAN ABSOLUTE AUTO 0.11 K/mm3 (0.00-0.10); IMMATURE GRAN PERCENT AUTO 1 % (0-1); LYMPHOCYTES ABSOLUTE AUTO 2.35 K/mm3 (0.84-5.20); LYMPHOCYTES PERCENT AUTO 16 % (21-46); MONOCYTES ABSOLUTE AUTO 1.65 K/mm3 (0.16-1.47); MONOCYTES PERCENT AUTO 11 % (4-13); Mean Corpuscular HGB 31.4 pg (26.0-34.0); Mean Corpuscular HGB Conc 32.9 g/dL (31.5-36.5); Mean Corpuscular Volume 95 fL (80-100); NEUTROPHILS PERCENT AUTO 71 % (41-73); NRBC ABSOLUTE 0.03 K/mm3 (0.00-0.02); NRBC Auto 0.2 /100 WBC (0.0-0.2); Platelet Count 71 K/mm3 (150-400); RDW Standard Deviation 54.1 fL (35.1-46.3); Red Blood Cell Count 2.71 M/mm3 (3.80-5.20); White Blood Cell Count 15.12 K/mm3 (4.00-11.30)
--- NOTE | 2019-11-16 06:06 | NUR ---
SHIFT SUMMARY NO ACUTE CHANGES THIS SHIFT, PT SLEPT FOR A FEW HOURS THIS SHIFT, MILD CONFUSION REMAINS, BUT PT IS CALM, COOPERATIVE AND FOLLOWING DIRECTIONS. LEVO AND LASIX GTT INFUSING, SEE FLOWSHEET FOR TITRATIONS. LASIX GTT INCREASED TO 45mg/hr. PT CONTINUES TO ASSIST IN CARE, ABD AND DRY FLOW PADS SATURATED AND CHANGED WITH TURNS. LAZAR IN PLACE WITH HOURLY OUTPUT MONITORING.
[2019-11-16 06:19] LABS: Mean Platelet Volume 13.8 fL (9.1-12.4)
[2019-11-16 06:26] LABS: Albumin, Blood 2.6 g/dL (3.4-5.0); Bilirubin, Total 4.2 mg/dL (0.1-1.0); Bun/Creatinine Ratio 79.6 (12.0-20.0); Calcium, Blood 9.1 mg/dL (8.5-10.1); Creatinine, Blood 1.03 mg/dL (0.40-1.00); Magnesium, Blood 2.4 mg/dL (1.6-2.4); Phosphorus, Blood 4.8 mg/dL (2.5-4.9); Potassium, Blood 3.7 mmol/L (3.5-5.5)
[2019-11-16 06:27] LABS: Albumin/Globulin Ratio 0.9 (0.8-1.8); Globulin, Blood 2.9 g/dL (2.2-4.0); Total Protein, Blood 5.5 g/dL (6.4-8.2)
--- NOTE | 2019-11-16 08:30 | NUR ---
INITIAL ASSESSMENT PATIENT LYING IN BED WATCHING TV ON MUTE UPON NURSE ENTERING ROOM. PATIENT FLAT, WITHDRAWN. PATIENT ONLY ORIENTED TO SELF AND FOLLOWING SIMPLE COMMANDS. PATIENT BELIEVES SHE IS SEEING THINGS UNDERNEATH HER BED THAT ARE NOT THERE. PATIENT SLOW TO RESPOND. PATIENT DOES NOT ANSWER ALL OF NURSE'S QUESTIONS. PATIENT AFEBRILE. PATIENT COMPLAINS OF LUQ THROBBING PAIN. SCLERA JAUNDICED. PATIENT WEAK, ESPECIALLY IN BLES. PATIENT SATTING 90% AND GREATER ON RA. LUNGS CLEAR. PATIENT IN SR, HR IN THE 90S. SBP 80S TO 90S. LEVOPHED INFUSING AT 2 MCG/ MINUTE. PATIENT RECEIVING SCHEDULED MIDODRINE. PATIENT REFUSES SCDS. PITTING EDEMA NOTED IN BLES. ABDOMEN MODERATELY DISTENDED, FIRM, TENDER, GUARDED, WITH HYPOACTIVE BS NOTED. RECTAL TUBE IN PLACE DRAINING BROWN, LIQUID STOOL. DOBHOFF IN PLACE. PIVOT 1.5 INFUSING AT GOAL RATE OF 45 MLS/ HOUR WITH 30 ML WATER FLUSH Q4H. LAZAR IN PLACE; DRAINING DARK YELLOW COLORED URINE WITH SEDIMENT NOTED. LASIX DRIP INFUSING AT 45 MG/ HOUR. ORDER TO TITRATE LASIX DRIP TO KEEP URINE OUTPUT 125 MLS/ HOUR MINIMUM. PATIENT'S BUTTOCKS, EMANI AND GROIN AREA REDDENED, MOIST, MACERATED AND EXCORIATED. PETECHIAE NOTED TO CHEST. SCATTERED BRUISES NOTED. SKIN JAUNDICED. NS TKO. BED LOW, CALL LIGHT IN REACH. WILL CONTINUE TO MONITOR PATIENT FREQUENTLY THROUGHOUT SHIFT.
--- NOTE | 2019-11-16 09:53 | NUR ---
DR. BARTLETT INFORMED OF SODIUM OF 150 MLS/ HOUR. DOCTOR INFORMED OF POTASSIUM OF 5.6 AND THAT PATIENT ON PT REPLACEMENT TWICE PER DAY. ORDERS RECEIVED.
--- NOTE | 2019-11-16 12:00 | NUR ---
DR. BARTLETT INFORMED THAT PATIENT'S ABDOMEN FEELS TIGHT/ FIRM AND PATIENT CONTINUES TO COMPLAIN OF LUQ PAIN. CAME TO LOOK. STATED HE WILL PUT ORDERS IN.
--- NOTE | 2019-11-16 13:00 | NUR ---
PATIENT REMAINS AFEBRILE. PATIENT CONTINUES TO COMPLAINS ABOUT PAIN IN ABDOMEN LUQ. HR 90S TO LOW 100S. SBP 80S TO 90S. LEVOPHED AT 3 MCG/ MINUTE. LASIX INFUSING AT 40 MG/ HOUR AND TO REMAIN AT THIS SET RATE. TF FLUSH AT AT 100 MLS Q4H; INCREASED FROM THIS AM FOR SODIUM OF 150 THIS AM. PATIENT RECEIVED COMPLETE BED BATH AND USED CEILING LIFT TO GET TO CHAIR. WILL CONTINUE TO MONITOR.
[2019-11-16 15:43] LABS: Automated BF RBC Count 0.003 M/mm3 (0-0); Automated BF WBC Count 0.086 K/mm3 (0-999); Body Fluid WBC Count 86 /mm3 (0-999); RBC Count, Body Fluid 3000 /mm3 (0-0)
[2019-11-16 16:13] LABS: Glucose, Body Fluid 135 mg/dL; Lactate Dehydrogenase, Body Fl 118 U/L
--- NOTE | 2019-11-16 16:20 | NUR ---
PATIENT REMAINS AFEBRILE. HR 90S TO LOW 100S. SBP 80S TO LOW 100S. LEVOPHED INFUSING AT 5 MCG/ MINUTE.
[2019-11-16 16:28] LABS: Total Cell Count, Body Fluid 100
[2019-11-16 16:29] LABS: Appearance, Body Fluid Hazy (Clear); Color, Body Fluid Yellow (None-Yellow)
--- NOTE | 2019-11-16 16:35 | NUR ---
Pal care visit - Returned to ICU when pt's mom arrived. She is encouraged by her daughters improvement. Pt is tremulous and appears frightened and anxious. She had 6+ liters of fluid removed from her abdomen today. She is speaking very softly to her mom, barely audible. She reports being cold and extremities are extremely cold to the touch. [place] used to cover her. She has 4+ pitting edema and reports pain with palpating lower extremities/checking for edema/pitting. She has been in her chair and wants to get out of her chair. Pt stated, "I'm getting out of this chair right now" but is unable to. Pt's mom stated "if by some miracle she survives all this, she'll never be able to be on her own". Pt's mentation is extremely altered. She is slow to respond and sometimes stops mid sentance and stops talking all together. It appears that she realizes that what she is saying may not make sense and then she is quiet for a long time. Mom reports that Marina's alertness and interaction is improved from last week. She understands from her Drs that she has improved overall. She asked if she was getting IV nutrition and I showed her the dobhoff for NG feeding, IV for fluids and many medications. Mom and pt's sister, Lilly, appear to be continuing to hope for recovery at this time. She had no questions for me. I let RN know that pt would like to have a position change from reclined chair to bed when possible. Plan to continue supportive visits. I think family would benefit from an overall prognosis on recovery & return to independence as well as what pt's anticipated longterm care needs may be from pt's drs.
[2019-11-16 17:00] LABS: Protein, Body Fluid 1.6 g/dL
--- NOTE | 2019-11-16 19:23 | NUR ---
SHIFT SUMMARY PATIENT REMAINED FLAT AND WITHDRAWN. PATIENT REMAINED ONLY ALERT TO HERSELF AND FOLLOWING COMMANDS. PATIENT DID MAKE SMALL TALK OCCASIONALLY DURING THE DAY. PATIENT REMAINED AFEBRILE. PATIENT GIVEN PRN PAIN MEDICATION FOR COMPLAINT OF LUQ PAIN DURING SHIFT. PAIN SEEMED TO HAVE IMPROVED AFTER PATIENT TAPPED AND 6.2 L TAKEN OFF. PATIENT REMAINED SATTING 90% AND GREATER ON RA. PATIENT REMAINED IN SR WITH PVCS. HR 90S TO LOW 100S. SBP 70S WHEN PATIENT UP TO CHAIR. OTHERWISE SBP 90S TO LOW 100S. ABDOMEN FIRM AT BEGINNING OF SHIFT; LESS FIRM AND LESS GUARDED AFTER PARACENTESIS. PATIENT HAD 600 MLS OF BROWN, LIQUID STOOL OUT IN RECTAL TUBE. TF REMAINS AT GOAL RATE. FREE WATER FLUSH INCREASED FROM 30 MLS TO 100 MLS EVERY 4 HOURS FOR HIGH SODIUM OF 150. LASIX CHANGED FROM TITRATE TO SET RATE OF 40 MG/ HOUR TODAY. PADS IN MACERATED AREAS OF SKIN CHANGED Q2H WHEN PATIENT REPOSITIONED. LAST CHANGE SEROSANGUINIOUS FLUID SEEMED TO BE FINALLY DECREASING IN AMOUNT. LEVOPHED RANGED FROM 2 TO 5 MCG/ MINUTE; CURRENTLY AT 5. PATIENT OOB TO CHAIR AND GIVEN COMPLETE BED BATH THIS SHIFT. PATIENT GIVEN ALBUMIN X 2 BOTTLES THIS SHIFT AFTER PARACENTESIS. BED LOW, CALL LIGHT IN REACH. NO COMPLAINTS AT THIS TIME. REPORT HAS BEEN GIVEN TO ASSUMING JOGGLE PRESS OPERATOR NURSE.
--- NOTE | 2019-11-16 21:21 | NUR ---
ASSUMPTION OF CARE PT IN BED. DENIES ANY PAIN OR DISCOMFORT AT THIS TIME. PT ORIENTED TO PERSON BUT UNSURE OF PLACE, BELIEVES SHE MAY BE IN A HOSPITAL BUT UNSURE OF WHICH ONE. LS CLEAR, O2 SATS >95% ON RA. SINUS/ SINUS TACH ON THE FAN INSTALLER. LEVOPHED GTT @ 5 WITH MAP >60. DOBHOFF WITH PIVOT 1.5 @ GOAL RATE OF 45ML/HR. ABD FIRM, TENDER TO LUQ UPON PALPATION, STATES "IT FEELS BETTER THAN EARLIER". LAZAR CATHETER PATENT, DRAINING YELLOW URINE. LASIX @40MG/HR WITH GOAL OF 30ML/HR URINE OUTPUT. RECTAL TUBE IN PLACE, DRAINING BROWN, LIQUID STOOL. SKIN AROUND THE BUTTOCKS EXCORIATED AND PAINFUL, ABD PADS CHANGED AROUND BUTTOCKS AND EMANI AREA DURING PT REPOSITIONING.
[2019-11-17 03:47] LABS: BASOPHILS ABSOLUTE AUTO 0.04 K/mm3 (0.00-0.23); BASOPHILS PERCENT AUTO 0 % (0-2); EOSINOPHILS ABSOLUTE AUTO 0.22 K/mm3 (0.00-0.68); EOSINOPHILS PERCENT AUTO 1 % (0-6); Hematocrit 24.6 % (33.0-51.0); IMMATURE GRAN ABSOLUTE AUTO 0.12 K/mm3 (0.00-0.10); IMMATURE GRAN PERCENT AUTO 1 % (0-1); LYMPHOCYTES ABSOLUTE AUTO 2.42 K/mm3 (0.84-5.20); LYMPHOCYTES PERCENT AUTO 15 % (21-46); MONOCYTES ABSOLUTE AUTO 1.64 K/mm3 (0.16-1.47); MONOCYTES PERCENT AUTO 10 % (4-13); Mean Corpuscular HGB 31.3 pg (26.0-34.0); Mean Corpuscular HGB Conc 32.5 g/dL (31.5-36.5); Mean Corpuscular Volume 96 fL (80-100); NEUTROPHILS ABSOLUTE AUTO 11.68 K/mm3 (1.96-9.15); NEUTROPHILS PERCENT AUTO 73 % (41-73); NRBC ABSOLUTE 0.02 K/mm3 (0.00-0.02); NRBC Auto 0.1 /100 WBC (0.0-0.2); Platelet Count 76 K/mm3 (150-400); RDW Coefficient Variation 22.5 % (11.7-14.2); RDW Standard Deviation 56.2 fL (35.1-46.3); Red Blood Cell Count 2.56 M/mm3 (3.80-5.20); White Blood Cell Count 16.12 K/mm3 (4.00-11.30)
[2019-11-17 03:59] LABS: International Normalized Ratio 1.53
[2019-11-17 04:05] LABS: Alanine Aminotransfer (ALT/SGP 45 U/L (12-78); Albumin, Blood 3.1 g/dL (3.4-5.0); Albumin/Globulin Ratio 1.2 (0.8-1.8); Alk Phos 236 U/L (50-136); Anion Gap 7 mmol/L (6-16); Aspartate Aminotrans (AST/SGOT 69 U/L (12-37); Bilirubin, Total 4.3 mg/dL (0.1-1.0); Blood Urea Nitrogen 87 mg/dL (8-24); Bun/Creatinine Ratio 90.6 (12.0-20.0); CO2, Blood 30 mmol/L (21-32); Calcium, Blood 9.1 mg/dL (8.5-10.1); Chloride, Blood 112 mmol/L (98-108); Creatinine, Blood 0.96 mg/dL (0.40-1.00); Globulin, Blood 2.5 g/dL (2.2-4.0); Glomerular Filtration Rate >60 (60-); Glucose, Blood 162 mg/dL (70-99); Magnesium, Blood 2.5 mg/dL (1.6-2.4); Phosphorus, Blood 5.1 mg/dL (2.5-4.9); Potassium, Blood 3.4 mmol/L (3.5-5.5); Sodium, Blood 149 mmol/L (136-145); Total Protein, Blood 5.6 g/dL (6.4-8.2)
--- NOTE | 2019-11-17 06:46 | NUR ---
SHIFT SUMMARY PT REMAINS ALERT TO PERSON. NEEDED ONE DOSE OF PRN PAIN MEDICATIONS FOR ABD PAIN. NO OTHER COMPLAINTS OR CHANGES FROM SHIFT ASSESSMENT. WILL CONTINUE TO MONITOR.
--- NOTE | 2019-11-17 07:15 | NUR ---
Assumed care of pt at 0700. Bedside report received from Yobani WOLFF. Pt A&O x 4. Unable to state current year when asked to do so. Answers questions, follows commands. Pt on room air, SpO2 90% or greater. Lungs clear, diminished t/o on auscultation. SR-ST per monitor, HR ranging from 95-105. Receiving levophed at 13 mcg/min. Lasix drip at 40 mg/hr. BP stable with MAP 65 or greater. Pt has dobhoff in place with tube feeds and flush per orders. Fecal management system in place. Liquid stool in tubing, patent, draining to gravity. Perivulvar and perianal areas are severely excoriated and draining purulent drainage. Managed by using ABD pads for drainage and protection in skin folds, changed Q2H. Smith catheter in place draining clear, yellow urine. Urine output exceeding 30 mL/hr. Bed in reverse trendelenburg to maintain HOB greater than 30 degrees.
--- NOTE | 2019-11-17 07:45 | NUR ---
Dr Almodovar in to see pt. No new orders at this time.
--- NOTE | 2019-11-17 09:30 | NUR ---
Discussed potassium levels with PT potassium with Dr Piña. Provider stated that this should be adequate for pt's low potassium level this morning. Provider does not want additional PT or IV replacement.
--- NOTE | 2019-11-17 12:26 | NUR ---
Discussed purulent perianal drainage with Dr Piña. Provider ordered bacterial culture and to see if Dr Lance is available to consult for wound. Dr Lance contacted, provider states he is unavailable for consultation.
--- NOTE | 2019-11-17 15:46 | NUR ---
Dr Skinner and resident in to see pt and evaluate pt's kevin area. Provider discusses case with wound care nurse and recommends Nystatin cream TID, with zinc oxide on top to barrier skin from stool leaking around rectal tube.
--- NOTE | 2019-11-17 17:09 | NUR ---
t/c received from sister Lilly, requesting family meeting on Friday with Pal Care and ICU Dr. Visit made to ICU, when mom was visiting. I am unable to speak to or arrange family meeting with iron molder helper who will be on duty Friday but agreed to arrange a family meeting with Palliative care RN on Friday with pt's mom and sister. I could not reach Lilly by phone to determine a time but left her a VM and request for her to call back with a time to meet Friday. Mom did not want to pick a time and asked that Lilly do that. Pt appears less uncomfortable than yesterday. Skin warm and dry today. Abd firm and pt c/o discomfort with palpation. [facility] I asked pt's mom if Marina was a or ever worked at the [facility] and she said NO. Pt is still starting sentences she cannot complete but is able to answer questions more completely today. Pt reports pain "around her bottom". Wounds there are being addressed by staff and Drs. She reports leg and abdominal pain. Her chief request is to be able to drink water. Pt is NPO with a dobhoff feeding tube. Family has questions re: [facility] prognosis and recovery that I cannot answer. During family meeting last week with Dr Cummins, the anticipation of [facility] rehab/care discussed IF pt improves enough to achieve stability and leave the hospital. Pt's mom is 81 and would be unable to care for her. Reviewed plan with nursing. Will remain available to answer family questions tomorrow and will arrange family meeting with Friday Palliative care RN on duty.
--- NOTE | 2019-11-17 18:28 | NUR ---
At this time, pt is requiring 8 mcg/min levophed to maintain safe BP. Pt has been alert for entire shift. Discussed OOB activity with Dr Piña, but pt's perianal wounds are too severe for pt to tolerate chair. Surgery consulted. No plans for surgical intervention, however wounds to be treated with nystatin cream and zinc oxide. Wounds cultured as purulent drainage was observed. Pt able to help with in bed turning. Pt repositioned Q2H and perineal dressings and pads changed with each reposition. Pt remains on room air. Lungs clear, dim t/o. SR-ST per monitor. Pt remains on lasix drip. Excellent urine output through ibrahim catheter today. 300 mL output through rectal tube with small amount of leakage around tube. Tube repositioned, and this helped decrease amount of leakage. Will continue to closely monitor until care handoff and bedside report with oncoming RN.
--- NOTE | 2019-11-17 21:45 | NUR ---
ASSUMED CARE OF PT @ 1900 FROM HENNY WOLFF. PT A&O TO PERSON AND PLACE. ABLE TO ANSWER SOME QUESTIONS BUT SLOW TO RESPOND. FOLLOWS COMMANDS. LSCTA BUT DIMINISHED c O2 SAT >90% ON RA. SINUS/ ST ON THE LAMINATOR PREFORMS c LEVOPHED @ 8MCG/MIN WITH MAP >65. LASIX GTT @ 40. RECTAL TUBE IN PLACE WITH BROWN, LIQUID STOOL DRAINING. LAZAR CATH PATENT DRAINING YELLOW URINE WITH CASTS, DRAINING AT A RATE GREATER THAN 30 ML/HR. EMANI AREA EXTREMELY EXCORIATED, CURRENTY BEING MANAGED c NYSTATIN AND ZINC OXIDE PASTE. PICC LINE DRESSING CHANGED. WILL CONTINUE TO TURN Q2HR.
[2019-11-18 04:14] LABS: BASOPHILS ABSOLUTE AUTO 0.04 K/mm3 (0.00-0.23); BASOPHILS PERCENT AUTO 0 % (0-2); EOSINOPHILS PERCENT AUTO 1 % (0-6); Hematocrit 25.7 % (33.0-51.0); Hemoglobin 8.3 g/dL (11.5-16.0); IMMATURE GRAN ABSOLUTE AUTO 0.06 K/mm3 (0.00-0.10); IMMATURE GRAN PERCENT AUTO 0 % (0-1); LYMPHOCYTES ABSOLUTE AUTO 2.35 K/mm3 (0.84-5.20); LYMPHOCYTES PERCENT AUTO 15 % (21-46); MONOCYTES ABSOLUTE AUTO 1.56 K/mm3 (0.16-1.47); MONOCYTES PERCENT AUTO 10 % (4-13); Mean Corpuscular HGB 31.8 pg (26.0-34.0); Mean Corpuscular HGB Conc 32.3 g/dL (31.5-36.5); Mean Corpuscular Volume 99 fL (80-100); NEUTROPHILS ABSOLUTE AUTO 11.75 K/mm3 (1.96-9.15); NEUTROPHILS PERCENT AUTO 74 % (41-73); NRBC ABSOLUTE 0.02 K/mm3 (0.00-0.02); NRBC Auto 0.1 /100 WBC (0.0-0.2); Platelet Count 80 K/mm3 (150-400); RDW Coefficient Variation 23.3 % (11.7-14.2); RDW Standard Deviation 58.9 fL (35.1-46.3); Red Blood Cell Count 2.61 M/mm3 (3.80-5.20); White Blood Cell Count 15.96 K/mm3 (4.00-11.30)
[2019-11-18 04:17] LABS: Mean Platelet Volume 13.3 fL (9.1-12.4)
[2019-11-18 04:31] LABS: Alanine Aminotransfer (ALT/SGP 48 U/L (12-78); Albumin, Blood 2.6 g/dL (3.4-5.0); Albumin/Globulin Ratio 0.9 (0.8-1.8); Alk Phos 208 U/L (50-136); Anion Gap 7 mmol/L (6-16); Aspartate Aminotrans (AST/SGOT 64 U/L (12-37); Blood Urea Nitrogen 86 mg/dL (8-24); Bun/Creatinine Ratio 96.2 (12.0-20.0); CO2, Blood 31 mmol/L (21-32); Calcium, Blood 8.8 mg/dL (8.5-10.1); Chloride, Blood 112 mmol/L (98-108); Creatinine, Blood 0.89 mg/dL (0.40-1.00); Globulin, Blood 2.9 g/dL (2.2-4.0); Glomerular Filtration Rate >60 (60-); Glucose, Blood 174 mg/dL (70-99); Phosphorus, Blood 4.6 mg/dL (2.5-4.9); Potassium, Blood 3.3 mmol/L (3.5-5.5); Sodium, Blood 150 mmol/L (136-145); Total Protein, Blood 5.5 g/dL (6.4-8.2)
--- NOTE | 2019-11-18 04:57 | NUR ---
PT SHOWING SIGNS OF POTENTIAL AUDITORY HALLUCINATIONS. TALKING TO HERSELF IN THE ROOM. REQUESTING PINEAPPLE JUICE AND ASKING "IS THERE ANY PINEAPPLE JUICE IN THE HOUSE". PT ADVICED SHE IS NPO AND SHE'S AT THE HOSPITAL.
--- NOTE | 2019-11-18 05:56 | NUR ---
SHIFT SUMMARY PT ALERT TO PERSON, HAVING VISUAL HALLUCINATIONS, STATED "I KNOW THIS IS NOT REAL, BUT THERE IS A CAT ON THE BED". PT DID NOT SLEEP DURING THE NIGHT. PT TURNED SIDE TO SIDE Q 2HR TO KEEP OFF THE BOTTOM. APPLIED ZINC AND CHANGED DRYFLOW c EACH TURN. LEVOPHED TITRATED UP FROM UP 8 TO 15 TO MAINTAIN MAP >65. PT CONTINUES ON LASIX DRIP c URINE OUTPUT OF 1950ML. RECTAL TUBE DRAINING BROWN, LIQUID STOOL, 300ML. PICC LINE DRESSING AND CAPS CHANGED. TUBE FEED CONTINUES AT GOAL. NO SIGNS OF N/V. REPORT TO ONCOMING NURSE.
--- NOTE | 2019-11-18 07:15 | NUR ---
Assumed care of pt at 0700. Bedside report received from Yobani WOLFF. Pt A&O x 2. Answers questions. Follows commands. Verbalizes needs. Pt is awake and reportedly has not slept for previous 2 night shifts. Pt also did not sleep yesterday. Pt on room air. SpO2 90% or greater. Lungs clear, dim in bases. ST per monitor, rate 100-110. Levophed at 15 mcg/min. Lasix drip. Rectal tube in place, draining to gravity. Smith catheter for strict I&O.
--- NOTE | 2019-11-18 10:51 | NUR ---
Pt sitting up in recliner with donut underneath sacrum. Pt states her perianal area hurts, but no more than usual. Speech therapy in to see pt, states it is not safe for patient to have PO intake at this time. Speech therapy recommended against lemon glycerin swabs, stating that these make patient's mouth soap drier operator with continued use. Speech therapy stated not safe for patient to have spoonfulls of water with staff supervision. Plan for pt to receive oral care with suction swabs and practice swallowing with freshly cleaned mouth. Physical therapryOsmin, in to work with patient. Pt tolerating activity well.
--- NOTE | 2019-11-18 11:28 | NUR ---
Patient visiting with her boyfriend. Patient currently working with occupational therapy.
--- NOTE | 2019-11-18 12:29 | NUR ---
Lasix drip stopped. Levophed at 13 mcg/min. Pt is highly interactive compared to yesterday. Joking with significant other and staff.
--- NOTE | 2019-11-18 14:11 | NUR ---
Return phone call from and long conversation with pt's sister, Lilly. I recommended that if she wants to meet with ICU Dr that she should come in to visit sister in am and let staff/Dr know that when Dr is available they would like to discuss pt's progress, care, prognosis. Lilly is able to do that and will also plan to meet with [facility] staff. Update given to Lilly. I recommended that she, pt's mom and prev SO continue to evaluate what Marina would choose for herself if she was able to. Pt is improving in alertness and ability to converse and interact with staff. She recognized PT who has worked with her before. Lilly verbalized understanding that pt has a limited life expectancy even if she is able to be released from hospital per her conversations with Drs in past three weeks. She states family understands that Reema will most likely spend the rest of her life in a care facility of some kind and not be able to return to independent living. I will alert staff and [facility] coworkers of sister's desire to meet with Dr and them tomorrow when she is able to come visit again.
--- NOTE | 2019-11-18 17:53 | NUR ---
Pt A&O x 2. Much more alert and interactive than previous day shift. Pt engages staff and visitors in conversation. Makes jokes when interacting. Pt's boyfriend stated pt is starting to act more like her usual self. Pt able to help with repositioning and ADLs. Pt often performs own oral care when provided with suction swab. Pt verbalizes understanding that she cannot eat or drink, but states she is looking forward to drinking apple juice or pineapple juice when she can. Pt has been very pleasant and cooperative with care this shift. Pt had one occurrance of hallucinations, inquiring about a dog she perceived being in her room. Pt was able to take a nap for approx 1.5 hours today. Pt sat up in chair for approx 2.5 hours to participate with PT, OT, and ST. Pt has been sinus tachycardia during this shift, HR ranging from 100 to 110. BP low/normal. On 10 mcg/min levophed at this time. Lasix drip stopped today. Pt has continued to have urine output through ibrahim since drip was stopped. Rectal tube continues to drain liquid stool. Dobhoff tube with tube feeds and flushes per orders. Will continue to closely monitor until care handoff and bedside report with oncoming RN.
--- NOTE | 2019-11-18 20:52 | NUR ---
ASSUMED CARE OF PT @ 1900, REPORT RECEIVED FROM HENNY WOLFF. PT A&O TO PERSON. ANSWERS SOME QUESTIONS, WILL FOLLOW COMMANDS, CONFUSED TO WHERE SHE IS AND TALKING TO PEOPLE IN THE ROOM. PT ON RA c O2 SAT >90%. LSCTA, DIMINISHED IN THE BASES. SINUS TACH ON THE SENIOR MEDIA PLANNER IN THE LOW 100'S-110'S. ABD WITH MILD PAIN UPON PALPATION, BT'S ACTIVE. RECTAL TUBE DRAINING BROWN, LOOSE STOOL. LAZAR CATH PATENT, DRAINING YELLOW URINE. LEVOPHED AT 10, TITRATED DOWN TO 8 BUT PTS BP DID NOT TOLERATE, BACK AT 10.
[2019-11-19 03:30] LABS: BASOPHILS ABSOLUTE AUTO 0.08 K/mm3 (0.00-0.23); BASOPHILS PERCENT AUTO 1 % (0-2); EOSINOPHILS ABSOLUTE AUTO 0.31 K/mm3 (0.00-0.68); EOSINOPHILS PERCENT AUTO 2 % (0-6); Hematocrit 26.2 % (33.0-51.0); Hemoglobin 8.2 g/dL (11.5-16.0); IMMATURE GRAN ABSOLUTE AUTO 0.07 K/mm3 (0.00-0.10); IMMATURE GRAN PERCENT AUTO 1 % (0-1); LYMPHOCYTES PERCENT AUTO 16 % (21-46); MONOCYTES ABSOLUTE AUTO 1.14 K/mm3 (0.16-1.47); MONOCYTES PERCENT AUTO 8 % (4-13); Mean Corpuscular HGB 31.2 pg (26.0-34.0); Mean Corpuscular HGB Conc 31.3 g/dL (31.5-36.5); Mean Corpuscular Volume 100 fL (80-100); NEUTROPHILS ABSOLUTE AUTO 9.96 K/mm3 (1.96-9.15); NEUTROPHILS PERCENT AUTO 72 % (41-73); NRBC ABSOLUTE 0.03 K/mm3 (0.00-0.02); NRBC Auto 0.2 /100 WBC (0.0-0.2); Platelet Count 86 K/mm3 (150-400); RDW Coefficient Variation 23.9 % (11.7-14.2); RDW Standard Deviation 65.1 fL (35.1-46.3); Red Blood Cell Count 2.63 M/mm3 (3.80-5.20); White Blood Cell Count 13.76 K/mm3 (4.00-11.30)
[2019-11-19 03:32] LABS: Mean Platelet Volume 13.4 fL (9.1-12.4)
[2019-11-19 03:48] LABS: Alanine Aminotransfer (ALT/SGP 53 U/L (12-78); Albumin, Blood 2.4 g/dL (3.4-5.0); Albumin/Globulin Ratio 0.8 (0.8-1.8); Alk Phos 201 U/L (50-136); Anion Gap 6 mmol/L (6-16); Aspartate Aminotrans (AST/SGOT 59 U/L (12-37); Bilirubin, Total 3.6 mg/dL (0.1-1.0); Blood Urea Nitrogen 84 mg/dL (8-24); Bun/Creatinine Ratio 91.8 (12.0-20.0); CO2, Blood 31 mmol/L (21-32); Calcium, Blood 8.9 mg/dL (8.5-10.1); Chloride, Blood 111 mmol/L (98-108); Creatinine, Blood 0.92 mg/dL (0.40-1.00); Globulin, Blood 3.1 g/dL (2.2-4.0); Glomerular Filtration Rate >60 (60-); Glucose, Blood 178 mg/dL (70-99); Magnesium, Blood 2.2 mg/dL (1.6-2.4); Phosphorus, Blood 4.4 mg/dL (2.5-4.9); Potassium, Blood 4.3 mmol/L (3.5-5.5); Sodium, Blood 148 mmol/L (136-145); Total Protein, Blood 5.5 g/dL (6.4-8.2)
--- NOTE | 2019-11-19 06:06 | NUR ---
SHIFT SUMMARY PT REMAINED ALERT TO PERSON, STILL UNSURE OF EXACTLY WHERE SHE IS AND WILL OCCASIONALLY TALK TO SOMEONE SHE BELIEVES IS IN THE ROOM. APPEARS TO BE MORE COMFORTABLE THAN SHE WAS THE PREVIOUS NIGHT, DID NOT REQUIRE ANY PAIN MEDICATONS. MELATONIN ADMISTERED @ BEDTIME BUT DID NOT RESULT IN PT SLEEPING. 1MG ATIVAN GIVEN, PT SLEPT T/O THE NIGHT. SINUS/ SINUS TACH ON THE SPORTS ATHLETIC TRAINER. LEVOPHED TITRATED UP TO 15MCG/MIN DURING THE ZYGLO INSPECTOR HOURS TO MAINTAIN A SYSTOLIC BP OF 90 OR GREATER. ABLE TO TITRATE BACK DOWN TO 12MCG/MIN. NYSTATIN POWDER ORDERED AND APPLIED TO EMANI AREA. NO OTHER SIGNIFICANT CHANGES TO PT. WILL CONTINUE TO MONITOR, REPORT TO ONCOMING NURSE.
--- NOTE | 2019-11-19 07:59 | NUR ---
ASSUMED CARE: RECEIVED REPORT FROM NOC RN. PT LYING IN BED RECEIVING TUBE FEEDING AND LEVOPHED. TURNED PT ON TO HER R SIDE. BLOTTED WOUND ON HER BACK SIDE TO REMOVE SOME OF THE LIQUID THAT IS SEEPING FROM THE WOUNDS, CHANGED OUT DRY FLOW. WILL CONTINUE TO MONIOTOR AND ASSESS FURTHER.
--- NOTE | 2019-11-19 11:45 | NUR ---
FAMILY COMFORT CARE/HOSPICE: SISTER OF PT ARIVED TO THE UNIT THIS MORNING TALKED WITH PALATIVE CARE, DR PARKS, AND THE POULTRY HATCHERY SUPERVISOR ABOUT THE PT PLAN OF CARE WITH POSSIBLE HOSPICE OR COMFORT CARE. SISTER ALONG WITH MOTHER CAME INTO SEE THE PT AND STATED THAT THE PT APPEARS TO BE TIRED TODAY AND IS IN NEED/WANT OF FOOD AND WATER. EDUCTED FAMILY ABOUT PT AT THIS POINT BEING UNABLE TO UNTIL SPEECH CLEARS HER OR SHE GOES COMFORT CARE OR HOSPICE.
--- NOTE | 2019-11-19 19:09 | NUR ---
Met wti ppatient mother and sister this am with child care supervisor. Family struggling with mosy that she shows minor improvments but not much gain. They expressed some frustration and moral distress at decision making. Careful review of patients stressors and life process that got her here revewls much of their distress. They state she was functional until her job loss and life changes that put her on the path of alcohol use she also has been under treatment for pain and had treatments reduce due to narcotic use and started searching out extra meds. Supportive conversation they expressed grief and exceptance. We discussed hoslitic care and suffering and explored their belief systems. Facilitated discussions between pt sister and mother. Lilly patients sister is having significant stress. She has good rapport with Marina's mother they are half sisters with the same father. So, Lilly is navigating some stressful family structure to support her sister. Will meet again tommrowand attemtp meeting with pt and her sister We carfully reviewed multisystem organ failure and laborer marine terminal pressor use and they epressed understanding of poor prognosis. The just struggle with giving up to soon. We reviewed suffering and and a respectful pthe towards end of life. They are of different faiths and that is presenting some stuggling and moral distress. Attemtpted visits with pt but to painfull and sleepy. Review with nursing and intesivist and comfort is reccomended. Will follow up tomorrow.
--- NOTE | 2019-11-19 23:08 | NUR ---
ASSUMED CARE AT 1900 PT SITTING UP IN BED EATING LEMON THICK WATER WITH A SPOON. LEVOPHED INFUSING AT 14MCG/MIN. RECTAL TUBE IN PLACE AND DRAINING TO GRAVITY. LAZAR IN PLACE AND DRAINING TO GRAVITY. TUBE FEED TO BE STARTED DUE TO <50% OF DINNER PLATE FINISHED. O2 SAT >90% ON RA. SEE SHIFT ASSESSMENT FOR FULL ASSESSMENT.
[2019-11-20 04:02] LABS: BASOPHILS ABSOLUTE AUTO 0.09 K/mm3 (0.00-0.23); BASOPHILS PERCENT AUTO 1 % (0-2); EOSINOPHILS ABSOLUTE AUTO 0.45 K/mm3 (0.00-0.68); EOSINOPHILS PERCENT AUTO 3 % (0-6); Hematocrit 26.6 % (33.0-51.0); Hemoglobin 8.2 g/dL (11.5-16.0); IMMATURE GRAN ABSOLUTE AUTO 0.06 K/mm3 (0.00-0.10); IMMATURE GRAN PERCENT AUTO 0 % (0-1); LYMPHOCYTES ABSOLUTE AUTO 2.47 K/mm3 (0.84-5.20); LYMPHOCYTES PERCENT AUTO 17 % (21-46); MONOCYTES ABSOLUTE AUTO 1.22 K/mm3 (0.16-1.47); MONOCYTES PERCENT AUTO 8 % (4-13); Mean Corpuscular HGB 30.9 pg (26.0-34.0); Mean Corpuscular HGB Conc 30.8 g/dL (31.5-36.5); Mean Corpuscular Volume 100 fL (80-100); NEUTROPHILS ABSOLUTE AUTO 10.24 K/mm3 (1.96-9.15); NEUTROPHILS PERCENT AUTO 71 % (41-73); NRBC ABSOLUTE 0.04 K/mm3 (0.00-0.02); NRBC Auto 0.3 /100 WBC (0.0-0.2); Platelet Count 96 K/mm3 (150-400); RDW Coefficient Variation 24.3 % (11.7-14.2); RDW Standard Deviation 67.2 fL (35.1-46.3); Red Blood Cell Count 2.65 M/mm3 (3.80-5.20); White Blood Cell Count 14.53 K/mm3 (4.00-11.30)
[2019-11-20 04:06] LABS: Mean Platelet Volume 13.6 fL (9.1-12.4)
[2019-11-20 04:19] LABS: Alanine Aminotransfer (ALT/SGP 52 U/L (12-78); Albumin, Blood 2.4 g/dL (3.4-5.0); Albumin/Globulin Ratio 0.7 (0.8-1.8); Alk Phos 200 U/L (50-136); Anion Gap 5 mmol/L (6-16); Aspartate Aminotrans (AST/SGOT 64 U/L (12-37); Bilirubin, Total 3.5 mg/dL (0.1-1.0); Blood Urea Nitrogen 85 mg/dL (8-24); Bun/Creatinine Ratio 84.2 (12.0-20.0); CO2, Blood 30 mmol/L (21-32); Calcium, Blood 9.1 mg/dL (8.5-10.1); Chloride, Blood 111 mmol/L (98-108); Creatinine, Blood 1.01 mg/dL (0.40-1.00); Globulin, Blood 3.5 g/dL (2.2-4.0); Glomerular Filtration Rate >60 (60-); Glucose, Blood 170 mg/dL (70-99); Magnesium, Blood 2.4 mg/dL (1.6-2.4); Phosphorus, Blood 4.8 mg/dL (2.5-4.9); Potassium, Blood 5.2 mmol/L (3.5-5.5); Sodium, Blood 146 mmol/L (136-145); Total Protein, Blood 5.9 g/dL (6.4-8.2)
--- NOTE | 2019-11-20 06:34 | NUR ---
END OF SHIFT SUMMARY PT SLEPT DURING THE NIGHT WHEN NOT DISTURBED. LEVOPHED INFUSING AT 10MCG/MIN. TF AT A RATE OF 55ML/HR WITH 100ML WATER FLUSHES. RECTAL TUBE IN PLACE AND DRAINING TO GRAVITY. LAZAR IN PLACE AND DRAINING TO GRAVITY. O2 SAT >95% RA. HR 100-110. WOUND CARE TO BUTTOCKS Q4HR WITH LINEN CHANGE. WILL REPORT TO AM RN WHEN AVAILABLE.
--- NOTE | 2019-11-20 07:45 | NUR ---
ASSUMED CARE BEDSIDE REPORT RECIEVED. PT IS LAYING IN BED ON SIDE RESTING QUIETLY. PT AWAKENS TO VERBAL STIMULI. PT IS DROWSEY, BUT ALERT AND ORIENTED TO SELF AND LOCATION. PT ABLE TO FOLLOW SIMPLE COMMANDS AND ANSWER SIMPLE QUESTIONS. PT FORGETFUL. PT BOOSTED UP IN BED FOR BREAKFAST, PT WITH POOR APPETITE THIS AM. DOBHOFF IN PLACE WITH TF AT 55 ML/HR GOAL RATE. PICC TO NEHEMIAH IN PLACE WITH LEVOPHED INFUSING AT 10 MCG/MIN. PT ON ROOM AIR. LAZAR TEMP PROBE IN PLACE WITH CLOUDY YELLOW URINE OUTPUT NOTED. RECTAL TUBE IN PLACE WITH LIQUID BROWN OUTPUT NOTED. PT JAUNDICED THROUGHOUT. EXCORIATIONS TO PERIAREA AND BUTTOCKS NOTED. SEE WOUND PHOTOS IN CHART. NO FAMILY AT BEDSIDE. WILL CONTINUE TO MONITOR.
--- NOTE | 2019-11-20 18:16 | NUR ---
SHIFT SUMMARY NO ACUTE CHANGES THIS SHIFT. PT HAS REMAINED DROWSEY AND SOMNOLENT THROUGHOUT THE DAY. PT AROUSES TO VERBAL STIMULI, BUT DOES NOT STAY AWAKE FOR LONG. PT ABLE TO ANSWER SOME SIMPLE QUESTIONS. ALERT TO SELF AND LOCATION ONLY. PT WITH POOR APPETITE TODAY. DOBHOFF REMAINS IN PLACE WITH TF INFUSING AT GOAL RATE. PICC REMAINS IN PLACE TO NEHEMIAH. VITAL SIGNS STABLE, PT ON ROOM AIR. LEVOPHED TITRATED DOWN TO 8 MCG/MIN. LAZAR REMAINS IN PLACE WITH CLOUDY YELLOW OUTPUT NOTED. RECTAL TUBE REMAINS IN PLACE WITH BROWN LIQUID OUTPUT. PERIAREA/BUTTOCKS REMAINS SEVERELY EXCORIATED, SEE PHOTOS. PT REMAINS JAUNDICED THROUGHOUT. PT BOYFRIEND IN TO VISIT FOR SHORT TIME TODAY. WILL CONTINUE TO MONITOR AND REPORT OFF TO ONCOMING RN.
--- NOTE | 2019-11-20 20:01 | NUR ---
Supportive call to patients mother. She is staying home today due to heavy rain. Advised i will vist pt throught out day and update her is any major changes . goal is to titrate down pressors.
--- NOTE | 2019-11-20 23:09 | NUR ---
ASSUMED CARE AT 1900 PT LAYING IN BED AND ALERT TO SELF. PT FOLLOWING DIRECTIONS. LEVOPHED INFUSING THROUGH PICC AT 8MCG/MIN. TUBE FEED INFUSING AT 55ML/HR WITH 100ML WATER FLUSHES Q4HR. RECTAL TUBE IN PLACE AND DRAINING TO GRAVITY. LAZAR IN PLACE AND DRAINING TO GRAVITY. SEE SHIFT ASSESSMENT FOR FULL ASSESSMENT.
[2019-11-21 04:20] LABS: BASOPHILS ABSOLUTE AUTO 0.08 K/mm3 (0.00-0.23); BASOPHILS PERCENT AUTO 1 % (0-2); EOSINOPHILS ABSOLUTE AUTO 0.51 K/mm3 (0.00-0.68); EOSINOPHILS PERCENT AUTO 4 % (0-6); Hematocrit 24.4 % (33.0-51.0); Hemoglobin 7.6 g/dL (11.5-16.0); IMMATURE GRAN ABSOLUTE AUTO 0.05 K/mm3 (0.00-0.10); IMMATURE GRAN PERCENT AUTO 0 % (0-1); LYMPHOCYTES ABSOLUTE AUTO 2.68 K/mm3 (0.84-5.20); LYMPHOCYTES PERCENT AUTO 19 % (21-46); MONOCYTES ABSOLUTE AUTO 1.16 K/mm3 (0.16-1.47); MONOCYTES PERCENT AUTO 8 % (4-13); Mean Corpuscular HGB 31.7 pg (26.0-34.0); Mean Corpuscular HGB Conc 31.1 g/dL (31.5-36.5); Mean Corpuscular Volume 102 fL (80-100); NEUTROPHILS ABSOLUTE AUTO 9.65 K/mm3 (1.96-9.15); NEUTROPHILS PERCENT AUTO 68 % (41-73); NRBC ABSOLUTE 0.03 K/mm3 (0.00-0.02); NRBC Auto 0.2 /100 WBC (0.0-0.2); Platelet Count 91 K/mm3 (150-400); RDW Coefficient Variation 24.4 % (11.7-14.2); RDW Standard Deviation 74.7 fL (35.1-46.3); White Blood Cell Count 14.13 K/mm3 (4.00-11.30)
[2019-11-21 04:21] LABS: Mean Platelet Volume 13.1 fL (9.1-12.4)
[2019-11-21 04:36] LABS: Albumin, Blood 2.2 g/dL (3.4-5.0); Anion Gap 5 mmol/L (6-16); Blood Urea Nitrogen 90 mg/dL (8-24); Bun/Creatinine Ratio 90.2 (12.0-20.0); CO2, Blood 30 mmol/L (21-32); Calcium, Blood 8.9 mg/dL (8.5-10.1); Chloride, Blood 112 mmol/L (98-108); Glomerular Filtration Rate >60 (60-); Glucose, Blood 154 mg/dL (70-99); Phosphorus, Blood 4.8 mg/dL (2.5-4.9); Potassium, Blood 5.2 mmol/L (3.5-5.5); Sodium, Blood 147 mmol/L (136-145)
--- NOTE | 2019-11-21 06:08 | NUR ---
END OF SHIFT SUMMARY PT SLEPT DURING THE NIGHT WHEN NOT DISTURBED. PT ALERT TO SELF AND LOCATION, NOT TIME OR SITUATION AND SLOW TO RESPOND. LEVOPHED INFUSING AT 6MCG/MIN THROUGH NEHEMIAH PICC LINE. HR 100-115. SBP 80-110. RA SAT'S >95%. TUBE FEEDING INFUSING AT 55ML/HR WITH 100ML WATER FLUSHES. RECTAL TUBE IN PLACE AND DRAINING TO GRAVITY. LAZAR IN PLACE AND DRAINING TO GRAVITY. CALCIUM ALGINATE DRESSING CHANGED WITH HARD TURNS. WILL REPORT TO AM RN WHEN AVAILABLE.
--- NOTE | 2019-11-21 08:15 | NUR ---
ASSUMED CARE BEDSIDE REPORT RECIEVED. PT IS RESTING QUIETLY UPON ENTERING THE ROOM. PT AWAKENS EASILY TO VERBAL STIMULI. PT IS DROWSEY. PT ANSWERS SIMPLE QUESTIONS APPROPRIATELY. PT SLOW TO RESPOND. PT FOLLOWS SOME SIMPLE COMMANDS. PT FORGETFUL AND CONFUSED AT TIMES. VITAL SIGNS STABLE. PT WITH PICC TO NEHEMIAH WITH LEVOPHED INFUSING AT 6 MCG/MIN. DOBHOFF IN PLACE WITH TF INFUSING AT 55 ML/HR GOAL RATE. PT TOLERATED MINIMAL PO THICKENED WATER. LAZAR IN PLACE WITH CLOUDY YELLOW OUTPUT NOTED. RECTAL TUBE IN PLACE WITH LIQUID BROWN OUTPUT NOTED. PT JAUNDICED THROUGHOUT. PT WITH WEEPING WOUNDS TO GROIN FOLDS AND BUTTOCKS. CALCIUM ALGINATE DRESSINGS IN PLACE. SEE PHOTOS OF WOUNDS IN CHART. NO FAMILY AT BEDSIDE. WILL CONTINUE TO MONITOR.
[2019-11-21 13:57] LABS: Stool Occult Blood Guaiac 1 Pos (Neg)
--- NOTE | 2019-11-21 14:53 | NUR ---
DOBHOFF/FEEDINGS PT TO START CYCLIC FEEDINGS DURING NOC SHIFT PER DIETARY, AND ENCOURAGE PO INTAKE DURING DAY SHIFT. TF STOPPED AT 1245. PT PULLED OUT DOBHOFF UNINTENTIONALLY. NEW DOBHOFF PLACED FOR FEEDS TO START AT 1999. CHEST XRAY DONE TO CONFIRM PLACEMENT. WILL CONTINUE TO MONITOR. PT CONTINUES TO HAVE POOR APPETITE AT THIS TIME.
--- NOTE | 2019-11-21 17:26 | NUR ---
SHIFT SUMMARY NO ACUTE CHANGES THIS SHIFT. PT HAS REMAINED DROWSEY, BUT AROUSABLE TO VERBAL STIMULI. PT IS ALERT TO SELF AND FOLLOWING SIMPLE DIRECTIONS. PT FORGETFUL AND CONFUSED AT TIMES. VITAL SIGNS HAVE REMAINED STABLE. LEVOPHED TITRATED DOWN TO 4 MCG/MIN TODAY. PT ON ROOM AIR. PICC TO NEHEMIAH REMAINS C/D/I. PT PULLED DOBHOFF THIS AFTERNOON. NEW DOBHOFF PLACED, CLAMPED AT THIS TIME. CYCLIC TF TO RESUME THIS NOC SHIFT. PT CONTINUES TO HAVE POOR APPETITE THROUGHOUT THE DAY, BUT SWALLOWS THICKENED LIQUIDS WELL. LAZAR REMAINS IN PLACE WITH YELLOW CLOUDY URINE OUTPUT. RECTAL TUBE REMAINS IN PLACE WITH LIQUID BROWN OUTPUT NOTED. WOUNDS TO PERIAREA AND BUTTOCKS REMAIN UNCHANGED. PT CLEANED/TURNED, AND NEW ALGINATE DRESSINGS PLACED TO WOUNDS Q2H. PT CONTINUES TO HAVE WEEPING FROM WOUNDS. PT REMAINS JAUNDICED. FAMILY CAME TO VISIT FOR SHORT TIME TODAY. PLAN FOR FAMILY MEETING WITH MARY VAZQUEZ TOMORROW. WILL CONTINUE TO MONITOR AND REPORT OFF TO ONCOMING RN.
[2019-11-21 20:52] LABS: Hematocrit 25.2 % (33.0-51.0); Hemoglobin 7.9 g/dL (11.5-16.0)
--- NOTE | 2019-11-21 21:49 | NUR ---
ASSUMED CARE AT 1900 PT LAYING IN BED WATCHING TV. PT ALERT TO SELF AND CITY BUT NOT LOCATION OR TIME/DATE. LEVOPHED INFUSING AT 4MCG/MIN THROUGH NEHEMIAH PICC LINE. HR 100-110'S. SBP 80-104. RA O2 SATS >95%. RECTAL TUBE IN PLACE AND DRAINING TO GRAVITY. LAZAR IN PLACE AND DRAINING TO GRAVITY. LAB DRAW TO BE DONE AT 1999. CYCLIC TF TO BE STARTED AT 1999. SEE SHIFT ASSESSMENT FOR FULL ASSESSMENT.
--- NOTE | 2019-11-22 04:25 | NUR ---
PT PULLED OUT DOBHOFF AT 0010 DURING PT ROUND, RN FOUND DOBHOFF ON THE FLOOR AND PT HAD THICK RED NASAL MUCUS ON FINGER. TUBE FEED STOPPED AND BETWEEN 50-70ML OF TUBE FEED SOLUTION ON THE GROUND. SHORTLY AFTERWARDS A NEW DOBHOFF WAS PLACED AND CHEST XRAY DONE. DR GRIFFIN CONFIRMED XRAY AND INSTRUCTED TO PULL BACK 3CM AND THEN OK TO START TUBE FEED AGAIN. DOBHOFF NOW AT 57CM AT NASAL ENTRENCE. TUBE FEED STARTED AGAIN AT 0230 WITH RATE OF 145ML/HR UNTIL 0500, THEN DECREASED TO 75ML FOR AN HOUR AND THEN TUBE FEED WILL BE OFF.
[2019-11-22 04:29] LABS: BASOPHILS ABSOLUTE AUTO 0.06 K/mm3 (0.00-0.23); BASOPHILS PERCENT AUTO 1 % (0-2); EOSINOPHILS ABSOLUTE AUTO 0.21 K/mm3 (0.00-0.68); EOSINOPHILS PERCENT AUTO 2 % (0-6); Hematocrit 23.9 % (33.0-51.0); Hemoglobin 7.6 g/dL (11.5-16.0); IMMATURE GRAN ABSOLUTE AUTO 0.05 K/mm3 (0.00-0.10); IMMATURE GRAN PERCENT AUTO 0 % (0-1); LYMPHOCYTES ABSOLUTE AUTO 2.28 K/mm3 (0.84-5.20); LYMPHOCYTES PERCENT AUTO 19 % (21-46); MONOCYTES ABSOLUTE AUTO 0.77 K/mm3 (0.16-1.47); MONOCYTES PERCENT AUTO 7 % (4-13); Mean Corpuscular HGB 32.5 pg (26.0-34.0); Mean Corpuscular HGB Conc 31.8 g/dL (31.5-36.5); Mean Corpuscular Volume 102 fL (80-100); NEUTROPHILS ABSOLUTE AUTO 8.46 K/mm3 (1.96-9.15); NEUTROPHILS PERCENT AUTO 72 % (41-73); NRBC ABSOLUTE 0.02 K/mm3 (0.00-0.02); NRBC Auto 0.2 /100 WBC (0.0-0.2); Platelet Count 95 K/mm3 (150-400); RDW Coefficient Variation 25.2 % (11.7-14.2); RDW Standard Deviation 85.5 fL (35.1-46.3); Red Blood Cell Count 2.34 M/mm3 (3.80-5.20); White Blood Cell Count 11.83 K/mm3 (4.00-11.30)
[2019-11-22 04:42] LABS: Mean Platelet Volume 13.1 fL (9.1-12.4)
[2019-11-22 04:54] LABS: Anion Gap 6 mmol/L (6-16); Blood Urea Nitrogen 93 mg/dL (8-24); Bun/Creatinine Ratio 93.9 (12.0-20.0); CO2, Blood 28 mmol/L (21-32); Chloride, Blood 112 mmol/L (98-108); Creatinine, Blood 0.99 mg/dL (0.40-1.00); Glomerular Filtration Rate >60 (60-); Glucose, Blood 195 mg/dL (70-99); Magnesium, Blood 2.5 mg/dL (1.6-2.4); Phosphorus, Blood 5.3 mg/dL (2.5-4.9); Potassium, Blood 4.7 mmol/L (3.5-5.5); Sodium, Blood 146 mmol/L (136-145)
--- NOTE | 2019-11-22 06:17 | NUR ---
DOBHOFF AND TUBE FEED AT 0500 TUBE FEED PUMP ALARMED FOR A NEW CANISTER. DURING TUBE FEED LINE CHANGE, PT PULLED OUT DOBHOFF. A NEW DOBHOFF WAS NOT INSERTED.
--- NOTE | 2019-11-22 07:28 | NUR ---
END OF SHIFT SUMMARY PT REST T/O NIGHT, REMAINS ARROUSABLE. ORIENTED TO SELF, CITY AND FOLLOWS DIRECTIONS. PT HAS DIFFICULTY COMMUNICATING NEEDS RELATED TO APHASIA. PT AFFECT REMAINS FLAT AND WITHDRAWN. O2 SAT >95% ON RA. PT CONT TO REQUIRE LEVO GTT TO MAINTAIN BP MAP'S >60. MONITOR SHOWS SINUS TACHYCARDIA 100-110'S. DOBHOFF PULLED TWICE THIS SHIFT, SEE PREVIOUS NOTES. RECTAL TUBE AND LAZAR REMAIN IN PLACE. EMANI AREA SKIN REMAINS VERY EXCORIATED, WOUNDS CONT TO WEEP AND SATURATE DRESSINGS. PT COOPERATIVE WITH NURSING CARE BUT IS EASILY TIRED AND REQUIRES MULTIPLE BREAKS/REST WITH WOUND CARE AND TURNS. WOUND CARE VERY PAINFUL FOR PT AND PT REPORT PAIN NOT WELL MANAGED WITH AVAILABLE MEDICATIONS.
--- NOTE | 2019-11-22 08:30 | NUR ---
ASSUMED CARE OF PT AT 0800. REPORT FROM SANTOS WOLFF. PT RESTING IN BED. RESPONSES TO VERBAL STIMULI. ORIENTED TO SELF, YEAR ONLY. DISTRACTED DURING ASSESSMENT. WHEN ASKED IF SHE KNOWS WHY SHE IS HERE, PT RESPONSES "TRUMP", TRUMP ON TELEVISION THAT PT IS WATCHING. FOLLOWS SIMPLE COMMANDS. LUNGS DIMINISHED THROUGHOUT. ABD DISTENDED, FIRM, TENDER. HYPOACTIVE BT. PT REMOVED DOBHOFF TUBE DURING NOC. AWAITING REPLACEMENT UNTIL FAMILY MEETING. TENTATIVE FAMILY MEETING TODAY TO DISCUSS POSSIBLE COMFORT CARE. PT c 3+ EDEMA TO BILATERAL LEGS. PERIAREA EXCORATED, BLEEDING. ABD PADS PLACED. RECTAL TUBE IN PLACE AND DRAINING BROWN LIQUID STOOL TO GRAVITY. LAZAR PATENT, DRAINING YELLOW URINE c SEDIMENT TO GRAVITY. LEVOPHED INFUSING VIA PICC TO LUE AT 6 MCG/MIN. WILL TITRATE FOR MAP >65. VSS. WILL CONTINUE TO MONITOR.
--- NOTE | 2019-11-22 14:30 | NUR ---
Summary of visit earlier and extended 1.[address] Hewitt present for first hour and Chaplain Fine joined us for 30 min of family meeting. Report on family conference given to RN and CM afterwards. Family verbalize understanding that Marina is nearing EOL with her liver failure and many complications. THey would like some time with spiritual care and other family members prior to full transition to comfort care. If pt indicates she would like her family to make decisions for her, family agrees they can do it. This has been a struggle for them and they keep wanting to "wait to see if Reema clears". Her mentation has plateaued and we gently discussed that asking her to make complex decisions may be placing much burden on her. In the past, Reema has repeated, "I just don't know" when asked about her wishes or what she would like. Sister had some good conversation with her yesterday and feels like Reema has things she wants to express but is having difficulty doing that. Plan is to try to facilitate some conversation and ways she can express her feelings and communicate with her family. Net Manager to help family in that process and Brother, Mayank, is expected to visit tomorrow. He and Reema have been very close his whole life and he is really struggling with her decline and has not been in recently to visit her. Reema would like to see him. Pal Care to remain available for support and transitioning to comfort care when family indicates they are ready. Family agreed they do not want her NG replaced and verbalized understanding that she will not be able to consume enough fluids and nutrition to sustain her on her own. They agree with 's recommendation to d/c labs, transfusions and no escalation of pressors or interventions if Reema declines again. Family agreed that they would not want any further procedures or testing like endoscopy done either.
--- NOTE | 2019-11-22 16:21 | NUR ---
Spiritual care note: Participated in family conference with Ludmila WOLFF from palliative care. Ludmila did a great job explaining options going forward for Marina's mom and sister. Family wanted me to be the one to speak with Marina about her dire dx, offer options, and see if she could understand and make her own choices. Marina did seem fairly slow to respond, but did not appear to grasp some of the more complex aspects. For instance, she just stared at me after I asked about her wishes. I asked, "Would you like your family to make decisions on your behalf?" She said "yes." I asked several other ways, and she was consistent in her answer. She says "I trust them." I spoke to Marina about her beleifs in an afterlife and God's boundless love for her. She believes in heaven and believes that's where she go. Prayer provided at bedside. Mom and sister tearful, but appropriate and loving. Marina also stated she wanted "anyone who wants to see me to come." Marina denied pain/fear and appeared to be in good spirits. Family deeply appreciaitve of palliative care interventions. I will remain available.
--- NOTE | 2019-11-22 16:54 | NUR ---
SHIFT SUMMARY PHYSICAL ASSESSMENT REMAINS UNCHANGED. PT CONTINUES ON LEVOPHED GTT AT 6 MCG/MIN. PT VISITING c FAMILY THIS AFTERNOON. PT MORE ENGAGED THAN THIS AM. FAMILY MEETING c PALLATIVE CARE AND DR VALADEZ TODAY. PLAN TO MOVE TOWARDS COMFORT CARE AFTER DISCUSSIONS c PT'S BROTHER. PER MEETING, NO FURTHER BLOOD DRAWS, TRANSFUSION, COLONSCOPIES, NGT OR TITRATE OF LEVOPHED GREATER THAN CURRENT DOSE. SIPS OF WATER GIVEN, PT TOLERATED WELL. VSS. WILL CONTINUE TO MONITOR UNTIL REPORT TO ONCOMING NURSE.
--- NOTE | 2019-11-22 18:24 | NUR ---
MENTATION CHANGE AFTER FAMILY LEFT, HAD DISCUSSION c PT REGARDING CONTINUED CARE. PT A&OX 2. WHEN ASKED IF SHE KNOWS HOW SICK SHE IS, PT STATES "YES BUT I THINK THAT I CAN GET BETTER." WHEN ASKED IF SHE KNOWS WHAT CAUSED ILLNESS, PT STATES "MY DRINKING." PT EXPRESSES WISH TO LIVE. ASKED PT WHAT THE DIFFERENCE FROM THIS AM WHEN I WAS ASKING HER QUESTIONS AND THIS EVENING. PT STATES "THAT LADY CAME IN HERE AND TOLD ME THAT I WAS GOING TO ." ASKED PT IF SHE WAS READY TO AND SHE SAID NO. PT STATES THAT SHE UNDERSTOOD MY QUESTIONS THIS AM BUT DID NOT ANSWER THEM. ENCOURAGED PT TO PARTICIPATE IN ASSESSMENT SO THAT WE COULD PROPERLY ASSESS HER IN THE FUTURE. DISCUSSED THIS c ALBERTO, SCIENCE MANAGER WHO CALLED AND UPDATED DR VALADEZ.
--- NOTE | 2019-11-22 19:45 | NUR ---
ASSESSMENT/ASSUMED CARE PT LYING IN BED WITH HOB UP WATCHING TV. PT AWAKE AND ALERT. ABLE TO TELL ME HER NAME AND THAT SHE IS IN THE HOSPITAL, BUT UNABLE TO SAY WHAT CITY, DATE OR YEAR. LUNGS CLEAR BUT DECREASED IN THE BASES. RESP EVEN AND NONLABORED. HEART RATE REGULAR, BP STABLE ON LEVPHED AT 6 MCQ/MIN VIA PICC LINE TO LEFT UPPER ARM. PICC LINE DRSG INTACT, SITE CLEAR. BT+ ABD SOFT AND NONTENDER. DENIES N/V. SIPS OF WATER GIVEN. LAZAR CATH PATENT DRAINING CLEAR YELLOW URINE. FLEXI SEAL WITH DARK GREEN LIQUID STOOL DRAINING. EMANI CARE DONE AND ZINC OXY APPLIED TO BOTTOM. REPOSITIONED TO LEFT TO KEEP OFF BOTTOM. PT STATES,"I'M DOING ALRIGHT".
--- NOTE | 2019-11-23 03:07 | NUR ---
PAIN PT AWAKE REQUESTED PAIN MED FOR ABD PAIN. MED WITH [id number] MCQ. GIVEN 120 ML NECTURE THICK WATER VIA SPOON WITHOUT DIFFICUTLY.
--- NOTE | 2019-11-23 05:50 | NUR ---
SHIFT SUMMARY PT RESTING QUIETLY. WATCHING TV. AWAKE MOST OF THE NIGHT. MED WITH FENTANYL ONCE DURING THE NIGHT FOR ABD PAIN WITH GOOD RESULTS. TURNED SIDE TO SIDE TO KEEP OFF BOTTOM. ZINC OXY APPLIED AND ABD PADS TO BOTTOM CHANGED Q2HRS. CONT SEROUS DRAINAGE FROM WOUNDS TO BOTTOM. FLEXI SEAL DRAINING LIQUID STOOL. PICC LINE TO LEFT UPPER ARM, SITE CLEAR. LEVOPHED CONT AT 6 MCQ/MIN THROUGHOUT THE NIGHT. NO ACUTE CHANGE. REPORT TO ON COMING NURSE
--- NOTE | 2019-11-23 08:39 | NUR ---
CARE ASSUMED CARE AND REPORT ASSUMED FROM MARY WOLFF. PT CURRENTLY RECIEVING BEDBATH BY CNTHADDEUS. SHE IS ALERT AND ORIENTED TO SELF AND PLACE BUT DOES GET EASILY CONFUSED. CURRENTLY SINUSTACH, HR 100-110. LEVOPHED GTT INFUSING AT 6 MCG FOR LOW BP. AFEBRILE. SPO2 GREATER THAN 95% ON RA. LUNG SOUNDS CLEAR. PT ABLE TO SIT UPRIGHT AT 90 DEGREES AND IS FEEDING HERSELF. TOLERATED TAKING HER PILLS CRUSHED IN APPLESAUCE. ZINC OXIDE AND ABD PADS APPLIED TO BUTTOCKS AREA; SEE PICTURES. WILL CONTINUE TO MONITOR.
--- NOTE | 2019-11-23 13:02 | NUR ---
REASSESSMENT PT AWAKE AND ALERT, DOES COOPERATE WITH INSTRUCTIONS. CURRENTLY SITTING UPRIGHT IN BED FEEDING HERSELF. BOYFRIEND, HOA AT BEDSIDE; PT CONVERSING WITH HIM. LEVOPHED GTT REMAINS AT 6 MCG. NSR, HR 100-105. NO CHANGE IN RESPITORY ASSESSMENT. FAMILY CONFERENCE AT 1400. WILL CONTINUE TO MONITOR.
--- NOTE | 2019-11-23 16:00 | NUR ---
Met with Dr Dawson & RN just outside of and in pt's room per Dr's request. Reviewed family conference with Dr Hewitt and plans formulated based on pt's inability to be weaned off of pressors over the past nearly 4 weeks. Pt appeared very anxious during this conversation. It is unclear to me if she understood all of it but she was aware that we were talking about some of the challenges limiting her possibilities of recovery. I assisted RN with repositioning to oposite side lying position. Pt cries out in pain with bed mobility and again looks anxious and stressed with any conversation regarding her s/s or care. Rectal tube remains in place and buttock and rectal area seems to be the primary source of her pain. Sometimes if you ask her about her pain she will say "I hurt all over". Attempted some small talk with her after the Dr left to lighten/distract and lesson her anxiety. Pt remained quiet and staring straight ahead. She ate bites per RN & requested some preferred foods/fluids. Former SO left after lunch. Plan remains to meet with the family again at their request when they arrive. No visits from her brother yet today.
--- NOTE | 2019-11-23 16:15 | NUR ---
Family conference with pt's sister and mom again today. They are not ready to transition pt to comfort care at this time but feel they will be in the next couple to few days. Their brother continues to struggle with Reema's declining health and has not been able to come in and visit due to emotional distress. Family hopeful he will be able to in the next couple of days. Lilly, pt's sister, continues to be concerned re: what happens if pt survives for days to weeks after BP meds/pressors are discontinued and what that would mean for d/c planning, their access to Reema if she was discharged to a facility that would not allow visitors. Much time spent listening and supporting attempting to set realistic goals to focus on for today vs the many "what ifs" Lilly is focused on that may or may happen in the future. Family went in to spend time with Reema after our meeting. RN, PT and Railroad Signal Operator updated on family conference. Railroad Signal Operator visit requested for prayer and time with pt/family per family.
--- NOTE | 2019-11-23 18:32 | NUR ---
Spiritual care note: I met with pt, mom, and sister this afternoon. Marina appears a bit more alert, but is still slow to respond. At times she does not respond at all. For example, Family asked me to speak to pt again about her dire prognosis and wishes going forward. Marina states, "I want to fight." When asked if she understood that "fighting" may mean weeks or months in a custodial, that physicians are saying this is most likely her new baseline, and would she want to live the rest of her life like this?--Marina just stares blankly at me. I am uncertain she is able to understand her illness or prognosis. Family asked for prayer and Marina nodded 'yes.' Prayer provided. I will remain available and attempt to meet with family/pt in coming days.
--- NOTE | 2019-11-23 18:43 | NUR ---
SHIFT SUMMARY PT REMAINED IN BED ENTIRE SHIFT AND WAS TURNED Q2H. RECIEVED BEDBATH AND LINEN CHANGE AT START OF SHIFT. ZINC OXIDE APPLIED GENEROUSLY TO COCCYX AREA. COCCYX AREA IS EXCORIATED AND WEEPING. MULTIPLE FAMILY MEMBERS AT BEDSIDE TODAY WITH PALLIATIVE AND SPIRITUAL CARE. TOLERATED TAKING PILLS AND DRINKING NECTAR THICK LIQUIDS. DECREASED APPETITE. LEVOPHED GTT INFUSED AT 6 MCG; ATTEMPTED TO TITRATE DOWN BUT BP DROPPED. LEVOPHED CURRENTLY INFUSING AT 6 MCG, IN ADDITION TO PT TAKING ORAL MIDODRINE. NSR, HR 90-110 ENTIRE SHIFT. AFEBRILE. WILL GIVE BEDSIDE, HANDOFF REPORT TO JOSELIN RN.
--- NOTE | 2019-11-23 21:43 | NUR ---
PATIENT AWAKE WATCHING TV, SLOW TO ANSWER QUESTIONS, BUT MAKING NEEDS KNOWN. PATIENT ASSISTING WITH REPOSITIONING . BUTTOCKS CONTINUES TO BE RED AND WEEPING. RECTAL TUBE REMAINS IN PLACE DRAINING LIQUID BROWN STOOL. GENERALIZED EDEMA CONTINUES. HYPOTENSION CONTINUES, LEVOPHED DRIP INFUSING AT 6 MCG.
--- NOTE | 2019-11-24 05:39 | NUR ---
SUMMARY PATIENT AWAKE MOST OF THE NIGHT. ASSISTING WITH REPOSITIONING T/O NIGHT. ABD PADS TO BUTTOCKS CHANGED Q2HR WITH TURNS AND ZINC OXIDE PLACED TO RED AREAS, APPEARS LESS IRRITATED THIS AM, BUT CONTINUES TO OOZE. PATIENT KIRILL PO THICKENED WATER WELL. RECTAL TUBE IN PLACE DRAINING SMALL AMT OF LIQUID BROWN STOOL. LEVOPHED CONTINUES AT 6 MCG.
--- NOTE | 2019-11-24 08:56 | NUR ---
ASSUMED CARE OF PT AT 0700. PT AWAKE IN BED WITH COMPLAINTS OF ABD PAIN. UNABLE TO SCORE PAIN D/T COGNITIVE DEFICITS. FENT RECENTLY GIVEN FOR PAIN; BP SLIGHTLY LOWER AFTER FENT. ABD FIRM, DISTENDED, WITH TYMPANIC BT'S T/O. PT DECLINES BREAKFAST D/T ABD DISCOMFORT. PT SLOW TO ANSWER QUESTIONS, VOCABULARY IS LIMITED TO 2-3 WORD ANSWERS. PT ORIENTED TO SELF AND YEAR ONLY. UNABLE TO STATE WHERE SHE IS AT. LEVOPHED INFUSING AT 6MCG. MIDORINE 15MG GIVEN. PT ABLE TO SWALLOW PO MEDS WITH SUPERVISION AND INSTRUCTION USING APPLESAUCE.
--- NOTE | 2019-11-24 10:22 | NUR ---
Pal Care supportive visit to pt after EMR reviewed and current status info obtained from pt's RN. Pt awake in bed, more somber today. She is reporting more pain and also exhibiting more nonverbal painful behaviors. She is grunting with increased resp rate and when asked if her pain is worse she says yes. RN states analgesic rx is lowering pt's BP and so judicious use of meds for pain per eMAR being used. I had good conversation with pt. She reports she is feeling worse and acknowledges that this is scary. She said, "I just want to know if I am going to or not". I asked her if there was anyone she wanted to see or someone she needed to see. We talked about her family and visits. She could not tell me her brother's name. She is grateful for her sister and mom visiting nearly every day. I offered to pray with her or have the Lokie Engineer come to be with her. She asked if I would say a prayer for her so I did. I offered to get a warm wash cloth to wash her face and she said, "I'll get up and wash my face myself in a little bit". I spoke with RN, ST & PT re: family plan to transition to comfort care after additional family visits. Per family, the cardiac medications and pressors would be discontinued at that time and only interventions to treat pt's s/s would be employed to ensure pt's comfort. They would still want an abdominal tap if ascites became very uncomfortable for Reema again.
--- NOTE | 2019-11-24 11:36 | NUR ---
DR KAT IN TO SEE PT. PT DECLINED TO BE TAPPED/PARACENTESIS. PO PAIN MEDS TO BE ORDERED. OKAY TO GIVE FENT FOR PAIN DESPITE LOWER BP'S PER . PT'S BOYFRIEND AT BEDSIDE.
--- NOTE | 2019-11-24 15:02 | NUR ---
Pal Care note: Pt's brother was able to come in and had a good visit with Reema. I was accompanying another family thru ICU poole and found sister Lilly attempting to visit today also. After ringing to ICU desk and waiting, I checked for Lilly and found that pt has already had her one visitor today per COVID visiting guidelines limiting patients to one person per day. ICU staff had made exceptions for family for the past week or two due to their request for family conferences for decision making regarding the goals of care. Lilly is saying that there are multiple family members that she wants to pass on messages from and that would like to see Reema. ICU is not able to accommodate any further exceptions to the visiting policy at this time. Family is aware that if Reema is transitioned to comfort care and moved to another unit that up to four visitors may be with her. Options of coming back tomorrow as Reema's one daily visitor or transitioning pt to comfort care offered. Lilly was very upset and verbalized that she felt like family's arm was being twisted to place pt on comfort care. I reiterated that our visiting rules due to COVID precautions are being enforced for all pts/families and not just for Reema. Also reviewed that family had stated Friday and yesterday that they would like one or two more days to visit with Reema before discontinuing pressors and transitioning to comfort care. Lilly states now that family has talked and would now like "a few" more days beyond that two day timeframe discussed earlier. I updated Lilly on Reema's increased pain and s/s noted today and that she declined to have an abd tap done to relieve ascites when asked her if she would like them to do that. Lilly was invited to call the ICU for updates & Pediatric Np/Pal Care if we could be of any help to them. ICU staff will call family with any changes to Reema's condition. Pal Care & Pediatric Np to follow for supportive care to Reema and family.
--- NOTE | 2019-11-24 17:23 | NUR ---
PT GIVEN ONE DOSE OF PO PAIN MED WITH GOOD EFFECT. PT ABLE TO EAT MORE OF LUNCH, DENIED ABD PAIN DURING LUNCH (ABD PAIN CAUSED HER NOT TO EAT BREAKFAST). PT DID SLEEP SOUNDLY FOR A COUPLE OF HOURS IN WHICH HER BP WAS MUCH LOWER W MAPS 50-60. PT EASILY AROUSES TO VOICE. DR KAT CALLED AND UPDATED R/T HYPOTENSION. ONE TIME DOSE OF ALBUMIN ORDERED PRN FOR SBP IN 60'S THAT IS SUSTAINED >ONE HOUR. PT'S SISTER ANNITA CALLED AND GIVEN UPDATE W PT'S PERMISSION.
--- NOTE | 2019-11-24 19:40 | NUR ---
ASSUMED CARE RECEIVED REPORT FROM MARIELLA DURAN. PT IS ALERT AND ORIENTED TO SELF. SHE CURRENTLY DENIES PAIN. SHE IS IN SINUS TO SINUS TACH, RATE 90-105. STABLE BP ON LEVOPHED AT 6 MCG/MIN. SHE HAS A PATENT RECTAL TUBE THAT HAS LIQIUD BROWN STOOL IN THE COLLECTION BAG, AND SHE HAS A PATENT LAZAR CATHETER DRAINING CLOUDY, ORANGE URINE. SCDs ARE ON BILATERAL CALVES. SHE IS ON ROOM AIR, SAT'ing HIGH 90s. BED LOW AND LOCKED. CALL LIGHT WITHIN REACH.
--- NOTE | 2019-11-25 06:48 | NUR ---
SHIFT SUMMARY PT SLEPT FOR MAJORITY OF NIGHT, SHE IS ALERT AND ORIENTED TO SELF, FAMILY AND SOMEWHAT OF HER SURROUNDINGS. SHE SOMETIMES WILL ASK ME "HOW AM [I] DOING?" BUT OTHER TIMES WON'T RESPOND TO WHAT I ASK, ASIDE FOR SIMPLE YES/NO QUESTIONS. SHE IS IN SINUS RHYTHM, RATE 90-105, BP SOFT BUT STABLE (SBP WAS NEVER IN THE 60s, SO I DIDN'T HAVE TO GIVE ALBUMIN LAST NIGHT). SHE IS ON ROOM AIR, SAT'ING MID TO HIGH 90s. SHE DENIED PAIN TO ME ALL NIGHT, ASIDE DURING TURNS, BUT REPORTED AFTERWORD SHE WASN'T IN PAIN. I CHANGED OUT HER ABD PAD LAST NIGHT, AND ADDED MORE ZINC OXIDE TO HER EMANI AREA. WHEN CHANGING HER PICC LINE IT CAME OUT TO 5 CM, FROM 0 CM. EACH PORT DOES FLUSH WELL, AND THE RED PORT DOES SHOW BLOOD RETURN, BUT VERY SLUGGISH. BED IS LOW AND LOCKED. CALL LIGHT WITHIN REACH.
--- NOTE | 2019-11-25 08:00 | NUR ---
REPORT RECEIVED REPORT FROM MARIELLA CALVERT. ASSUMED CAER. PT RESTING IN BED, AWAKE, LAYING ON R SIDE. EVEN, UNLABORED RESPIRATIONS NOTED. LAZAR IN PLACE, DRAINING CLEAR YELLOW URINE. RECTAL TUBE IN PLACE WITH MINIMAL OUTPUT. PT IS MORE ALERT TODAY AND RESPONDING MORE QUICKLY. PT TAKES SPOONS FULL OF THICKENED JUICE INDEPENDENTLY WITH RN AT BEDSIDE. TAKES PO MEDS WHOLE WITH APPLESAUCE, WITHOUT INCIDENCE. EDUCATED/ COACHED PT TO SWALLOW WITH CHIN TUCKED. PT FOLLOWING COMMANDS WELL. DIFFICULTY SWALLOWING THIAMINE TAB, WHICH IS THE LARGEST OF HER PILLS. NO COUGHING OR CHOKING NOTED. DENIES ADDITIONAL NEEDS
--- NOTE | 2019-11-25 10:30 | NUR ---
CONSULTED WOUND TEAM REGARDING PT'S BUTTOCKS/ EMANI/ GROIN. MARIELLA MCCANN COMES TO ASSESS AND ADVISE. HER TEAM WILL COME OVER CHANGE DRESSING. ABD PADS REMOVED. CLEANSED AND DRIED SKIN. APPLIED NYSTATIN POWDER TO SKIN. APPLIED PURACOL TO OPEN SKIN. ABD PADS APPLIED WELL. PT WAS PREMEDICATED FOR PAIN WITH PO OXY, SEE MAR FOR DRESSING CHANGE. PT WAS STILL RATHER PAINFUL, BUT STATES PAIN SETTLED DOWN SHORTLY AFTER DRESSING CHANGE.
--- NOTE | 2019-11-25 13:00 | NUR ---
1300 - PT'S SISTER, ANNITA IS AT BEDSIDE FOR VISIT AND UPDATE OF STATUS. INFORMED ANNITA, PT HAS BEEN MORE ALERT, NEW WOUND CARE PLAN, AND ASSISTING SELF WE FEEDING AT TIMES. ANNITA ASSISTS PT WITH EATING LUNCH WHILE IN HIGH FOWLERS. PT TAKES PO MEDS WHOLE 1 AT A TIME WITH RICARDAE WITH MODERATE DIFFICULTY SWALLOWING PILLS. NO COUGHING AND CHOKING NOTED. 1320 - KYLE, PT'S BOYFRIEND CALLS FOR AN UPDATE AND ASKED TO LET PT/ SISTER KNOW THAT HE CALLED. 1325 - PT RESTING IN BED, VISITING WITH SISTER. PT STATES SHE IS AGREEABLE TO PARACENTESIS AT THIS TIME AND STATES UNDERSTANDING THIS WILL LIKELY HELP WITH HER ABD PAIN. C/O 08/19 ABD PAIN. LAST PO PAIN MED ~1100. CONCERNED ABOUT GIVING PRN FENTANYL BEFORE PT IS ABLE TO SPEAK TO MD ABOUT PARACENTESIS IT HAS CAUSED SIGNIFICANT DROWSINESS. 1333 - CALLED DR KAT. INFORMED MD OF PT'S DECISION FOR PARACENTESIS. MD REQUESTING PALLIATIVE CARE TO COME SPEAK TO PT/ FAMILY. ALSO NOTIFIED FOR RUE PICC BEING PULLED OUT 5 CM - NEW ORDER FOR CXR. MD INFORMED OF WOUND CARE RECOMMENDATIONS. 1339 - CALLED [facility], [facility]IA [facility]. SHE IS NOT IN HOUSE TODAY. 1343 - CALLED PALLIATIVE CARE AND SPOKE TO KELIN, WHO IS COVERING FOR [facility] TODAY. 0155 - KELIN, PALLIATIVE CARE AT BEDSIDE TO SPEAK TO PT/ FAMILY
--- NOTE | 2019-11-25 15:00 | NUR ---
CXR OBTAINED TO VERIFY PICC PLACEMENT. PICC CONTINUES TO BE AT AN ACCEPTABLE LOCATION FOR USE, SEE REPORT. NEW ORDER FOR PARACENTESIS, WHICH WILL BE SCHEDULED FOR TOMORROW. PT RESTING COMFORTABLY IN BED.
--- NOTE | 2019-11-25 15:12 | NUR ---
Requested by nursing to meet with Marina and her sister, Lilly. Marina is awake and is agreeable to have a paracentesis done today. Nursing reports she declined this procedure yesterday. Lilly, her sister, is at the bedside. Marina last had a paracentesis about 9 days ago and had 6 liters of fluid removed. She is c/o abd pain, distention, and frequent "stomach growling." Abd is firm, distended and tender to touch. Explained procedure and risks/benefits of paracentesis. Discussed side effects of recurrent fluid collection, hypotension, bleeding. Marina and Lilly's questions answered. Lilly inquired re: pleurX drain placement. 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 Discussed that Marina is not currently a candidate for a pleurX placement. After discussion, Marina states that she would like to proceed with the paracentesis. Discussed goals of care and asked Marina to consider what would be an acceptable quality of life. Asked Marina would she consider her current situation to be a quality that is acceptable to her? Marina stated that if she was always in bed and had to be dependent on IV medications that this would likely not be an acceptable quality of life. It is difficult to understand if Marina fully understands the gravity of her situation. Lilly stopped this television script writer in the hallway after our meeting in the room. Lilly states she knows the likelihood of a good outcome is very small but she remains hopeful. Spoke with Dr. Pichardo and updated her on conversation with Marina and Lilly. Dr. Pichardo states she will place orders in the EMR. Update nursing. PC to continue to follow.
--- NOTE | 2019-11-25 18:29 | NUR ---
Spiritual care note: Per pt's sister's request, I offered prayer for healing at bedside. Andrea seemed a bit brighter today, speaking in full sentances albeit slowly. [employer] services will remain available.
--- NOTE | 2019-11-25 19:07 | NUR ---
REPORT GIVEN TO HS RN'S TIFFANIE. PT RESTING IN BED. LEVOFED CONTINUES TO RUN ORDERED
--- NOTE | 2019-11-25 19:30 | NUR ---
SHIFT ASSESSMENT ASSUMED CARE AT 1900. REPORT RECEIVED FROM MARIELLA SANTOS. PT IN BED ON R SIDE. ALERT TO PERSON, CANNOT TELL ME WHERE SHE IS OR WHAT HER BIRTHDAY IS. VERY SLOW TO RESPOND, AND FORGETFUL WHEN A QUESTION IS ASKED. LS CLEAR BUT DIMINISHED. O2 SATS >90% ON RA. SINUS/ SINUS TACH ON THE [employer] MARKETING INTERN. ABD FIRM AND DISTENDED, SCHEDULED FOR PARACENTESIS TOMORROW. LAZAR CATH PATENT, DRAINING YELLOW URINE. DIGNI SHIELD IN PLACE, DRAINING BROWN, LIQUID STOOL. WILL CONTINUE TO MONITOR.
--- NOTE | 2019-11-26 05:49 | NUR ---
SHIFT SUMMARY PT REMAINS ALERT TO PERSON. HER ORIENTATION WOULD CHANGE T/O THE NIGHT, CONSISTENTLY KNOWING WHO SHE WAS BUT NOT SURE OF LOCATION OR YEAR. SINUS/SINUS TACH ON THE MONITOR, LEVO TITRATED TO 4MCG/MIN TO MAINTAIN MAP >60. O2 SAT REMAINS >90% ON RA. PT CONTINUES TO HAVE SIGNIFICANT PAIN WITH WOUND CARE AND TURNS. TREATED c PRN PAIN MEDICATIONS. LAZAR CATH DRAINING YELLOW, CLOUDY URINE. MINIMAL TO NO OUTPUT VIA RECTAL TUBE.
--- NOTE | 2019-11-26 08:40 | NUR ---
ASSUMED CARE OF PT AT 0700. REPORT FROM JUAN/CASH WOLFF. PT RESTING IN BED. WAKES c VERBAL STIMULI. PT ORIENTED TO SELF ONLY. STATES YEAR IS 2012. FOLLOWS SIMPLE COMMANDS. UNABLE TO REORIENT. LUNGS DIMINISHED THROUGHOUT. ABD FIRM, ROUND, AND TENDER. HYPOACTIVE BT. POOR APPETITE. ABLE TO TAKE PO MEDS CRUSHED c APPLESAUCE, REFUSES REST OF BREAKFAST. PT PULLED OUT PICC LINE THIS AM. LAZAR PATENT AND DRAINING TO GRAVITY. RECTAL TUBE IN PLACE AND DRAINING TO GRAVITY. LEVOPHED PLACED ON STANDBY D/T NO ACCESS. MIDODRINE PO GIVEN. PLAN FOR POSSIBLE PARACENTESIS TODAY. PT UNABLE TO CONSENT TO PROCEDURES D/T CONFUSION. CALL PLACED TO DENNY, PT'S MOTHER. SHE STATES THAT SHE WANTS BOTH THE PARACENTESIS COMPLETED AND IV ACCESS OBTAINED FOR MEDS. WILL DISCUSS c PALLATIVE CARE AND DR KAT. WILL CONTINUE TO MONITOR.
--- NOTE | 2019-11-26 17:39 | NUR ---
SHIFT SUMMARY PT ACCIDENTLY PULLED PICC LINE TODAY. DISCUSSED NEED FOR BOTH IV ACCESS AND PARACENTESIS c PT, FAMILY, [facility] FROM [facility] AND DR KAT. PLAN TO REEVALUATE FOR PARACENTESIS TOMORROW. PT STATES SHE WANTS TO THINK ABOUT IT UNTIL TOMORROW. WILL NOT PLACE IV AT THIS TIME PER DR VALADEZ PREVIOUS PLAN. BP STABLE s LEVOPHED THIS SHIFT. MEDICATED c MIDODRINE 15 MG TID. PT CONTINUED TO HAVE POOR APPETITE THIS SHIFT. RECTAL TUBE REMOVED D/T NO BM SINCE 11/23 DAY SHIFT. CONTINUED c RECOMMENDED WOUND CARE PER WOUND CARE NURSE. LAZAR REMAINS PATENT AND DRAINING TO GRAVITY. DISCUSSED TRANSFER TO PCU c DR KAT. WILL REMAIN IN ICU UNTIL PLAN FOR PARACENTESIS AND IV ACCESS IS FINALIZED. WILL CONTINUE TO MONITOR UNTIL REPORT TO ONCOMING NURSE.
--- NOTE | 2019-11-26 21:00 | NUR ---
INITAL SHIFT ASSESSMENT PT IS RESTING IN BED WITH EYES CLOSED UPON THIS RN COMING INTO ROOM. PT WOKE EASILY TO VERBAL STIMULI. SHE IS ABLE TO ANSWER QUESTIONS, BUT IS SLOW TO ANSWER. SHE ALSO DOES NOT ALWAYS ANSWER QUESTIONS ASKED. SHE DOES VERBALLY DENY PAIN. HOWEVER WITH THE TURN AT THIS TIME WELL CLEANING UP HER BUTTOCKS SHE APPEARED TO BE IN PAIN BC SHE YELLED OUT AND WANTED US TO STOP. HER BUTTOCKS IS EXCORIATED. DRAINING YELLOW/RED LIQUID. NEW ABDS APPLIED. CATH CARE DONE AND THERE IS EXCORIATION TO HER INNER THIGHS THAT IS ALSO DRAINING. ABD PLACED BETWEEN THIGHS WELL. VITALS ARE STABLE. SHE DOES HAVE A LOW BP. WILL CON'T TO MONITOR AND IF NEEDED CALL MD FOR FOR A PRN DOSE OF MIDORINE PO. OFFERED PT LIQUIDS OR FOOD AT THIS TIME SHE REFUSED. PT DOES NOT HAVE IV ACCESS AT THIS TIME AND MD AWARE. LAZAR CATH IN PLACED DRAINING DARK YELLOW URINE. CALL LIGHT IN REACH AND REVIEWED USE WITH PT. WILL CON'T TO MONITOR AND KEEP PT SAFE T/O REMAINDER OF SHIFT.
--- NOTE | 2019-11-26 22:12 | NUR ---
LOW BP PT HAS A SOFT BP. CALLED MARY ALICE JULIEN FOR ORDERS TO HAVE HER MIDORINE CHANGED TO Q8 HRS.
--- NOTE | 2019-11-27 05:41 | NUR ---
SHIFT SUMMARY PT CON'T TO BE STABLE WITH NO CHANGES FROM BASELINE. SHE IS COOPERTIVE WITH CARE AND FOLLOWS SOME DIRECTIONS. SHE IS MORE ALERT THIS AM AND TALKATIVE. T/O SHIFT SHE OFF AND ON WILL PULL OFF HER MONITORS, BP CUFF AND HER BLANKETS. VITALS ARE STABLE. HOWEVER HER BP IS SOFT T/O SHIFT. HOWEVER PT IS NOT SYMPTOMATIC WITH LOW BP'S. URINE OUTPUT THROUGH LAZAR CATH WAS VERY MINIMAL. TURNED PT EVERY TWO HOURS AND CHANGED HER ABDS TO COCCYX. NO CHANGES TO SKIN QUALITY TO COCCYX. CALL LIGHT IN REACH. WILL CON'T TO MONITOR AND KEEP PT SAFE TILL REPORT TO ONCOMING RN.
--- NOTE | 2019-11-27 09:51 | NUR ---
TRANSFER TO PCU ROOM ASSIGNMENT TO PCU 1. AWAITING TO GIVE REPORT. ABDULLAHI IN PALATIVE CARE NOTIFED OF THE PT BEING TRANSFERED, WHEN MONTHER STATES SHE WILL BE IN TO SEE PT, AND THE PLAN IF PT IS TO RECEIVE PARACENTESIS FOR COMFORT.
--- NOTE | 2019-11-27 17:31 | NUR ---
TRANSFER NOTE/SHIFT SUMMARY RECEIVED REPORT FROM MARIELLA LOMAX IN ICU. PT TO ROOM VIA BED; LIFT USED TO PLACE PT IN RECLINER. PT ORIENTED TO ROOM AND CALL LIGHT. PT ALERT; ORIENTED TO SELF; AT TIMES PT ATTEMPTS TO ANSWER QUESTIONS, TALKING IN THIRD PERSON OR NOT MAKING SENSE; OTHERWISE PT JUST STAIRS AT STAFF. PT DENIES PAIN WHEN ASKED IF SHE IS "HURTING" ANYWHERE. NO S/SX OF DISTRESS NOTED. SPO2 >94% ON RA. PT HYPOTENSIVE; AT BASELINE; OTHER VSS. NO OTHER ACUTE CHANGES NOTED DURING SHIFT. WILL CONTINUE TO MONITOR UNITL REPORT GIVEN TO ONCOMING RN.
--- NOTE | 2019-11-27 19:15 | NUR ---
ASSUMED CARE OF PATIENT, REPORT RECEIVED FROM DERRICK WOLFF. PT SITTING UP IN BED WATCHING TV, RESPONDS TO NAME BEING CALLED. CALL LIGHT WITHIN REACH
--- NOTE | 2019-11-28 05:20 | NUR ---
SHIFT SUMMARY PT ALERT, ORIENTED TO SELF. FOLLOWS BASIC COMMANDS, SLOW TO ANSWER SIMPLE QUESTIONS.NO ACUTE RESP DISTRESS, HR IN 100s, REMAINS ON TELE. ABDOMEN FIRM WITH POSITIVE BOWEL SOUNDS. CONTINUES TO HAVE ANASARCA AND REMAINS JAUNDICED. URINARY CATH PATENT WITH SMALL AMOUNT DARK YELLOW URINE. REPOSITIONED THROUGHOUT SHIFT. WILL CONTINUE TO MONITOR
--- NOTE | 2019-11-28 10:33 | NUR ---
AM NOTE PT ALERT; ANSWERING QUESTIONS IN 1-4 WORD APPROPRIATELY; SLOW TO RESPOND. ORIENTED TO SELF. PT DENIES PAIN, CHEST PAIN, SOB, NASUEA AND DIZZINESS. LS DIMINISHED. NO S/SX OF DISTRESS NOTED. BP WNL; OTHER VSS. WILL CONTINUE TO MONITOR.
--- NOTE | 2019-11-28 17:41 | NUR ---
SHIFT SUMMARY PT REPORTS PAIN TO ABD; MEDICATED x1 WITH RELEIFE NOTED. NO OTHER ACUTE CHANGES NOTED. VSS. WILL CONTINUE TO MONITOR UNTIL REPORT GIVEN TO ONCOMING RN.
--- NOTE | 2019-11-29 05:49 | NUR ---
SHIFT SUMMARY NO ACUTE CHANGES IN STATUS, PT ALERT AT TIMES, TRACKS MOVEMENTS AND ANSWERS OCCASIONALLY TO NAME. FREQUENTLY PULLS OFF TELEMETRY WIRES.REPOSITIONED EVERY 2 HRS THOUGHOUT SHIFT. WILL CONTINUE TO MONITOR
--- NOTE | 2019-11-29 07:35 | NUR ---
RECEIVED REPORT FROM MARIELLA COLLINS. ASSUMING CARE OF PT AT THIS TIME. PT IS RESTING QUIETLY IN BED, LOOKING AROUND ROOM,
--- NOTE | 2019-11-29 15:50 | NUR ---
Ethics consult order reviewed and discussed with the ordering provider, and the seed specialist. Concerns were expressed with respect to a multi-part discrepancy between the treatment plan expectations of the family, the POLST document content, and the principals wishes, as communicated in lucid moments to the hospitalist. The matter is currently trending favorably and thought to likely be resolved. I will remain available to provide advisory support and guidance as needed. Thank you for this consult. Ethan Suazo Th.D. Cat Sitter, Sharon and Ethics
--- NOTE | 2019-11-29 16:43 | NUR ---
Spiritual care note: No family present at time of visit. Marina just stared at me when I spoke to her. she appears much less lucid than last week. But she looks well cared-for and comfortable. Prayer provided. I will remain available to pt and family.
--- NOTE | 2019-11-29 18:49 | NUR ---
SHIFT SUMMARY: NO ACUTE CHANGES TO PT'S CONDITION. PT REPOSITIONED FOR COMFORT FREQUENTLY T/OUT SHIFT, TAKES MEDICATIONS CRUSHED IN APPLESAUCE W/OUT DIFFICULTY. PT CONTINUES TO ANSWER QUESTIONS SLOWLY OR NOT AT ALL, COOPERATIVE WITH CARE, BUT DIFFICULT TO FULLY UNDERSTAND PT'S DESIRES. PER MARIO IN PALLIATIVE CARE, PT'S FAMILY IS TO MEET WITH DOCTOR TO DETERMINE PT'S FURTHER NEEDS AND PLAN OF CARE. WILL CONTINUE TO MONITOR AND TREAT ACCORDINGLY UNTIL CHANGE OF SHIFT.
--- NOTE | 2019-11-30 06:34 | NUR ---
SHIFT SUMMARY PATIENTS STATUS REMAINS UNCHANGED. ALERT AT TIMES, RESPONDS TO SIMPLE COMMANDS SOMETIMES.TOLERATES NECTAR THICK LIQUIDS/JELLO/CUSTARDS WITHOUT ANY S/S CHOKING OR ASPIRATION. ABDOMEN FIRM AND DISTENDED, URINARY CATHETER PATENT WITH DARK YELLOW URINE. REPOSITIONED THROUGHOUT SHIFT. WILL CONTINUE TO MONITOR
--- NOTE | 2019-11-30 11:00 | NUR ---
ASSUME CARE THIS AM: PT IN BED UPON RECEIVING REPORT FROM NOC RN. PT ALERT ABLE TO RESPOND TO QUESTIONS BUT SLOW, UNABLE TO STATE FULL NAME AND BUT IS AWARE OF SURROUNDINGS, FOLLOWS DIRECTION. PT AWARE OF THE PLAN STILL WOULD LIKE TO GO COMFORT CARE, TALKED TO PALLIATIVE CARE RN THIS AM FAMILY TO COME IN AT 11:30 FOR FURTHER DISCUSSION. PT WITH POOR APPETITE REFUSED TO EAT THIS MORNING HAD SOME NECTAR THICK WATER AND APPLEJUICE, TOOK MEDS CRUSHED WITH APPLESAUCE WITH NO ISSUES. PT REPOSITIONED Q2HRS, PURACOL DRESSING APPLIED ON PRESSURE WOUND ON BUTTOCKS COVERED WITH ABD PADS. VITALS HRR ST 90-100'S, BP SYTOLIC 90-100'S, SATS ABOVE 98% ON RA, AFEBRILE. NO OTHER ISSUES ENCOUNTERED AT THIS TIME, WILL MONITOR PT.
--- NOTE | 2019-11-30 17:10 | NUR ---
PT ARRIVED FROM PCU. SHE WAS SET UP IN HER NEW ROOM AND INTRODUCED TO HER NURSING STAFF. PT IS ALERT BUT NOT ORIENTED. SHE IS RESTIN CONFORTABLY IN BED WITH CALL LIGHT IN REACH.
--- NOTE | 2019-11-30 17:31 | NUR ---
STATUS CHANGE TO MEDICAL WITH NO TELE PT TRANSITIONED TO COMFORT CARE WITH ORDERS POSS GOING HOME WITH HOSPICE CARE. FAMILY WAS IN TO VISIT. PT HAD SMALL LOOSE STOOL X3 FOR THE SHIFT PURACOL DRESSING DIDNT STAY AND WAS LEFT OPEN TO AIR. PT WAS MEDICATED WITH ROXANOL 10MG WHEN PT WAS LAST CLEANED AND CHANGED. NO OTHER ISSUES ENCOUNTERED FOR THE SHIFT, PT TRANSFERRED TO ROOM 330 REPORT GIVEN TO ZABRINA WOLFF, PT ACCOMPANIED VIA HOSPITAL BED.
--- NOTE | 2019-11-30 18:08 | NUR ---
Spiritual care note: Participated in family meeting with Barbara palliative care RN. Pt's sister and mom appear to grasp Andrea's poor prognosis and are in agreement to proceed with comfort measures only/hospice. Facilitated prayer at [facility]. Andrea was slightly more alert today. she denied pain/needs. I will remain available.
--- NOTE | 2019-11-30 19:28 | NUR ---
SLEEPING INTERMITTENTLY IN BED WITH HOB ELEVATED. NO NOTED S/S ACUTE DISTRESS. CALL LIGHT IN REACH. C-DIFF PRECAUTIONS MAINTAINED
--- NOTE | 2019-11-30 22:30 | NUR ---
RESTING QUIETLY. CALL LIGHT IN REACH.
--- NOTE | 2019-11-30 23:16 | NUR ---
REMAINS ON COMFORT CARE. RESTING QUIETLY. NO NOTED SIGNS OF PAIN. WILL CONTINUE TO MONITOR/ASSESS. CALL LIGHT IN REACH
--- NOTE | 2019-12-01 00:31 | NUR ---
RESTING QUIETLY. NO NOTED DISTRESS. CALL LIGHT IN REACH
--- NOTE | 2019-12-01 00:33 | NUR ---
RESTING QUIETLY. HOB ELEVATED. REPOSITIONED PER COMFORT DICTATES. CALL LIGHT IN REACH
--- NOTE | 2019-12-01 07:17 | NUR ---
RESTING QUIETLY, REPOSITIONED AND CHANGED - INCONT OF FECES - SM AMT. ISOLATION PRECAUTIONS MAINTAINED. CALL LIGHT IN REACH
--- NOTE | 2019-12-01 07:18 | NUR ---
RETING QUIETLY. CALL LIGHT IN REACH
--- NOTE | 2019-12-01 07:19 | NUR ---
AWAKE, LOOKING AT CEILING. NO NOTED DISTRESS. CALL LIGHT IN REACH
--- NOTE | 2019-12-01 07:19 | NUR ---
RESTING QUIETLY. CALL LIGHT IN REACH
--- NOTE | 2019-12-01 10:19 | NUR ---
PAL CARE COMFORT CARE - Pt awake, slow to respond and frequently did not respond to simple questions. She appears scared or anxious. She denies pain or feeling anxious, eventually, when asked by me and her nurse. Nurse and I changed her position in bed to left side leaning to keep pressure off of bottom. No family present at this time. Case conferenced with RN, , Vegetable Harvest Worker and CM. Some interventions d/c'd per comfort care orders and discussed current medications and plans with . Pt is not always awake/alert enough to swallow PO medications. CM working with [facility] and family on placement options with hospice to follow. Supportive visits to continue.
--- NOTE | 2019-12-01 18:27 | NUR ---
Spiritual care note: Each time I saw Marina today, she was alone in room and sleeping. She did open eyes to presence and denied pain/fear. "I'm doing good." Then she would stare at cieling and not respond. Prayer provided. I will remain available to pt and family.
--- NOTE | 2019-12-01 19:18 | NUR ---
SHIFT SUMMARY PT IS AO AND SAYS ONE WORDED SENTENCES. PT DENIES PAIN, N/V, ANXIETY, SOB. PT HAS BEEN REPOSITIONED Q2H. PT HAS WOUND ON BOTTOM, PICTURES IN CHART UPDATED TODAY. FAMILY WAS IN TO SEE PT TODAY. PALLIATIVE CARE VISITED PT THIS SHIFT. PT IS IN BED, CALL LIGHT IN REACH.
--- NOTE | 2019-12-02 11:46 | NUR ---
[facility] CARE COMFORT CARE VISIT - Pt awake, staring at ceiling. Able to converse a little bit better today. She states there are two cats, who were with her in the bed but they have fallen off and wants me to look for them. I adjusted bedding and showed her there were no cats in the bed. We talked about her cats at home and I employed distraction conversation about family and music. Multiple family members visited yesterday. No visitors present currently. Pt denies pain. She appears anxious. She is consistent in her request for help to look for the cats she believes were in bed with her. RN to talk to Dr about tx/cream for wounds on her bottom. FASHION PATTERNMAKER states pt was just turned to opposite side. Smtih with dk yellow urine noted. Pt is not complaining of pain like she was a week ago. Reported on my visit to pt's RN. RN will call me if family would like me to return while they are visiting.
--- NOTE | 2019-12-02 17:11 | NUR ---
Spiritual care note: I met with Marina's sister, Lilly, and her today. Lilly reports peace with plan of care and is pleased that her sister looks peaceful. Marina appears calm and minimally responsive. Nursing doing great job with her. Prayer provided for a peaceful transition. Family appreciative. Customer Contact Specialist services will remain available.
--- NOTE | 2019-12-02 19:24 | NUR ---
SHIFT SUMMARY PT ALERT. PT MEDICATED FOR PAIN X1 THIS SHIFT. PT HALLUCINATING AND SEEING CATS ON THE BED. FAMILY IN ROOM AND STATES PT OWNS CATS AND SEEMS TO BE MISSING THEM. PT MORE VERBAL TODAY THAN YESTERDAY. PT TURNED Q2H. PT DENIES N/V, SOB, ANXIETY. PT IN BED, CALL LIGHT IN REACH, BED IN LOW POSITION.
--- NOTE | 2019-12-03 03:33 | NUR ---
SHIFT SUMMARY PATIENT HAD NO ACUTE CHANGES OBSERVED. ON COMFORT CARE AND BEDREST. MOSTLY NON-VERBAL WITH A FEW WORDS AT TIMES. LAZAR PATENT AND DRAINING TO GRAVITY. NO IV ACCESS. NO S/SX OF PAIN, SOB, AND N/V. CALL LIGHT IN REACH. BED IN LOWEST POSITION. WILL CONTINUE TO MONITOR UNTIL DAY SHIFT NURSE ASSUMES CARE.
--- NOTE | 2019-12-03 17:38 | NUR ---
Comfort Measures: Pt resting comfortably in bed, appears to be sleeping. Respirations even and unlabored. Medications reviewed and remain appropriate. No other concerns.
--- NOTE | 2019-12-03 17:49 | NUR ---
SHIFT SUMMARY PATIENT IS ON COMFORT CARE. PATIENT MEDICATED FOR PAIN ONCE THIS SHIFT. PATIENT MOSTLY NON-VERBAL, YET WILL ANSWER WITH SIMPLE RESPONSES. PATIENT TURNED REGULARLY THIS SHIFT. PATIENT DENIES NEEDS THROUGHOUT THIS SHIFT. PATIENT HAD VISITORS THIS AFTERNOON. PATIENT RESTING IN BED THROUGHOUT THIS SHIFT.
--- NOTE | 2019-12-03 23:06 | NUR ---
MEDICATED FOR SUSPECTED PAIN WITH 10 MG ROXINOL SL AWAIT EFFECT.
--- NOTE | 2019-12-04 01:16 | NUR ---
PT has multiple open areas buttocks & rt inner thigh groin present. Wound care for sm amt of serosang drainage completed. PT is nonverbal tonight but winces with touch to area. Continues on comfort care for end stage liver disease.
--- NOTE | 2019-12-04 05:21 | NUR ---
PT continues calm & quiet. Wound care to open areas on bilat buttock & inner thigh. PT says few words no oral intake. ibrahim cath patent draining orange cloudy urine. Medicated with 20 mg roxinol prior to wound care.
--- NOTE | 2019-12-04 08:48 | NUR ---
REPORTS AT BEDSIDE, PATIENT SLEEPING AT THIS TIME. NO S/S OFPAIN ASSESSED.
--- NOTE | 2019-12-04 08:49 | NUR ---
PATIENT [id number] WITH BREAKFAST, ONLY TOOK A FEW SMALL BITES. ABLE TO TAKE PILLS CRUSHED IN APPLESAUCE. LAZAR TO GRAVITY. PATIENT WAKES TO VOICE. REPOSITIONED AND FACE WASHED.
--- NOTE | 2019-12-04 11:07 | NUR ---
S/O HOA AT BEDSIDE. PATIENT NONVERBAL THIS AM, BUT DOES REPSOND BY NODDING. REPOSITIONED TO L SIDE.
--- NOTE | 2019-12-04 13:00 | NUR ---
PATIENT HAD LARGE INCONTINENT BM. BED BATH COMPLETE AND LINENS CHANGES. PATIENT TOOK BITES OF HER LUNCH, ORAL CARE COMPLETED. DRESSINGS TO BUTTOCKS/GROIN CHANGED. PATIENT MEDICATED WITH ROXINOL PER EMAR. BED ALARM IN PLACE.
--- NOTE | 2019-12-04 13:38 | NUR ---
PAL CARE COMFORT CARE VISIT - Pt sound asleep. She did not wake either time I came by to visit. She has upper airway secretions noted with noisy respirations/snoring. Eyes rolled back with eyelids partially open. Color has become more sallow since I saw Reema last, two days ago. She appears comfortable in her sleep without nonverbal indicators of pain, anxiety or distress noted other than noisy respirations. No family at bedside currently. Supportive visits to continue.
--- NOTE | 2019-12-04 16:56 | NUR ---
PATIENT REPOSITIONED AND ORAL CARE COMPLETE. PATIENT OFFERED PO FLUIDS, ONLY ABLE TO TAKE SMALL SIPS WITH A SPOON. MOTHER DENNY AT BEDSIDE AND DENIES ANY NEEDS AT THIS TIME.
--- NOTE | 2019-12-04 16:59 | NUR ---
MOTHER DENNY WENT HOME FOR THE NIGHT. PATIENT SLEEPING AT THIS TIME. NO S/S OF PAIN OR DISCOMFORT. WILL CONT TO MONITOR.
--- NOTE | 2019-12-04 18:19 | NUR ---
COMPLETE LINEN CHANGE AND WOUND CARE COMPLETE. PATIENT TOO DROWSY TO SAFELY EAT DINNER. PAINFUL WITH REPOSITION AND DRESSING CHANGE, MEDICATED WITH ROXINOL. 2 LARGE INCONTINENT BM'S THIS SHIFT. PATIENT CONTINUES TO WAKE TO VOICE, BUT FALLS QUICKLY BACK TO SLEEP. NO SOB OR C/O NAUSEA THIS SHIFT. ABLE TO SAY WORDS AT TIMES AND ON OCCASION NODS TO QUESTIONS ASKED.
--- NOTE | 2019-12-05 05:56 | NUR ---
SHIFT SUMMARY PT IS A 54 Y/O FEMALE, ADMITTED FOR SEPSIS, AND CURRENTLY COMFORT CARE. PT DOES OPEN EYES TO VOICE, BUT OTHERWISE DIDN'T RESPOND. SOME GASPING RESPIRATIONS NOTED. SHE WAS MEDICATED TWICE FOR PAIN WITH PRN ROXANOL, DRESSING ON BUTTOCKS CHANGED WITH PETROLEUM DRESSINGS. TURN Q2H. NO OTHER ACUTE CHANGES IN PT CONDITION NOTED. WILL CONTINUE TO MONITOR AND TREAT PER EMAR UNTIL HAND OFF TO DAY SHIFT RN.
--- NOTE | 2019-12-05 07:12 | NUR ---
REPORT RECEIVED FROM MARIELLA MEZA. PATIENT IS SLEEPING AT THIS TIME. NO S/S OF PAIN NOTED. FALL PRECAUTIONS IN PLACE. LAZAR PATENT AND DRAINING TO GRAVITY. CURRENTLY NO FAMILY AT BEDSIDE.
--- NOTE | 2019-12-05 10:35 | NUR ---
PATIENT SLEEPING AT THIS TIME. CONTINUES TO WAKE BRIEFLY TO VOICE AND THEN QUICKLY BACK TO SLEEP. NO S/S OF PAIN ASSESSED. FALL PRECAUTIONS IN PLACE.
--- NOTE | 2019-12-05 10:48 | NUR ---
PATIENT MEDICATED WITH ROXINOL TO TREAT PAIN AND LABORED BREATHING. ATTENDS CHECKED AND PATIENT REMAINS DRY AT THIS TIME. ORAL CARE ATTEMPTED, BUT PATIENT BITING DOWN ON SUCTION SWAB.
--- NOTE | 2019-12-05 11:30 | NUR ---
[facility] Comfort Care visit - Pt is alone in the room. Her breathing is slow, snorous, sl labored. She appears comfortable with no groaning, grunting or grimacing noted. Her color continues to change daily and she appears to be moving through and transitioning to actively dying at this time. I will remain available and look for family when they visit. Reema did not wake to voice or touch and I did not disturb her.
--- NOTE | 2019-12-05 12:17 | NUR ---
SPOKE WITH PATIENTS MOTHER AND MESSAGE LEFT WITH HOA HER LIFE PARTNER THAT SHE HAS DECLINED THROUGH THE NIGHT. ENCOURAGED FAMILY IF THEY DESIRED TO BE HERE WHEN SHE PASSES AWAY THAT THEY SHOULD COME IN. MOTHER STATED THAT SHE WILL BE IN SOON.
--- NOTE | 2019-12-05 14:15 | NUR ---
PATIENT SLEEPING AT THIS TIME. NO S/S OF PAIN NOTED. ATTENDS REMAIN DRY. LAZAR TO GRAVITY. FALL PRECAUTIONS IN PLACE.
--- NOTE | 2019-12-05 14:30 | NUR ---
Spiritual care note: Called in to provide prayer and res counselor to tearful family. Reema is growning. RN informed and pt medicated. Facilitated prayer at bedside with family. Reema opens eyes to touch, but does not focus. Color change noted. She appears to be nearing end-of-life. Informed family of meds available for comfort and to not hesitate to ask for these. I have an easy rapport with family and they responded well to res counselor. Reema's mom, sister, brother and MAYA in room. Encouraged self-care. I will remain available.
--- NOTE | 2019-12-05 15:30 | NUR ---
CHAPLAIN SEAY AT BEDSIDE SITTING WITH FAMILY. PATIENT MEDICATED WITH ROXINOL FOR PAIN. COMFORT CART ORDERED.
--- NOTE | 2019-12-05 17:50 | NUR ---
FAMILY AT BEDSIDE. PATIENT REPOSITIONED. MEDICATED AT FAMILY REQUEST WITH ROXINOL FOR PAIN AND DYSPNEA. ATROPINE DROPS WERE INEFFECTIVE IN TREATING SECRETIONS, WILL TRY SCOPALAMINE PATCH. ATTENDS AND DRESSINGS TO BUTTOCKS/GROIN CHANGED. FAMILY DENIES ANY FURTHER NEEDS AT THIS TIME.
--- NOTE | 2019-12-06 05:51 | NUR ---
SHIFT SUMMARY PT IS A 54 Y/O FEMALE, CURRENTLY ON COMFORT CARE. SHE IS UNRESPONSIVE, THOUGH EYES ARE OCCASIONALLY OPEN AND DRIFTING FROM SIDE TO SIDE. GASPING RESPIRATIONS AND OCCASIONALLY RESPIRATORY PAUSES NOTED. PT FAMILY AT BEDSIDE FOR FIRST HALF OF SHIFT, AND VERY INSISTENT ON PT RECEIVING PAIN MEDS "EVERY HOUR, ON THE HOUR" EVEN AFTER EDUCATED ON THE POSSIBILITY OF RESPIRATORY DEPRESSION WITH HIGH DOSES OF PAIN MEDS. SHE WAS MEDICATED MULTIPLE TIMES WITH PRN ROXANOL 20 MG, AND APPEARED COMFORTABLE AT REST WITH NO S/S OF PAIN. NO ACUTE CHANGES IN PT CONDITION NOTED. WILL CONTINUE TO MONITOR AND TREAT PER EMAR UNTIL HAND OFF TO DAY SHIFT RN.
--- NOTE | 2019-12-06 16:21 | NUR ---
AT 1530 CHANGED XEROFORM ON COCCYX/BUTTOX DURING INCONTINENCE CHANGE.
--- NOTE | 2019-12-06 17:11 | NUR ---
Met with patient and family. pt progressing and is eminent. Non responsive some eye movement unable to blink, increased scleral edema and repsiration becoming more coarse. Review of their support and dedication and supportive visit. They ave been at bedside all day. suggested they reminisce so she can hear her voaice and then take frequnt breaks. Suggested in may happen when they are not in room. will continue with supportive visits.
--- NOTE | 2019-12-06 18:29 | NUR ---
Comfort Care: Pt experiencing increased secretions, per RECORDS ASSISTANT. RN medicates patient with PRN atropine. Pt already has scopolomine patch on for symptom. RN states respirations have changed during this shift. Pt seems to be progressing and is in actively dying phase.
--- NOTE | 2019-12-06 18:38 | NUR ---
SHIFT SUMMARY. MOTHER AND SISTER AT BEDSIDE FOR MOST OF THE SHIFT. PT COMFORTABLE MOST OF THE SHIFT UNTIL THIS EVENING. PT BEGAN HAVING INCREASED RESPIRATIONS AND SECRETIONS, PT MEDICATED PER EMAR. FAMILY EDUCATED ON PT TRANSITIONING SYMPTOMS AND MANAGEMENT OF SYMPTOMS, FAMILY AGREES WITH PLAN OF CARE. PT'S SISTER REPORTED THAT THE HAVE CHOSEN [place] [facility] THE [facility] FOR THE HOME. NO OTHER CHANGES OR CONCERNS. PT HAS BEEN UNRESPONSIVE THE ENTIRE SHIFT.
--- NOTE | 2019-12-06 19:00 | NUR ---
COMFORT CARE RECIEVED REPORT IN ROOM. FAMILY AT BEDSIDE. BREATHING RATTLES NOTED. PT PREVIOUSLY MEDICATED BY DAYSHIFT NURSE. PASTORAL CARE RECIEVED WELL. WILL CONTINUE TO MONITOR.
--- NOTE | 2019-12-06 19:18 | NUR ---
SUSPENDER CUTTER REPORTS PT STOPPED BREATHING. NO PULSES NOTED UPON ASSESSMENT. FAMILY CURRENTLY AT BEDSIDE. PROVIDED COMFORT AND PRIVACY AT THIS TIME. WILL NOTIFY FINE ARTS TEACHER PHYSICIAN.
--- NOTE | 2019-12-06 20:16 | NUR ---
Pastoral care visitation conducted. Condolences and deepest sympathy extended to family. Provided reflective space and empathic presence. Prayer offered with family gathered around bedside. Family remained at bedside thereafter. Will remain available for further pastoral support.
== END 2019-12-06 19:18 | DRG 871 ==
LOC: ER 15:51 → ICUE 20:22 → PCU 20:22 → ICUE 23:28 → PCU 11-27 11:50 → MEDS 11-30 17:06
PROVIDERS: Emergency Medicine; Family Medicine; Internal Medicine; Internal Medicine Critical Care Medicine; Internal Medicine Pulmonary Disease; ADMIT Internal Medicine
PROC: 02HV33Z Insertion of Infusion Device into Superior Vena Cava, Percutaneous Approach (ICD-10-PCS; principal; 2019-11-02)
PROC: 3E043XZ Introduction of Vasopressor into Central Vein, Percutaneous Approach (ICD-10-PCS; 2019-11-02)
PROC: 0W9G30Z Drainage of Peritoneal Cavity with Drainage Device, Percutaneous Approach (ICD-10-PCS; 2019-11-07)
PROC: 30243N1 Transfusion of Nonautologous Red Blood Cells into Central Vein, Percutaneous Approach (ICD-10-PCS; 2019-11-08)
PROC: 0DJ08ZZ Inspection of Upper Intestinal Tract, Via Natural or Artificial Opening Endoscopic (ICD-10-PCS; 2019-11-09)
DX: A41.9 Sepsis, unspecified organism (principal); J18.9 Pneumonia, unspecified organism; G92 Toxic encephalopathy; K65.2 Spontaneous bacterial peritonitis; D65 Disseminated intravascular coagulation [defibrination syndrome]; J96.01 Acute respiratory failure with hypoxia; N17.0 Acute kidney failure with tubular necrosis; R65.21 Severe sepsis with septic shock; Z68.41 Body mass index [BMI] 40.0-44.9, adult; E87.1 Hypo-osmolality and hyponatremia; A04.72 Enterocolitis due to Clostridium difficile, not specified as recurrent; K76.6 Portal hypertension; B37.49 Other urogenital candidiasis; K62.5 Hemorrhage of anus and rectum; K72.90 Hepatic failure, unspecified without coma; Z20.828 Contact with and (suspected) exposure to other viral communicable diseases; Z51.5 Encounter for palliative care; K21.9 Gastro-esophageal reflux disease without esophagitis; Z98.84 Bariatric surgery status; E66.01 Morbid (severe) obesity due to excess calories; K70.11 Alcoholic hepatitis with ascites; Z90.49 Acquired absence of other specified parts of digestive tract; E87.6 Hypokalemia; F32.9 Major depressive disorder, single episode, unspecified; Z66 Do not resuscitate; S30.817A Abrasion of anus, initial encounter; D64.9 Anemia, unspecified; K70.30 Alcoholic cirrhosis of liver without ascites; Y92.9 Unspecified place or not applicable
CPT/HCPCS: 36415; 36430; 36556; 36569; 49083; 51702; 71045; 74150; 74177; 76705; 80048; 80053; 80069; 80202; 81001; 82040; 82042; 82140; 82248; 82272; 82330; 82533; 82550; 82945; 82947; 83605; 83615; 83735; 84100; 84132; 84157; 84439; 84443; 84484; 85014; 85018; 85025; 85027; 85610; 86850; 86900; 86901; 86923; 87040; 87070; 87075; 87081; 87086; 87102; 87103; 87205; 87324; 87493; 88108; 88305; 89051; 92526; 92610; 93005; 93010; 96361-59; 96365-59; 97110; 97162; 97166; 97530; 97535; 99285-25; C1751; C1769; C9113; J0171; J0696; J1430; J1450; J1644; J1720; J1940; J2250; J2354; J2370; J2543; J2704; J3010; J3370; J3411; J3430; J3475; J3480; J7030; J7040; J7050; J7060; J7120; P9016; P9046; Q9967; U0003